=== PATIENT | female | born 1940 | race Caucasian/White ===

== ENCOUNTER → 2017-05-25 11:54 | Outpatient (CLI) | payer MEDICARE, OTHER, SELFPAY ==
[2017-05-25 14:22] LABS: Erythrocyte Sedimentation Rate 18 mm/hr (0-30)
[2017-05-25 14:37] LABS: ALB/GLOB Ratio 1.1 RATIO (0.9-2.4); AST(SGOT) 24 U/L (15-37); Alanine Aminotransfer ALT/SGPT 25 U/L (13-56); Albumin, Serum 4.1 g/dL (3.2-5.0); Alkaline Phosphatase 78 U/L (45-117); Anion Gap 8 (5-15); BUN 23 mg/dL (7-18); BUN/Creat Ratio 28.4 RATIO (10-20); Calcium,Total 9.1 mg/dL (8.5-10.1); Chloride 106 mmol/L (98-107); Creatinine, Serum 0.81 mg/dL (0.55-1.02); EST Glomerular Filtration Rate 73 mL/min (>60); Est Glom Filt Rate - Afr Amer 89 mL/min (>60); Globulin 3.7 g/dL (2.2-4.2); Glucose 96 mg/dL (74-106); Potassium 4.8 mmol/L (3.5-5.1); Protein, Total 7.8 g/dL (6.4-8.2); Sodium Level 137 mmol/L (136-145); Thyroid Stim Hormone (TSH) 1.41 uIU/mL (0.358-3.74)
== END ==
PROVIDERS: Family Provider Internal Medicine; PCP Internal Medicine; Visit Provider Internal Medicine Endocrinology, Diabetes & Metabolism
DX: E03.8 Other specified hypothyroidism (principal); E55.9 Vitamin D deficiency, unspecified; R77.1 Abnormality of globulin; M81.0 Age-related osteoporosis without current pathological fracture
CPT/HCPCS: 36415; 80053; 82306; 84443; 85652

== ENCOUNTER → 2017-06-08 11:11 | Outpatient (CLI) | payer MEDICARE, OTHER, SELFPAY ==
--- NOTE | 2017-06-08 11:20 | RAD_ITS ---
STUDY: X-RAY CHEST REASON FOR EXAM: Female, 77 years old. Preop knee replacement TECHNIQUE: Frontal and lateral views of the chest. COMPARISON: CT scan 11/08/2015. FINDINGS: Normal lung volumes. On the left, there may be a 1.5 cm nodule of the mid left lung versus a density in the fourth rib. This needs further evaluation with CT scan. No infiltrates. No effusions. Normal size heart. Normal mediastinum and dede. Normal visualized pulmonary arteries. There is atherosclerotic tortuosity of the aortic arch and descending thoracic aorta. Normal visualized thoracic spine. Normal visualized ribs, clavicles, and shoulders. There is no demonstrated abnormality of the visualized soft tissue structures of the upper abdomen. RAD/Chest PA and Lateral IMPRESSION: On the left, there may be a 1.5 cm nodule of the mid left lung versus a density in the fourth rib. This needs further evaluation with CT scan. Electronically Signed: Tyrone Weems MD at 20:38 EDT , Service support ,
== END ==
PROVIDERS: Family Provider Internal Medicine; PCP Internal Medicine; Visit Provider Orthopaedic Surgery
DX: Z01.810 Encounter for preprocedural cardiovascular examination (principal); Z01.811 Encounter for preprocedural respiratory examination
CPT/HCPCS: 71046

== ENCOUNTER → 2017-06-18 12:40 | Outpatient (CLI) | payer MEDICARE, OTHER, SELFPAY ==
--- NOTE | 2017-06-18 12:42 | ECHOD_ITS ---
Reason For Study: MURMUR Procedure This was a 2D Doppler, Color Flow transthoracic echocardiogram. The exam was of fair technical quality due to diminished acoustic windows. The study was technically difficult. Exam performed in department. Left Ventricle Normal LV size. Left ventricular systolic function is normal. The estimated ejection fraction is 65 %. Unable to assess diastolic dysfunction. No regional wall motion abnormalities noted. Right Ventricle Normal RV size. Normal systolic function. Atria The left atrium is mildly enlarged. Normal right atrium. No doppler evidence for ASD. Mitral Valve There is mild mitral annular calcification. Extension of the mitral annular calcifcation onto the posterior mitral valve leaflet. Mild (1+) mitral valve insufficiency. Tricuspid Valve Normal tricuspid valve. Trivial tricuspid valve insufficiency. Right ventricular systolic pressure estimated to be 24 mmHg. Aortic Valve Trisinus/trileaflet aortic valve. Mild diffuse aortic valve thickening. Pulmonic Valve Normal pulmonic valve. Great Vessels Borderline enlarged aortic root. Calcified aortic root. Pericardium/Pleural No pericardial effusion. MMode/2D Measurements & Calculations LVIDd: 3.9 cm IVSd: 1.1 cm Ao root diam: 2.7 cm LVIDs: 2.7 cm LVPWd: 1.3 cm LA dimension: 3.5 cm FS: 30.4 % LAV(MOD-bp): 46.5 ml LA A4 area: 16.0 cm2 RA A4 area: 9.7 cm2 LAV(MOD-bp) Indexed: 29.8 ml/m2 LAV(MOD-sp2): 41.0 ml LAV(MOD-sp4): 43.0 ml Doppler Measurements & Calculations MV E max antonino: 62.7 cm/sec Lat Peak E' Antonino: 7.0 cm/sec Med Peak E' Antonino: 4.8 cm/sec MV A max antonino: 103.7 cm/sec E/E' lat: 9.0 E/E' med: 13.0 MV E/A: 0.61 Ao V2 max: 146.6 cm/sec LV V1 max: 99.6 cm/sec PA V2 max: 122.3 cm/sec Ao max P.6 mmHg LV V1 max P.0 mmHg TR max antonino: 230.3 cm/sec TR max P.4 mmHg Interpretation Summary The study was technically difficult. Left ventricular systolic function is normal. The estimated ejection fraction is 65 %. The left atrium is mildly enlarged. There is mild mitral annular calcification. Extension of the mitral annular calcifcation onto the posterior mitral valve leaflet. Mild (1+) mitral valve insufficiency. Trivial tricuspid valve insufficiency. Mild diffuse aortic valve thickening. Borderline enlarged aortic root. Calcified aortic root. Right ventricular systolic pressure estimated to be 24 mmHg. Unable to assess diastolic dysfunction. Ordering Physician: Richie Avila Referring Physician: Melisa Lucero Performed By: Guera Gould, SEBASTIAN, RVT
== END ==
PROVIDERS: Family Provider Internal Medicine; PCP Internal Medicine; Visit Provider Internal Medicine Cardiovascular Disease
DX: R01.1 Cardiac murmur, unspecified (principal)
CPT/HCPCS: 93306

== ENCOUNTER → 2017-06-25 10:03 | Outpatient (CLI) | payer MEDICARE, OTHER, SELFPAY ==
--- NOTE | 2017-06-25 10:06 | CDU_ITS ---
Reason For Study: CAROTID STENOSIS Rt. Velocities/BP Lt. Velocities/BP Prox CCA 58.8/4.64 cm/sec. Prox CCA 84.7/8.65 cm/sec. Mid CCA 48.9/8.97 cm/sec. Mid CCA 69.8/11.0 cm/sec. Dist CCA 51.0/6.93 cm/sec. Dist CCA 64.6/13.3 cm/sec. Prox ICA 166.0/17.4 cm/sec. Prox ICA 119.0/18.3 cm/sec. Mid ICA 140.0/20.2 cm/sec. Mid ICA 91.1/18.4 cm/sec. Dist ICA 110.0/21.5 cm/sec. Dist ICA 96.9/23.6 cm/sec. Rt. ICA/CCA = 166.0/48.9=3.4. Lt. ICA/CCA = 119.0/69.8=1.7. Prox ECA 103.0/0.0 cm/sec. Prox ECA 122.0/0.0 cm/sec. Rt. Vert. 46.4/7.07 cm/sec. Lt. Vert. 57.5/11.4 cm/sec. Right Extracranial There is intimal thickening but no significant atherosclerotic plaque noted in the right common carotid artery. There is heterogeneous, irregular atherosclerotic plaque noted in the right internal carotid artery. There is intimal thickening but no significant atherosclerotic plaque noted in the right external carotid artery. Antegrade flow is noted in the right vertebral artery. Left Extracranial There is homogeneous, smooth atherosclerotic plaque noted in the left common carotid artery. There is heterogeneous, irregular atherosclerotic plaque noted in the left internal carotid artery. The atherosclerotic plaque causes acoustic shadowing. There is intimal thickening but no significant atherosclerotic plaque noted in the left external carotid artery. Antegrade flow is noted in the left vertebral artery. Procedure Carotid Duplex [id number]. The exam was diagnostic. Exam performed in department. Interpretation Summary Moderate (50-69%) stenosis right extracranial internal carotid. Mild (<50%) stenosis left extracranial internal carotid. Flow within the vertebral arteries is antegrade bilaterally. Ordering Physician: Melisa Lucero Referring Physician: Melisa Lucero Performed By: Guera Gould RDCS, AINSLEY
== END ==
PROVIDERS: Family Provider Internal Medicine; PCP Internal Medicine; Visit Provider Internal Medicine
DX: I65.23 Occlusion and stenosis of bilateral carotid arteries (principal)
CPT/HCPCS: 93880

== ENCOUNTER → 2017-06-27 14:55 | Outpatient (CLI) | payer MEDICARE, OTHER, SELFPAY ==
--- NOTE | 2017-06-27 14:57 | CT_ITS ---
STUDY: CT CHEST WITH CONTRAST REASON FOR EXAM: Female, 77 years old. Pulmonary nodule. Shortness of breath. RADIATION DOSAGE (If Supplied By Facility): CTDIvol = ( 7.45 ) mGy, DLP = ( 287.77 ) mGycm TECHNIQUE: Transaxial imaging was performed following intravenous administration of 75mL ml of Isovue 300 contrast material. Coronal and sagittal reformatted images were created. Individualized dose optimization techniques were used for this CT. COMPARISON: X-ray dated 06/08/2017. CT dated 11/08/2015. FINDINGS: There are no pulmonary infiltrates or pleural effusions. There are no pulmonary nodules or masses. There is no pneumothorax. The heart and pericardium are within normal limits. There is no thoracic lymphadenopathy. There is stable ectasia of the ascending aorta, measuring up to 4 cm. The aorta is otherwise normal in caliber. There is no evidence of thoracic aortic dissection. Images through the upper abdomen demonstrate no significant abnormality. There are healing left-sided rib fractures noted. These appear subacute in nature. CT/Chest WITH Contrast IMPRESSION: Clear lungs. No pulmonary nodules or masses. Healing left-sided rib fractures which appear subacute in nature. Stable ectasia of the ascending aorta, measuring 4 cm. Electronically Signed: Omar Lunsford, at 16:09 EDT Tel , Service support ,
== END ==
PROVIDERS: Family Provider Internal Medicine; PCP Internal Medicine; Visit Provider Internal Medicine
DX: R91.1 Solitary pulmonary nodule (principal)
CPT/HCPCS: 71260; Q9967

== ENCOUNTER → 2017-07-06 13:23 | Outpatient (CLI) | payer MEDICARE, OTHER, SELFPAY ==
--- NOTE | 2017-07-06 13:27 | CT_ITS ---
STUDY: CTA NECK WITH CONTRAST REASON FOR EXAM: Female, 77 years old. History of carotid stenosis. RADIATION DOSAGE (If Supplied By Facility): CTDIvol = ( 20.53 ) mGy, DLP = ( 460.72 ) mGycm TECHNIQUE: CT angiography with multi-detector data acquisition was performed from the aortic arch to the skull base following intravenous administration of 100 ml of Isovue 370 contrast. MIP images were reconstructed from the axial data set. Post-processing of the angiographic images was performed, with multiplanar reformation and 3D reconstruction. Individualized dose optimization techniques were used for this CT. COMPARISON: Comparison is made with prior examination dated May 12, 2016. FINDINGS: AORTIC ARCH: There is mild degree of atherosclerotic calcific plaque formation of the aortic arch and great vessels arising from the aortic arch, without a hemodynamically significant stenosis. There is a normal origin of the brachiocephalic, left common carotid, and left subclavian arteries. RIGHT CAROTID ARTERIES: Normal right common carotid artery (CCA). Normal right common carotid bulb. There is mild atherosclerotic plaque formation of the origin of the right internal carotid artery with less than 50% cross sectional diameter stenosis. Normal visualized cervical portion of the right internal carotid artery. Normal origin of the right external carotid artery (ECA). LEFT CAROTID ARTERIES: Normal left common carotid artery (CCA). Normal left common carotid bulb. There is mild atherosclerotic plaque formation of the origin of the left internal carotid artery with less than 50% cross sectional diameter stenosis. Normal visualized cervical portion of the left internal carotid artery. Normal origin of the left external carotid artery (ECA). VERTEBRAL ARTERIES: There is enhancement within the bilateral vertebral arteries with a small right vertebral artery, and a dominant left vertebral artery. CT/CTA Neck W/WO Contrast IMPRESSION: Stable examination demonstrating less than 50% narrowing of the origin of the right and left internal carotid arteries. Left dominant vertebral artery. Electronically Signed: Wilbert Garcia MD at 14:38 EDT Tel [phone], Service support ,
== END ==
PROVIDERS: Family Provider Internal Medicine; PCP Internal Medicine; Visit Provider Internal Medicine
DX: I65.23 Occlusion and stenosis of bilateral carotid arteries (principal)
CPT/HCPCS: 70498; Q9967

== ENCOUNTER 2017-07-07 11:04 | Inpatient (IN) | payer MEDICARE, OTHER, SELFPAY ==
[2017-07-07 11:04] VITALS: BP 164/98; PULSE 70; RESP 15; TEMP 36.8; O2SAT 98; BMI 25.4
--- NOTE | 2017-07-07 11:17 | RAD_ITS ---
STUDY: X-RAY CHEST REASON FOR EXAM: Female, 77 years old. Status post fall TECHNIQUE: Single AP portable view of the chest. COMPARISON: June 08, 2017 chest x-ray FINDINGS: Interstitial markings are mildly prominent. Likely summation of shadows there is some increased density within the left upper lobe near the left sixth rib. There is no demonstrated pleural abnormality. There is mild cardiac enlargement. Normal mediastinum and dede. Normal visualized pulmonary arteries. Normal visualized aortic arch and descending thoracic aorta. Normal visualized thoracic spine. There is a old left sixth rib fracture. There is focal increased density. There is no demonstrated abnormality of the visualized soft tissue structures of the upper abdomen. RAD/Chest 1 View (Portable) IMPRESSION: Old left sixth rib fracture. Increased density within the left upper lobe which may represent a focal infiltrate and/or mass. Recommend follow-up CT scan of the chest. No definitive evidence of an acute fracture. Electronically Signed: Danna Santoro MD at 12:33 EDT Tel , Service support ,
--- NOTE | 2017-07-07 11:17 | EKG12_ITS ---
Test Reason : LOWER EXTREMITY Blood Pressure : / mmHG Vent. Rate : 056 BPM Atrial Rate : 056 BPM P-R Int : 188 ms QRS Dur : 070 ms QT Int : 442 ms P-R-T Axes : 050 001 050 degrees QTc Int : 426 ms Sinus bradycardia Inferior infarct , age undetermined Abnormal ECG Confirmed by ANTONIO MELGAR, GONZALEZ ([id number]), video editor BONILLA PAYNE ([id number]) on 07/11/2017 2:17:57 PM Referred By: Melisa Lucero Confirmed By:GONZALEZ ALVAREZ MD
--- NOTE | 2017-07-07 11:18 | RAD_ITS ---
STUDY: X-RAY - PELVIS AND LEFT HIP REASON FOR EXAM: Female, 77 years old. Injury TECHNIQUE: Radiological exam, hip, unilateral, with pelvis when performed; 2 or 3 views. COMPARISON: None. FINDINGS: There is comminuted intertrochanteric fracture on the left. There is no osseous destruction. There is no osteonecrosis. The left hip joint space is well-maintained. There is slight loss of articular cartilage of the right hip. The SI joints appear intact. Symphysis pubis appears intact. RAD/Hip 2-3 Views with Pelvis IMPRESSION: Comminuted left intertrochanteric fracture Electronically Signed: Omar Washburn MD at 12:17 EDT Tel , Service support ,
--- NOTE | 2017-07-07 11:20 | ED.DCSUM_ITS ---
- ER Visit Summary Date of Service: 07/07/17 Chief Complaint: []tripped concrete left hip pain unable to walk History of Present Illness: The patient is a 77 F [] as above usual state of health until she tripped and fell unable to walk saying her left hip pain no head neck chest or abdominal pain no fever cough her only complaint is left hip pain. Physical Examination: [] L signs are within normal range, head neck chest unremarkable the lungs are clear the heart tones are normal abdomen soft nontender she has severe left hip pain to any type of range of motion and palpation the knee thigh tib-fib ankle and foot are unremarkable dorsi and plantarflexion toe function is normal the foot appears well perfused the right lower extremity the upper extremities are unremarkable her back is nontender neurologically she is awake moving all other extremities she denies head pain chest pain or abdominal pain Test Results: [] Emergency Department Course and Treatment: [] The patient studies are all generally unremarkable see those reports, the left hip x-ray shows intertrochanteric hip fracture, spoke with Dr. Dyllan Cain in the hospitalist though by to see the patient shortly for further management and admission Treatment Plan: [] Disposition: [] Admit stable Impression: [] Left intertrochanteric hip fracture, fall This note was generated with miradio[employer]fm dictation software. It may contain incorrect words, spelling, and punctuation that were not noted in review of the chart prior to signing ED Disposition - Plan for ED Patient: Chief Complaint: Lower Extremity Injury Referrals: Melisa Lucero DO [Primary Care Provider] -
[2017-07-07] MEDS: Ondansetron 4 MG/2 ML Vial IV ×2 (11:35→21:47)
[2017-07-07] MEDS: morphine 8 MG/ML Syringe IV (11:36)
[2017-07-07 11:50] LABS: Absolute Lymphocyte Count 1.87 X10^3/ul (0.83-4.51); Absolute Neutrophil Count 3.2 X10^3/uL (2.0-7.7); Basophil# 0.05 X10^3/uL; Basophil% 0.9 % (0-1); Eosinophil# 0.18 X10^3/uL; Eosinophils% 3.1 % (0-5); Hematocrit 33.8 % (37-47); Lymphocyte # 1.87 X10^3/ul (4.0); Lymphocyte % 32.6 % (19-41); Mean Corp Hgb Conc 32.5 g/gl (32-36); Mean Corpuscular Hgb 30.1 pg (27.0-32.0); Mean Corpuscular Volume 92.3 fL (81-99); Monocyte# 0.45 X10^3/uL; Monocyte% 7.8 % (0-10); Neutrophil # 3.17 X10^3/uL (2.7-7.7); Neutrophil % 55.3 % (47-70); Platelet Count 269 K/mm3 (150-450); RBC Distribution Width CV 13.6 % (11.6-14.6); RBC Distribution Width SD 45.8 fl (35.1-43.9); Red Blood Count 3.66 M/mm3 (4.2-5.4); White Blood Count 5.7 K/mm3 (4.4-11.0)
[2017-07-07 11:51] LABS: POSITIVE COUNT NO; POSITIVE DIFFERENTIAL NO; POSITIVE MORPHOLOGY NO
[2017-07-07 12:07] LABS: Anion Gap 7 (5-15); BUN 26 mg/dL (7-18); BUN/Creat Ratio 28.4 RATIO (10-20); Calcium,Total 9.2 mg/dL (8.5-10.1); Chloride 108 mmol/L (98-107); Creatinine, Serum 0.92 mg/dL (0.55-1.02); EST Glomerular Filtration Rate 64 mL/min (>60); Est Glom Filt Rate - Afr Amer 77 mL/min (>60); Estimated Creatinine Clearance 37.95 ml/min; Glucose 101 mg/dL (74-106); Potassium 4.7 mmol/L (3.5-5.1); Sodium Level 139 mmol/L (136-145)
[2017-07-07 12:31] VITALS: BP 147/62; PULSE 77; RESP 14; O2SAT 92
[2017-07-07] MEDS: Lactated Ringers 1,000 ML 100 ML IV (14:00)
[2017-07-07 14:10] VITALS: BP 132/59; PULSE 77; RESP 18; TEMP 36.7; O2SAT 94; BMI 24.7
[2017-07-07] MEDS: Morphine 4 MG/ML Syringe IV ×3 (14:38→21:47)
--- NOTE | 2017-07-07 19:00 | HP.PCM_ITS ---
Problem List (1) Closed comminuted fracture of left hip Status: Acute Qualifiers: Encounter type: initial encounter Qualified Code(s): S72.092A - Other fracture of head and neck of left femur, initial encounter for closed fracture (2) Carotid stenosis Status: Chronic Qualifiers: Laterality: bilateral Qualified Code(s): I65.23 - Occlusion and stenosis of bilateral carotid arteries (3) Hypothyroidism Status: Chronic Qualifiers: Hypothyroidism type: acquired Qualified Code(s): E03.9 - Hypothyroidism, unspecified (4) Hypertension Status: Chronic Qualifiers: Hypertension type: essential hypertension History of Present Illness Date of Admission: 07/07/17 Chief Complaint: Fracture left hip. Patient is a 77 years old female who presents with left hip fracture, admitted on 07/07/17. She fell at home, which was ill-defined. She denied of any dizziness, loss of consciousness, or chest pain, but unable to explain how she fell. She was found to have left comminuted fracture. Dr. Cain was contacted already, planing for surgery. She has history of hypotension during the shoulder surgery in the past. The cause was thought to be due to vasovagal reaction. She actually had plan to have knee surgery in few month, started work-up for preparation. 2D- echocardiogram was done on 06/18/17, showed preserved LV function and mild MR, trivial TR, and mitral and aortic root calcification. CTA of neck showed stable 50% bilateral Internal carotid artery stenosis. Past Medical History Past Medical History (Chronic Problems): Chronic Problems (Last Reviewed 06/08/17 @ 10:11 by Alesha Mead) Carotid stenosis (Chronic) Hypothyroidism (Chronic) Hyperlipidemia (Chronic) Hypertension (Chronic) Allergies ceftriaxone [From Rocephin] Allergy (Verified 07/07/17 11:10) Hives Penicillins Allergy (Verified 07/07/17 11:10) Hives Sulfa (Sulfonamide Antibiotics) Allergy (Verified 07/07/17 11:10) Hives tramadol Allergy (Verified 07/07/17 11:10) Nausea AGITATION vancomycin Allergy (Verified 07/07/17 11:10) Hives OMAR CASSIE SYNDROME Home Medications: Ambulatory Orders Medication Instructions Recorded Acetaminophen [Tylenol Arthritis] 650 mg PO 4X/DAY PRN PRN 10/05/15 Aspirin E.C. [Ecotrin] 81 mg PO QHS 10/05/15 Levothyroxine [Synthroid] 25 mcg PO DAILY 10/05/15 Lisinopril [Zestril] 20 mg PO QHS 10/05/15 Milk Thistle 525 mg PO DAILY 10/05/15 Multivitamins,Therapeutic 1 tab PO DAILY 10/05/15 [Multivitamin] [place]-3 Fatty Acids/Fish Oil [Fish 360 mg PO DAILY 10/05/15 Oil 1,000 mg Capsule] Pitavastatin Calcium [Livalo] 4 mg PO QHS 10/05/15 Ubidecarenone/Vit E Acetate [Co 100 mg PO DAILY 10/05/15 Q-10 100 mg Softgel] Venlafaxine HCl [Effexor] 75 mg PO QHS 10/05/15 cholecalciferol (vitamin D3) 1,000 2,000 unit PO BID tab 06/06/17 unit tablet gabapentin 300 mg capsule 300 mg PO QHS cap 06/08/17 Fexofenadine HCl 180 mg PO DAILY 07/07/17 Vitamin B Complex/Folic Acid 1 tab PO DAILY 07/07/17 [Super B Maxi Complex Caplet] Smoking Status: Never smoker - *Family History Maternal History Items: - - Unremarkable for CV probems in immediate families. Review of Systems Comment: ROS: In general: Patient has been in good health, denied of any constitutional symptoms, such as weight loss, or gain, fever, chills, or night sweats. Patient denied of any profound fatigue. HEENT: Unremarkable. Patient denied of any dizziness, chronic headache, blurred vision, double vision, dry mouth, or nasal congestion. CV/respiratory: There is no exertional shortness of breath, chest pain, palpitation, wheezing, cough, claudication, cold feet, or peripheral edema. GI: Patient denied any abdominal pain, nausea, vomiting, diarrhea, constipation, melena, or hematochezia. : Patient denied any significant urinary symptoms. Neurology: Unremarkable. There is no history of seizure as an adult. Psychological: Unremarkable. ?. Endocrine: Unremarkable. Musculoskeletal: fracture left hip. VTE Information - Inpt Only VTE Present on Admission: No VTE Mechan Device Prophylaxis: SCD's VTE Pharm Prophylaxis ordered?: No Reason prophylaxis not ordered:: Medical Contraindication - pending surgery. Patient Problems: Active and Suspected Problems (Last Reviewed 04/27/18 @ 10:11 by Alesha Mead) Closed comminuted fracture of left hip (Acute) Objective: In general, patient is a well-nourished and developed adult. HEENT: Head is atraumatic, and normocephalic. Pupils are equal, round, and reactive to light and accommodations. Neck is supple. There is no lymphadenopathy, or thyromegaly. Oral mucosa is pink, and moist. There are no lesions. Heart: Auscultation is normal with regular rhythm and rate. CARLOS A right 2nc ICS. S1 and S2 are present. Point of maximal impulse is not displaced. Lungs: Lungs are clear to auscultation bilaterally. There is no wheezing, or crackles. Abdomen: Abdominal wall is non-tender, and non-distended. There is no palpable mass or organomegaly. Normoactive bowel sounds are present. Extremities: There is no cyanosis or clubbing. Peripheral pulses are palpable. There is no edema. Tender over left proximal leg. Skin: There are no any skin discoloration or lesions. Neurological: CN II - XII are intact. Sensory and motor functions are grossly normal with no obvious deficit. Cerebellar functions are within normal range. Gait was not tested. - Physical Exam Vital Signs Temp Pulse Resp BP Pulse Ox 98.0 F 77 18 132/59 H 94 07/07/17 14:10 07/07/17 14:10 07/07/17 14:10 07/07/17 14:10 07/07/17 14:10 Oxygen Delivery Method Room Air Weight: 135 lb 3.2 oz Body Mass Index (BMI) 24.7 ECHO 06/18/17 Left ventricular systolic function is normal. The estimated ejection fraction is 65 %. The left atrium is mildly enlarged. There is mild mitral annular calcification. Extension of the mitral annular calcifcation onto the posterior mitral valve leaflet. Mild (1+) mitral valve insufficiency. Trivial tricuspid valve insufficiency. Mild diffuse aortic valve thickening. Borderline enlarged aortic root. Calcified aortic root. Right ventricular systolic pressure estimated to be 24 mmHg. Unable to assess diastolic dysfunction. Diagnostic Data Chest X-Ray 07/07/17 11:17 IMPRESSION: Old left sixth rib fracture. Increased density within the left upper lobe which may represent a focal infiltrate and/or mass. Recommend follow-up CT scan of the chest. No definitive evidence of an acute fracture. Electronically Signed: Danna Santoro MD at 12:33 EDT Tel , Service support , Hip/Pelvis X-Ray 07/07/17 11:18 IMPRESSION: Comminuted left intertrochanteric fracture Electronically Signed: Omar Washburn MD at 12:17 EDT Tel , Service support , Assessment/Plan Active and Suspected Problems (Last Reviewed 06/08/17 @ 10:11 by Alesha Mead) Closed comminuted fracture of left hip (Acute) Patient is a 77 years old female who presents with left hip fracture, admitted on 07/07/17. She fell at home, which was ill-defined. She denied of any dizziness, loss of consciousness, or chest pain, but unable to explain how she fell. She was found to have left comminuted fracture. Dr. Cain was contacted already, planing for surgery. She has history of hypotension during the shoulder surgery in the past. The cause was thought to be due to vasovagal reaction. She actually had plan to have knee surgery in few month, started work-up for preparation. 2D- echocardiogram was done on 06/18/17, showed preserved LV function and mild MR, trivial TR, and mitral and aortic root calcification. CTA of neck showed stable 50% bilateral Internal carotid artery stenosis. #1 Left comminuted fracture. S/P fall, probably mechanical. She had recent work-up for anticipating surgery in the fall. She is asymptomatic, no evidence of CHF. She has no respiratory issues. Proceed with surgery. #2 Essential hypertension. Blood pressure is adequate. #3 Carotid artery stenosis. Non-obstructive. Continue current medications. VTE prophylaxis: SCD only, anticipating surgery. Plan to start anticoagulation after surgery. GI prophylaxis: PPI po. She is full code. Disposition: to be determined. Code Visit [facility] E&M: [id number] [facility]
[2017-07-07] MEDS: Famotidine 20 MG Tablet PO (22:03)
--- NOTE | 2017-07-07 22:05 | NURSING ---
Pt attempted to take Pepcid, had difficulty swallowing it with water, choked and coughed a little, but able to spit pill out. States sometimes has trouble swallowing pills.
[2017-07-07 22:13] VITALS: BP 172/70; PULSE 89; RESP 16; TEMP 36.6; O2SAT 97
--- NOTE | 2017-07-07 23:45 | NURSING ---
Emesis x1 after attempting to eat a yogurt. Denies need for nausea med, states feels better now.
[2017-07-07] MEDS: Dext 5%-0.45% NS 1,000 ML 100 ML IV (23:56)
[2017-07-08] VITALS (17 sets, daily range): BP systolic 104–165; BP diastolic 45–92; PULSE 65–111; RESP 16–18; TEMP 36.6–37.9; O2SAT 88–100; BMI 24.7
[2017-07-08] MEDS: Morphine 4 MG/ML Syringe IV ×4 (01:40→15:54)
[2017-07-08] MEDS: proMETHazine 25 MG/ML Syringe 12.5 MG IV (03:08)
[2017-07-08 06:50] LABS: Absolute Lymphocyte Count 1.46 X10^3/ul (0.83-4.51); Absolute Neutrophil Count 6.5 X10^3/uL (2.0-7.7); Basophil# 0.03 X10^3/uL; Basophil% 0.3 % (0-1); Eosinophil# 0.04 X10^3/uL; Eosinophils% 0.5 % (0-5); Hematocrit 31.3 % (37-47); Hemoglobin 10.1 g/dl (12.0-15.0); International Normalized Ratio 1.2; Lymphocyte # 1.46 X10^3/ul (4.0); Lymphocyte % 16.5 % (19-41); Mean Corp Hgb Conc 32.3 g/gl (32-36); Mean Corpuscular Hgb 30.6 pg (27.0-32.0); Mean Corpuscular Volume 94.8 fL (81-99); Mean Platelet Vol. 10.1 fl (6.2-12.0); Monocyte# 0.84 X10^3/uL; Monocyte% 9.5 % (0-10); Neutrophil # 6.47 X10^3/uL (2.7-7.7); Neutrophil % 72.9 % (47-70); Partial Thromboplast Time 29.8 Seconds (24.1-36.2); Platelet Count 249 K/mm3 (150-450); Prothrombin Time (Protime)PT. 15.3 SECONDS (11.7-14.9); RBC Distribution Width CV 13.4 % (11.6-14.6); RBC Distribution Width SD 44.5 fl (35.1-43.9); White Blood Count 8.9 K/mm3 (4.4-11.0)
[2017-07-08 07:13] LABS: POSITIVE COUNT NO; POSITIVE DIFFERENTIAL NO; POSITIVE MORPHOLOGY NO
[2017-07-08 07:33] LABS: Anion Gap 5 (5-15); BUN 15 mg/dL (7-18); Calcium,Total 8.1 mg/dL (8.5-10.1); Chloride 105 mmol/L (98-107); Creatinine, Serum 0.79 mg/dL (0.55-1.02); EST Glomerular Filtration Rate 75 mL/min (>60); Est Glom Filt Rate - Afr Amer 91 mL/min (>60); Estimated Creatinine Clearance 38.44 ml/min; Glucose 129 mg/dL (74-106); Potassium 4.7 mmol/L (3.5-5.1); Sodium Level 136 mmol/L (136-145)
--- NOTE | 2017-07-08 07:44 | NURSING ---
Report called to R[facility], informed her that pt had had choked last evening on pepcid and yogurt, temp now is 99.1. LCTA on RA, went from 90 to 99% after she used incentive spirometer.
--- NOTE | 2017-07-08 08:05 | PCM.CONS.GEN ---
Reason for Consult History of Present Illness: The patient is a 77 year old female that fell outside her home yesterday when she stumbled injuring her left hip and left wrist. She denies any head injury or loss of consciousness. She denies being dizzy. She states her left hip felt fine before. She does have a history of bilateral knee arthritis pain. Left worse than right. Denies fever chills or systemic symptoms. Patient was not able to ambulate after falling. Brought to the hospital for evaluation and treatment. Patient has been planning left knee replacement in October [] Past Medical History Past Medical History (Chronic Problems): Chronic Problems (Last Reviewed 06/08/17 @ 10:11 by Alesha Mead) Carotid stenosis (Chronic) Hypothyroidism (Chronic) Hyperlipidemia (Chronic) Hypertension (Chronic) Allergies ceftriaxone [From Rocephin] Allergy (Verified 07/07/17 11:10) Hives Penicillins Allergy (Verified 07/07/17 11:10) Hives Sulfa (Sulfonamide Antibiotics) Allergy (Verified 07/07/17 11:10) Hives tramadol Allergy (Verified 07/08/17 03:03) Nausea sweating, heart racing, AGITATION vancomycin Allergy (Verified 07/07/17 11:10) Hives TAE CASSIE SYNDROME Home Medications: Ambulatory Orders Medication Instructions Recorded Acetaminophen [Tylenol Arthritis] 650 mg PO 4X/DAY PRN PRN 10/05/15 Levothyroxine [Synthroid] 25 mcg PO DAILY 10/05/15 Lisinopril [Zestril] 20 mg PO QHS 10/05/15 Pamplico-3 Fatty Acids/Fish Oil [Fish 360 mg PO DAILY 10/05/15 Oil 1,000 mg Capsule] Pitavastatin Calcium [Livalo] 4 mg PO QHS 10/05/15 RX: Aspirin E.C. [Ecotrin] 81 mg PO QHS 10/05/15 RX: Milk Thistle 525 mg PO DAILY 10/05/15 RX: Multivitamins,Therapeutic 1 tab PO DAILY 10/05/15 [Multivitamin] Ubidecarenone/Vit E Acetate [Co 100 mg PO DAILY 10/05/15 Q-10 100 mg Softgel] Venlafaxine HCl [Effexor] 75 mg PO QHS 10/05/15 cholecalciferol (vitamin D3) 1,000 2,000 unit PO BID tab 06/06/17 unit tablet gabapentin 300 mg capsule 300 mg PO QHS cap 06/08/17 RX: Fexofenadine HCl 180 mg PO DAILY 07/07/17 Vitamin B Complex/Folic Acid 1 tab PO DAILY 07/07/17 [Super B Maxi Complex Caplet] Surgical History: no surgical history Smoking Status: Never smoker - *Family History Maternal History Items: - - Unremarkable for CV probems in immediate families. Review of Systems Musculoskeletal: Reports: Arm Pain - osteoporosis. Denies: Joint Pain, Joint Tenderness Patient Problems: Active and Suspected Problems (Last Reviewed 06/08/17 @ 10:11 by Alesha Mead) Closed comminuted fracture of left hip (Acute) Objective: Patient has mild shortening and external rotation left hip. Pain on palpation left hip. No right hip pain with motion. No calf pain or swelling bilaterally. Negative Homans sign bilaterally. THONG hose and SCD on the right. Not tolerated on the left. She is able to plantarflex and dorsiflex toes and ankles. Left hip was not overly stressed. Left wrist has mild bruising. No significant pain on palpation about the left wrist. Good motion and strength at the left wrist. Patient declined an x-ray of the left wrist. Laboratory work and vital signs reviewed. X-rays reviewed showing an intertrochanteric left hip fracture but significant pre-existing left hip arthritis Case Discussed with ER physician, nursing staff, hospitalist as well as pharmacist - Physical Exam Vital Signs Temp Pulse Resp BP Pulse Ox 99.1 F 90 16 125/63 H 91 07/08/17 07:22 07/08/17 07:28 07/08/17 07:22 07/08/17 07:22 07/08/17 07:22 Oxygen Delivery Method Room Air Weight: 61.326 kg Body Mass Index (BMI) 24.7 Intake and Output for Last 24 Hours 07/06/17 07/07/17 07/08/17 23:59 23:59 23:59 Intake Total 1995 Output Total 725 / 725 Balance 1271 / 1271 Laboratory Tests Past 24 Hrs 07/08/17 07/08/17 07/08/17 06:10 06:10 06:10 WBC 8.9 RBC 3.30 L Hgb 10.1 L Hct 31.3 L MCV 94.8 MCH 30.6 MCHC 32.3 RDW 13.4 RDW Differential 44.5 H Plt Count 249 MPV 10.1 Immature Gran % (Auto) 0.300 Neut % (Auto) 72.9 H Lymph % (Auto) 16.5 L [place] % (Auto) 9.5 Eos % (Auto) 0.5 Baso % (Auto) 0.3 Absolute Neuts (auto) 6.5 Absolute Lymphs (auto) 1.46 Total Counted Not Reportable PT 15.3 H INR 1.2 APTT 29.8 Sodium 136 Potassium 4.7 Chloride 105 Carbon Dioxide 26.0 Anion Gap 5 BUN 15 Creatinine 0.79 Estim Creat Clear Calc 38.44 Est GFR (MDRD) Af Amer 91 Est GFR (MDRD) Non-Af 75 BUN/Creatinine Ratio 19.0 Glucose 129 H Calcium 8.1 L TSH 2.30 Blood Type Antibody Screen 07/08/17 06:10 WBC RBC Hgb Hct MCV MCH MCHC RDW RDW Differential Plt Count MPV Immature Gran % (Auto) Neut % (Auto) Lymph % (Auto) [place] % (Auto) Eos % (Auto) Baso % (Auto) Absolute Neuts (auto) Absolute Lymphs (auto) Total Counted PT INR APTT Sodium Potassium Chloride Carbon Dioxide Anion Gap BUN Creatinine Estim Creat Clear Calc Est GFR (MDRD) Af Amer Est GFR (MDRD) Non-Af BUN/Creatinine Ratio Glucose Calcium TSH Blood Type O POSITIVE Antibody Screen NEGATIVE Assessment/Plan Active and Suspected Problems (Last Reviewed 06/08/17 @ 10:11 by Alesha Mead) Closed comminuted fracture of left hip (Acute) Left hip displaced intertrochanteric hip fracture: Recommend surgical fixation. They understand surgical options of replacement or internal fixation. This discussed at length with and patient. they have consented to internal fixation. Risk of surgery including but not limited to from operative or postoperative complications. Risk of anesthetic complications such as heart attacks, strokes, seizures, or . Risk of infections. Risk of damage to nerves arteries tendons. Risk of inadvertent fractures or dislocations. Risk of bone or wound healing complications. Possibility of nonunion malunion pain stiffness weakness. Possible need for further surgery such as hardware removal. Risk of DVT PE and other potential complications could lead to or disability explained. No guarantees were stated or implied. All of their questions were answered. Appropriate informed consent was obtained and signed for surgical intervention. Medical problems including hypertension hypothyroidism, PMR, osteoporosis -evaluation and treatment per hospitalist service Bilateral knee arthritis, tentative plan for left total knee replacement in October
[2017-07-08] MEDS: HYDROcodone Bitartrate/Apap 5/325 Tablet PO ×2 (09:30→14:38)
[2017-07-08] MEDS: Clindamycin 900 MG/50 ML BAG 75 MG IV (10:47)
--- NOTE | 2017-07-08 11:00 | RAD_ITS ---
STUDY: X-RAY - PELVIS AND LEFT HIP REASON FOR EXAM: Female, 77 years old. Fracture TECHNIQUE: Radiological exam, hip, unilateral, with pelvis when performed; 2 or 3 views. COMPARISON: 07/07/2017 FINDINGS: Multiple intraoperative spot views show fixation of the left intertrochanteric fracture. RAD/Hip Min 2 Views (Portable) IMPRESSION: Fixation left intertrochanteric fracture Electronically Signed: Omar Washburn MD at 12:50 EDT Tel , Service support ,
--- NOTE | 2017-07-08 11:25 | PCM.PROGNOTE ---
Patient Problems: Active and Suspected Problems (Last Reviewed 06/08/17 @ 10:11 by Alesha Mead) Closed comminuted fracture of left hip (Acute) Subjective: She is feeling well. Plan for surgery today. - Physical Exam General: Alert, Oriented x3, Cooperative HEENT: Atraumatic, PERRLA, EOMI Oral: Moist Mucosa, No Gingival or Mucosal Lesions/ Ulcerations Neck: Supple, No JVD, Negative Carotid Bruits Lungs: Clear to auscultation, Normal air movement, No rhonchi, No wheeze, No rales Cardiovascular: Regular rate, Regular Rhythm, Normal S1, Normal S2, Murmur - CARLOS A 2nd right ICS. Abdomen: Bowel Sounds Present, Soft, Non Tender, Non-Distended, No Hepato-splenomegaly Extremities: No clubbing, No cyanosis, No edema, Peripheral Pulses Normal Skin: No rashes, No breakdown Musculoskeletal: No Tenderness to Palpation of Joints or Extremities, No Muscle Wasting Neurological: Cranial nerves II-XII grossly intact, Neuro grossly intact Psych/Mental Status: Normal Affect Vital Signs Temp Pulse Resp BP Pulse Ox 99.1 F 90 16 125/63 H 91 07/08/17 07:22 07/08/17 07:28 07/08/17 07:22 07/08/17 07:22 07/08/17 08:16 Oxygen Delivery Method Room Air Weight: 135 lb 3.2 oz Body Mass Index (BMI) 24.7 Intake and Output for Last 24 Hours 07/06/17 07/07/17 07/08/17 23:59 23:59 23:59 Intake Total 1995 Output Total 725 / 725 Balance 1271 / 1271 Laboratory Tests Past 24 Hrs 07/08/17 07/08/17 07/08/17 06:10 06:10 06:10 WBC 8.9 RBC 3.30 L Hgb 10.1 L Hct 31.3 L MCV 94.8 MCH 30.6 MCHC 32.3 RDW 13.4 RDW Differential 44.5 H Plt Count 249 MPV 10.1 Immature Gran % (Auto) 0.300 Neut % (Auto) 72.9 H Lymph % (Auto) 16.5 L [place] % (Auto) 9.5 Eos % (Auto) 0.5 Baso % (Auto) 0.3 Absolute Neuts (auto) 6.5 Absolute Lymphs (auto) 1.46 Total Counted Not Reportable PT 15.3 H INR 1.2 APTT 29.8 Sodium 136 Potassium 4.7 Chloride 105 Carbon Dioxide 26.0 Anion Gap 5 BUN 15 Creatinine 0.79 Estim Creat Clear Calc 38.44 Est GFR (MDRD) Af Amer 91 Est GFR (MDRD) Non-Af 75 BUN/Creatinine Ratio 19.0 Glucose 129 H Calcium 8.1 L TSH 2.30 Blood Type Antibody Screen 07/08/17 06:10 WBC RBC Hgb Hct MCV MCH MCHC RDW RDW Differential Plt Count MPV Immature Gran % (Auto) Neut % (Auto) Lymph % (Auto) [place] % (Auto) Eos % (Auto) Baso % (Auto) Absolute Neuts (auto) Absolute Lymphs (auto) Total Counted PT INR APTT Sodium Potassium Chloride Carbon Dioxide Anion Gap BUN Creatinine Estim Creat Clear Calc Est GFR (MDRD) Af Amer Est GFR (MDRD) Non-Af BUN/Creatinine Ratio Glucose Calcium TSH Blood Type O POSITIVE Antibody Screen NEGATIVE Diagnostic Data Chest X-Ray 07/07/17 11:17 IMPRESSION: Old left sixth rib fracture. Increased density within the left upper lobe which may represent a focal infiltrate and/or mass. Recommend follow-up CT scan of the chest. No definitive evidence of an acute fracture. Electronically Signed: Danna Santoro MD at 12:33 EDT Tel , Service support , Hip/Pelvis X-Ray 07/07/17 11:18 IMPRESSION: Comminuted left intertrochanteric fracture Electronically Signed: Omar Washburn MD at 12:17 EDT Tel , Service support , Medical Necessity - Tobacco Use Smoking Status: Never smoker Assessment/Plan Active and Suspected Problems (Last Reviewed 06/08/17 @ 10:11 by Alesha Mead) Closed comminuted fracture of left hip (Acute) Patient is a 77 years old female who presents with left hip fracture, admitted on 07/07/17. She fell at home, which was ill-defined. She denied of any dizziness, loss of consciousness, or chest pain, but unable to explain how she fell. She was found to have left comminuted fracture. Dr. Cain was contacted already, planing for surgery. She has history of hypotension during the shoulder surgery in the past. The cause was thought to be due to vasovagal reaction. She actually had plan to have knee surgery in few month, started work-up for preparation. 2D-echocardiogram was done on 06/18/17, showed preserved LV function and mild MR, trivial TR, and mitral and aortic root calcification. CTA of neck showed stable 50% bilateral Internal carotid artery stenosis. Plan for surgery today (07/08) #1 Left comminuted fracture. S/P fall, probably mechanical. She had recent work-up for anticipating surgery in the fall. She is asymptomatic, no evidence of CHF. She has no respiratory issues. Proceed with surgery. #2 Essential hypertension. Blood pressure is adequate. #3 Carotid artery stenosis. Non-obstructive. Continue current medications. VTE prophylaxis: SCD only, anticipating surgery. Plan to start anticoagulation after surgery. GI prophylaxis: PPI po. She is full code. Disposition: Likely rehab at [facility]. Code Visit Inpatient E&M: 97593 Subs Hosp L2
--- NOTE | 2017-07-08 11:36 | PCM.OP.BLANK ---
Operative Report Date of Procedure: 07/08/17 Preoperative diagnosis: Left hip displaced unstable intertrochanteric fracture Postoperative diagnosis: Same Title of operation: Left hip open reduction internal fixation, intramedullary nail fixation, locked Surgeon: Dr. Dyllan Cain Charger: Keerthi Rodriguez PA-C Anesthesia: Spinal anesthesia, Dr. Liu Medications: Clindamycin Indications for surgery: Patient is an 77-year-old female sustained a left hip fracture yesterday. Patient and their family explained diagnosis and treatment options. Patient evaluated by the medical services. Patient did wish to have surgery. Appropriate informed consent obtained and signed. Findings: Patient had a displaced unstable intertrochanteric hip fracture. They underwent standard reduction, internal fixation using a Cora short gamma nail. X-rays taken throughout. graduate teaching assistant, physician assistant professor of archaeology, was utilized throughout the entire procedure. They were vital to the procedure from beginning to end. They help with patient transfer, patient padding and positioning, fracture reduction, maintenance of fracture reduction, internal fixation of implants, wound closure, bandage application, patient transfer. Without surgical consultant, surgical time would have been significantly increased and surgical outcome could have been less optimal. Procedure: Patient was taken to the operating room. Placed under a general anesthetic and transferred to the operating table with the help of the assistant professor of archaeology. With the help of the assistant professor of archaeology patient was prepped and padded for surgery. Left foot was well-padded and placed in the traction boot. Right lower extremity was abducted and flexed out of harm's way. THONG hose and SCDs utilized. Fluoroscopy was brought in. With the help of the assistant professor of archaeology and manipulation of the limb, reduction was nicely obtained as verified under AP lateral and oblique fluoroscopic images. Reduction was improved with anterior to posterior pressure on the fracture site. Was also done throughout the procedure with the help of the assistant professor of archaeology as needed. Left hip was prepped padded draped in usual orthopedic sterile fashion for the procedure. Longitudinal incision was made just proximal to the greater trochanter. Taken through skin and subcutaneous tissue. Sharp awl was placed on the tip of the greater trochanter. Position verified under AP and lateral fluoroscopic images. This was then taken down inside the bone. Slightly bent ball-tipped guide socorro was then placed from the tip of the greater trochanter into the intra-medullary canal of the femur. Its position verified radiographically. Reamer was then done over the guide pin of with the help of the assistant professor of archaeology holding the soft tissue protector appropriately. On placing the nail we noted the distal canal to be too tight. We therefore remove the nail and used flexible reamers starting size 10 up to size 12.5 reaming the canal distal enough to allow for short nail placement. once reaming was done we placed the short 125? angle device over the guidepin. This was easily introduced. Guide oscorro removed. Outrigger device was utilized to position a guidepin from the lateral cortex of the femur across the fracture site and into the femoral head in a good position centrally, as noted on AP lateral and oblique fluoroscopic images. This was measured. Appropriate reaming done. Appreciate length lag screw was placed from the lateral cortex of the femur into the femoral head. A small amount of the screw was noted to be protruding laterally as planned. No cartilage penetration of the femoral head noted on any x-ray. Fracture was then compressed with the outrigger device. Screw was placed seated down completely, confirmed, and then loosened one fourth turn. We then used the outrigger device to place distal cross locking screw under standard technique. This was confirmed to be of adequate length in good position on AP and lateral images. Outrigger device removed. Final set of AP and lateral proximal x-rays taken and saved. His were thoroughly irrigated. Closing by the assistant professor of archaeology with deep 0 Vicryl, mid layer 0 Vicryl, inverted 2-0 Vicryl, skin timothy. Puncture wounds closed with inverted 2-0 Vicryl and timothy. Xeroform 4 x 4's ABD tape applied. Patient was awoken from their anesthetic, transferred back to their own bed with the help of the assistant professor of archaeology and into recovery room in satisfactory condition. Patient will continue to be admitted to the hospital under the hospitalist service. This note was generated with [employer] software. It may contain incorrect words, spelling, and punctuation that were not noted in checking the note before signing.
--- NOTE | 2017-07-08 11:38 | PN_ITS ---
Patient Problems: Active and Suspected Problems (Last Reviewed 06/08/17 @ 10:11 by Alesha Mead) Closed comminuted fracture of left hip (Acute) Subjective: She is feeling well. Plan for surgery today. - Physical Exam General: Alert, Oriented x3, Cooperative HEENT: Atraumatic, PERRLA, EOMI Oral: Moist Mucosa, No Gingival or Mucosal Lesions/ Ulcerations Neck: Supple, No JVD, Negative Carotid Bruits Lungs: Clear to auscultation, Normal air movement, No rhonchi, No wheeze, No rales Cardiovascular: Regular rate, Regular Rhythm, Normal S1, Normal S2, Murmur - CARLOS A 2nd right ICS. Abdomen: Bowel Sounds Present, Soft, Non Tender, Non-Distended, No Hepato- splenomegaly Extremities: No clubbing, No cyanosis, No edema, Peripheral Pulses Normal Skin: No rashes, No breakdown Musculoskeletal: No Tenderness to Palpation of Joints or Extremities, No Muscle Wasting Neurological: Cranial nerves II-XII grossly intact, Neuro grossly intact Psych/Mental Status: Normal Affect Vital Signs Temp Pulse Resp BP Pulse Ox 99.1 F 90 16 125/63 H 91 07/08/17 07:22 07/08/17 07:28 07/08/17 07:22 07/08/17 07:22 07/08/17 08:16 Oxygen Delivery Method Room Air Weight: 135 lb 3.2 oz Body Mass Index (BMI) 24.7 Intake and Output for Last 24 Hours 07/06/17 07/07/17 07/08/17 23:59 23:59 23:59 Intake Total 1995 Output Total 725 / 725 Balance 1271 / 1271 Laboratory Tests Past 24 Hrs 07/08/17 07/08/17 07/08/17 06:10 06:10 06:10 WBC 8.9 RBC 3.30 L Hgb 10.1 L Hct 31.3 L MCV 94.8 MCH 30.6 MCHC 32.3 RDW 13.4 RDW Differential 44.5 H Plt Count 249 MPV 10.1 Immature Gran % (Auto) 0.300 Neut % (Auto) 72.9 H Lymph % (Auto) 16.5 L [place] % (Auto) 9.5 Eos % (Auto) 0.5 Baso % (Auto) 0.3 Absolute Neuts (auto) 6.5 Absolute Lymphs (auto) 1.46 Total Counted Not Reportable PT 15.3 H INR 1.2 APTT 29.8 Sodium 136 Potassium 4.7 Chloride 105 Carbon Dioxide 26.0 Anion Gap 5 BUN 15 Creatinine 0.79 Estim Creat Clear Calc 38.44 Est GFR (MDRD) Af Amer 91 Est GFR (MDRD) Non-Af 75 BUN/Creatinine Ratio 19.0 Glucose 129 H Calcium 8.1 L TSH 2.30 Blood Type Antibody Screen 07/08/17 06:10 WBC RBC Hgb Hct MCV MCH MCHC RDW RDW Differential Plt Count MPV Immature Gran % (Auto) Neut % (Auto) Lymph % (Auto) [place] % (Auto) Eos % (Auto) Baso % (Auto) Absolute Neuts (auto) Absolute Lymphs (auto) Total Counted PT INR APTT Sodium Potassium Chloride Carbon Dioxide Anion Gap BUN Creatinine Estim Creat Clear Calc Est GFR (MDRD) Af Amer Est GFR (MDRD) Non-Af BUN/Creatinine Ratio Glucose Calcium TSH Blood Type O POSITIVE Antibody Screen NEGATIVE Diagnostic Data Chest X-Ray 07/07/17 11:17 IMPRESSION: Old left sixth rib fracture. Increased density within the left upper lobe which may represent a focal infiltrate and/or mass. Recommend follow-up CT scan of the chest. No definitive evidence of an acute fracture. Electronically Signed: Danna Santoro MD at 12:33 EDT Tel , Service support , Hip/Pelvis X-Ray 07/07/17 11:18 IMPRESSION: Comminuted left intertrochanteric fracture Electronically Signed: Omar Washburn MD at 12:17 EDT Tel , Service support , Medical Necessity - Tobacco Use Smoking Status: Never smoker Assessment/Plan Active and Suspected Problems (Last Reviewed 06/08/17 @ 10:11 by Alesha Mead) Closed comminuted fracture of left hip (Acute) Patient is a 77 years old female who presents with left hip fracture, admitted on 07/07/17. She fell at home, which was ill-defined. She denied of any dizziness, loss of consciousness, or chest pain, but unable to explain how she fell. She was found to have left comminuted fracture. Dr. Cain was contacted already, planing for surgery. She has history of hypotension during the shoulder surgery in the past. The cause was thought to be due to vasovagal reaction. She actually had plan to have knee surgery in few month, started work-up for preparation. 2D- echocardiogram was done on 06/18/17, showed preserved LV function and mild MR, trivial TR, and mitral and aortic root calcification. CTA of neck showed stable 50% bilateral Internal carotid artery stenosis. Plan for surgery today (07/08) #1 Left comminuted fracture. S/P fall, probably mechanical. She had recent work-up for anticipating surgery in the fall. She is asymptomatic, no evidence of CHF. She has no respiratory issues. Proceed with surgery. #2 Essential hypertension. Blood pressure is adequate. #3 Carotid artery stenosis. Non-obstructive. Continue current medications. VTE prophylaxis: SCD only, anticipating surgery. Plan to start anticoagulation after surgery. GI prophylaxis: PPI po. She is full code. Disposition: Likely rehab at [facility]. Code Visit Inpatient E&M: 79841 Subs Hosp L2
--- NOTE | 2017-07-08 11:40 | OP.PCM_ITS ---
Operative Report Date of Procedure: 07/08/17 Preoperative diagnosis: Left hip displaced unstable intertrochanteric fracture Postoperative diagnosis: Same Title of operation: Left hip open reduction internal fixation, intramedullary nail fixation, locked Surgeon: Dr. Dyllan Cain Facing Baster: Keerthi Rodriguez PA-C Anesthesia: Spinal anesthesia, Dr. Liu Medications: Clindamycin Indications for surgery: Patient is an 77-year-old female sustained a left hip fracture yesterday. Patient and their family explained diagnosis and treatment options. Patient evaluated by the medical services. Patient did wish to have surgery. Appropriate informed consent obtained and signed. Findings: Patient had a displaced unstable intertrochanteric hip fracture. They underwent standard reduction, internal fixation using a Coar short gamma nail. X-rays taken throughout. certified medical technician assistant, physician assistant dean of students, was utilized throughout the entire procedure. They were vital to the procedure from beginning to end. They help with patient transfer, patient padding and positioning, fracture reduction, maintenance of fracture reduction, internal fixation of implants, wound closure, bandage application, patient transfer. Without surgical lead, surgical time would have been significantly increased and surgical outcome could have been less optimal. Procedure: Patient was taken to the operating room. Placed under a general anesthetic and transferred to the operating table with the help of the assistant dean of students. With the help of the assistant dean of students patient was prepped and padded for surgery. Left foot was well-padded and placed in the traction boot. Right lower extremity was abducted and flexed out of harm's way. THONG hose and SCDs utilized. Fluoroscopy was brought in. With the help of the assistant dean of students and manipulation of the limb, reduction was nicely obtained as verified under AP lateral and oblique fluoroscopic images. Reduction was improved with anterior to posterior pressure on the fracture site. Was also done throughout the procedure with the help of the assistant dean of students as needed. Left hip was prepped padded draped in usual orthopedic sterile fashion for the procedure. Longitudinal incision was made just proximal to the greater trochanter. Taken through skin and subcutaneous tissue. Sharp awl was placed on the tip of the greater trochanter. Position verified under AP and lateral fluoroscopic images. This was then taken down inside the bone. Slightly bent ball-tipped guide socorro was then placed from the tip of the greater trochanter into the intra- medullary canal of the femur. Its position verified radiographically. Reamer was then done over the guide pin of with the help of the assistant dean of students holding the soft tissue protector appropriately. On placing the nail we noted the distal canal to be too tight. We therefore remove the nail and used flexible reamers starting size 10 up to size 12.5 reaming the canal distal enough to allow for short nail placement. once reaming was done we placed the short 125? angle device over the guidepin. This was easily introduced. Guide socorro removed. Outrigger device was utilized to position a guidepin from the lateral cortex of the femur across the fracture site and into the femoral head in a good position centrally, as noted on AP lateral and oblique fluoroscopic images. This was measured. Appropriate reaming done. Appreciate length lag screw was placed from the lateral cortex of the femur into the femoral head. A small amount of the screw was noted to be protruding laterally as planned. No cartilage penetration of the femoral head noted on any x-ray. Fracture was then compressed with the outrigger device. Screw was placed seated down completely, confirmed, and then loosened one fourth turn. We then used the outrigger device to place distal cross locking screw under standard technique. This was confirmed to be of adequate length in good position on AP and lateral images. Outrigger device removed. Final set of AP and lateral proximal x-rays taken and saved. His were thoroughly irrigated. Closing by the assistant dean of students with deep 0 Vicryl, mid layer 0 Vicryl, inverted 2-0 Vicryl, skin timothy. Puncture wounds closed with inverted 2-0 Vicryl and timothy. Xeroform 4 x 4's ABD tape applied. Patient was awoken from their anesthetic, transferred back to their own bed with the help of the assistant dean of students and into recovery room in satisfactory condition. Patient will continue to be admitted to the hospital under the hospitalist service. This note was generated with [employer] software. It may contain incorrect words, spelling, and punctuation that were not noted in checking the note before signing.
--- NOTE | 2017-07-08 13:36 | CM.UR ---
When went to meet with patient she had already been taken to OR. Luz Elena Becerra RN, CCM.
[2017-07-08] MEDS: Dext 5%-0.45% NS 1,000 ML 100 ML IV (13:39)
[2017-07-08] MEDS: 0.9% NaCl Peripheral Flush Adult/Peds IV ×2 (13:40→15:55)
[2017-07-08] MEDS: tiZANidine HCl 2 MG Tablet 4 MG PO (17:33)
[2017-07-08] MEDS: Clindamycin 600 MG/50 ML BAG 100 MG IV (18:47)
[2017-07-09] VITALS (8 sets, daily range): BP systolic 87–152; BP diastolic 44–67; PULSE 64–94; RESP 16–18; TEMP 36.7–36.9; O2SAT 93–99
[2017-07-09] MEDS: Dext 5%-0.45% NS 1,000 ML 100 ML IV ×3 (00:29→23:54)
[2017-07-09] MEDS: tiZANidine HCl 2 MG Tablet 4 MG PO (01:40)
[2017-07-09] MEDS: Clindamycin 600 MG/50 ML BAG 100 MG IV (03:14)
[2017-07-09] MEDS: 0.9% Normal Saline 1,000 ML 999 ML IV (04:44)
--- NOTE | 2017-07-09 05:55 | US_ITS ---
STUDY: RENAL ULTRASOUND - COMPLETE REASON FOR EXAM: Female, 77 years old. Renal insufficiency low urine output TECHNIQUE: Ultrasound evaluation of the kidneys was performed with real-time and static villar-scale imaging. COMPARISON: None. FINDINGS: RIGHT KIDNEY: Normal location of the right kidney, which is normal in size. The right kidney measures 9.9 x 3.9 x 3.9 cm. There is diffuse thinning of the renal cortex. The renal cortex measures 0.5 cm. There is no right renal mass or cyst. There are no right renal calculi. There is no right hydronephrosis. DISTAL RIGHT URETER: There is non-visualization of the distal right ureter. There is no demonstrated right ureterovesical junction calculus. There is a visualized right ureteral jet. LEFT KIDNEY: Normal location of the left kidney, which is normal in size. The left kidney measures 9.5 x 4.3 x 4.1 cm. There is a normal cortex of the left kidney. The renal cortex measures 0.9 cm. There is no left renal mass or cyst. There are no left renal calculi. There is no left hydronephrosis. DISTAL LEFT URETER: There is non-visualization of the distal left ureter. There is no demonstrated left ureterovesical junction calculus. There is a visualized left ureteral jet. BLADDER: The bladder volume is 187.73. The bladder wall measures 6.3 mm. US/Kidney and Bladder IMPRESSION: Right renal cortical thinning. This is suggestive of underlying chronic medical renal disease. Minimal left renal cortical thinning. Mild thickening of the bladder wall measuring 6.3 mm. Could consider cystitis in the appropriate clinical setting. No evidence of hydronephrosis. Electronically Signed: Danna Santoro MD at 23:27 EDT Tel , Service support ,
[2017-07-09] MEDS: HYDROcodone Bitartrate/Apap 5/325 Tablet PO ×4 (05:58→23:54)
[2017-07-09] MEDS: Rivaroxaban 10 MG Tablet PO (05:59)
[2017-07-09 07:09] LABS: Absolute Lymphocyte Count 1.87 X10^3/ul (0.83-4.51); Absolute Neutrophil Count 7.4 X10^3/uL (2.0-7.7); Basophil# 0.03 X10^3/uL; Basophil% 0.3 % (0-1); Eosinophil# 0.36 X10^3/uL; Eosinophils% 3.3 % (0-5); Hematocrit 28.6 % (37-47); Lymphocyte # 1.87 X10^3/ul (4.0); Lymphocyte % 17.1 % (19-41); Mean Corp Hgb Conc 31.5 g/gl (32-36); Mean Corpuscular Hgb 30.8 pg (27.0-32.0); Mean Corpuscular Volume 97.9 fL (81-99); Mean Platelet Vol. 10.4 fl (6.2-12.0); Monocyte# 1.32 X10^3/uL; Neutrophil # 7.36 X10^3/uL (2.7-7.7); Neutrophil % 67.1 % (47-70); POSITIVE COUNT NO; POSITIVE DIFFERENTIAL NO; POSITIVE MORPHOLOGY NO; Platelet Count 203 K/mm3 (150-450); RBC Distribution Width CV 13.8 % (11.6-14.6); RBC Distribution Width SD 47.1 fl (35.1-43.9); Red Blood Count 2.92 M/mm3 (4.2-5.4)
[2017-07-09 08:03] LABS: Anion Gap 10 (5-15); BUN 16 mg/dL (7-18); BUN/Creat Ratio 12.9 RATIO (10-20); Calcium,Total 7.6 mg/dL (8.5-10.1); Chloride 103 mmol/L (98-107); Creatinine, Serum 1.24 mg/dL (0.55-1.02); EST Glomerular Filtration Rate 45 mL/min (>60); Est Glom Filt Rate - Afr Amer 54 mL/min (>60); Glucose 121 mg/dL (74-106); Potassium 4.5 mmol/L (3.5-5.1); Sodium Level 134 mmol/L (136-145)
--- NOTE | 2017-07-09 09:13 | PCM.PN.HOSP ---
Patient Problems: Active and Suspected Problems (Last Reviewed 06/08/17 @ 10:11 by Alesha Mead) Closed comminuted fracture of left hip (Acute) Subjective: confused this AM. Stating she is having problems. C/O pain in left hip and pain in feet (though doesn't specify laterality or if bilateral, or if chronic). Vitals/I&O's: Vital Signs Temp Pulse Resp BP Pulse Ox 36.8 C 70 18 110/55 L 93 07/09/17 05:00 07/09/17 05:00 07/09/17 05:00 07/09/17 05:00 07/09/17 07:28 Oxygen Flow Rate (L/min) 1 Oxygen Delivery Method Room Air Weight: 61.326 kg Body Mass Index (BMI) 24.7 Intake and Output for Last 24 Hours 07/07/17 07/08/17 07/09/17 23:59 23:59 23:59 Intake Total 4989 / 4989 1480 / 1480 Output Total 5 / 2095 150 / 150 Balance 2894 / 2894 1330 / 1330 General: Alert, Confused HEENT: Atraumatic, Normocephalic Neck: No Nodes, Thyroid Normal Size and Texture Lungs: Clear to auscultation, Normal air movement, No rhonchi, No wheeze Cardiovascular: Regular rate, Regular Rhythm, Normal S1, Normal S2, No murmurs Abdomen: Bowel Sounds Present, Soft, Non Tender, Non-Distended, No Hepato-splenomegaly Extremities: No edema, No Calf Tenderness Skin: No rashes, No breakdown Psych/Mental Status: Normal Affect, Appropriate Laboratory Results 07/09/17 06:15: Sodium 134 L, Potassium 4.5, Chloride 103, Carbon Dioxide 21.0, Anion Gap 10, BUN 16, Creatinine 1.24 H, Estim Creat Clear Calc 31.00, Est GFR (MDRD) Af Amer 54 L, Est GFR (MDRD) Non-Af 45 L, BUN/Creatinine Ratio 12.9, Glucose 121 H, Calcium 7.6 L 07/09/17 06:15: WBC 11.0, RBC 2.92 L, Hgb 9.0 L, Hct 28.6 L, MCV 97.9, MCH 30.8, MCHC 31.5 L, RDW 13.8, RDW Differential 47.1 H, Plt Count 203, MPV 10.4, Immature Gran % (Auto) 0.200, Neut % (Auto) 67.1, Lymph % (Auto) 17.1 L, [place] % (Auto) 12.0 H, Eos % (Auto) 3.3, Baso % (Auto) 0.3, Absolute Neuts (auto) 7.4, Absolute Lymphs (auto) 1.87, Total Counted Not Reportable Current Medications Acetaminophen (Tylenol) 650 mg PO Q6H PRN PRN PRN Reason: Mild Pain (1-3)/Temp > 100.7 F Hydrocodone Bitart/Acetaminophen ([place] 5mg-325mg) 1 - 2 tablet PO Q6H PRN PRN PRN Reason: Mild-Mod Pain (1-5/10) Last Admin: 07/09/17 05:58 Dose: 2 tablet Al Hydroxide/Mg Hydroxide (Mylanta Ii) 30 ml PO Q6H PRN PRN PRN Reason: Gastric burning Aspirin (Ecotrin) 81 mg PO QHS [facility] Cholecalciferol (Vitamin D) 2,000 unit PO BID [facility] Famotidine (Pepcid) 20 mg PO DAILY [facility] Last Admin: 07/08/17 09:57 Dose: Not Given Gabapentin (Neurontin) 300 mg PO QHS [facility] Dextrose/Sodium Chloride () 1,000 mls @ 100 mls/hr IV .Q10H [facility] Last Admin: 07/09/17 00:29 Dose: 100 mls/hr Levothyroxine Sodium (Synthroid) 25 mcg PO DAILY@0600 [facility] Lisinopril (Zestril) 20 mg PO QHS [facility] Loratadine (Claritin) 10 mg PO DAILY [facility] Magnesium Hydroxide (Milk Of Magnesia) 30 ml PO DAILY PRN PRN PRN Reason: Constipation Non-Formulary Medication (Pitavastatin Calcium [Livalo]) 4 mg PO QHS [facility] Non-Formulary Medication (Vitamin B Complex/Folic Acid [Super B Maxi Complex Caplet]) 1 tab PO DAILY [facility] Ondansetron HCl (Zofran) 4 mg IV Q8H PRN PRN PRN Reason: NAUSEA Last Admin: 07/07/17 21:47 Dose: 4 mg Promethazine HCl (Phenergan) 12.5 mg IV Q6H PRN PRN PRN Reason: NAUSEA/VOMITING Last Admin: 07/08/17 03:08 Dose: 12.5 mg Rivaroxaban (Xarelto) 10 mg PO DAILY@0600 [facility] Last Admin: 07/09/17 05:59 Dose: 10 mg Sodium Chloride () 5 - 30 ml IV UD PRN PRN Reason: SALINE FLUSH Last Admin: 07/08/17 15:55 Dose: 20 ml Tizanidine HCl (Zanaflex) 4 mg PO Q8H PRN PRN PRN Reason: SPASMS Last Admin: 07/09/17 01:40 Dose: 4 mg Venlafaxine HCl (Effexor) 75 mg PO QHS [facility] Zolpidem Tartrate (Ambien (Generic)) 5 mg PO QHS PRN PRN PRN Reason: INSOMNIA Medical Necessity - Tobacco Use Smoking Status: Never smoker Assessment/Plan Active and Suspected Problems (Last Reviewed 06/08/17 @ 10:11 by Alesha Mead) Closed comminuted fracture of left hip (Acute) 1. Left intertrochanteric fracture s/p ORIF with intramedullary nail. POD #1 mgmt per ortho 2. Confusion: noted by pt with some perseverating (on foot pain) suspect multifactorial (pt had norco at 0558), lack of sleep amongst others I do not advise stopping narcotics at this time given her fracture and surgery, but may have to if symptoms persists or worsens 3. Depression: resume effexor 4. DVT proph: per orth. on Xarelto MARÍA estrada Code Visit Inpatient E&M: 65853 Subs Hosp L2
--- NOTE | 2017-07-09 09:14 | PN.ORTHO_ITS ---
Patient Problems: Active and Suspected Problems (Last Reviewed 06/08/17 @ 10:11 by Alesha Mead) Closed comminuted fracture of left hip (Acute) Subjective: Patient states she is having significant left hip pain. Patient and her agree she is very pain sensitive. They also agreed that she is having some mental changes related to most likely her pain medication. Patient is however alert and oriented ?3 and cooperative with exam. She denies rest pain. She has pain with moving her left hip. Pain is better than before surgery. According to her she was able to sleep well last evening. is concerned that she is not getting her normal antidepressants and other medications from home. Objective: Left hip bandages on clean and dry. Left lower extremity is neurovascular intact. No calf pain or swelling bilaterally. Negative Homans sign bilaterally. THONG hose and SCDs are on. Legs are neurovascularly intact. Mild swelling about the left thigh. No tense compartments of the left thigh. No significant pain on palpation about the left thigh or knee. Left hip passive flexion is 70? with some pain. Internal and external rotation 5? with some pain. No pain at the right side. Vital signs and laboratory work reviewed. - Physical Exam Vital Signs Temp Pulse Resp BP Pulse Ox 98.2 F 70 18 110/55 L 93 07/09/17 05:00 07/09/17 05:00 07/09/17 05:00 07/09/17 05:00 07/09/17 07:28 Oxygen Flow Rate (L/min) 1 Oxygen Delivery Method Room Air Weight: 61.326 kg Body Mass Index (BMI) 24.7 Intake and Output for Last 24 Hours 07/07/17 07/08/17 07/09/17 23:59 23:59 23:59 Intake Total 4989 / 4989 1480 / 1480 Output Total 2095 / 2095 150 / 150 Balance 2894 / 2894 1330 / 1330 Laboratory Tests Past 24 Hrs 07/09/17 07/09/17 06:15 06:15 WBC 11.0 RBC 2.92 L Hgb 9.0 L Hct 28.6 L MCV 97.9 MCH 30.8 MCHC 31.5 L RDW 13.8 RDW Differential 47.1 H Plt Count 203 MPV 10.4 Immature Gran % (Auto) 0.200 Neut % (Auto) 67.1 Lymph % (Auto) 17.[address] [place] % (Auto) 12.0 H Eos % (Auto) 3.3 Baso % (Auto) 0.3 Absolute Neuts (auto) 7.4 Absolute Lymphs (auto) 1.87 Total Counted Not Reportable Sodium 134 L Potassium 4.5 Chloride 103 Carbon Dioxide 21.0 Anion Gap 10 BUN 16 Creatinine 1.24 H Estim Creat Clear Calc 31.00 Est GFR (MDRD) Af Amer 54 L Est GFR (MDRD) Non-Af 45 L BUN/Creatinine Ratio 12.9 Glucose 121 H Calcium 7.6 L Medical Necessity - Tobacco Use Smoking Status: Never smoker Assessment/Plan Active and Suspected Problems (Last Reviewed 06/08/17 @ 10:11 by Alesha Mead) Closed comminuted fracture of left hip (Acute) Left hip fracture surgery postoperative day #1, internal fixation with intramedullary nail. Continue with partial weightbearing status. Ice if needed for pain. [place] or Tylenol for pain. Xarelto, aspirin for DVT prevention. Continue management of medical issues by hospitalist service. Will hopefully discharge in 1-2 days. DC Brown catheter today if okay with hospitalist service
--- NOTE | 2017-07-09 09:20 | PN_ITS ---
Patient Problems: Active and Suspected Problems (Last Reviewed 06/08/17 @ 10:11 by Alesha Mead) Closed comminuted fracture of left hip (Acute) Subjective: confused this AM. Stating she is having problems. C/O pain in left hip and pain in feet (though doesn't specify laterality or if bilateral, or if chronic). Vitals/I&O's: Vital Signs Temp Pulse Resp BP Pulse Ox 36.8 C 70 18 110/55 L 93 07/09/17 05:00 07/09/17 05:00 07/09/17 05:00 07/09/17 05:00 07/09/17 07:28 Oxygen Flow Rate (L/min) 1 Oxygen Delivery Method Room Air Weight: 61.326 kg Body Mass Index (BMI) 24.7 Intake and Output for Last 24 Hours 07/07/17 07/08/17 07/09/17 23:59 23:59 23:59 Intake Total 4989 / 4989 1480 / 1480 Output Total 5 / 2095 150 / 150 Balance 2894 / 2894 1330 / 1330 General: Alert, Confused HEENT: Atraumatic, Normocephalic Neck: No Nodes, Thyroid Normal Size and Texture Lungs: Clear to auscultation, Normal air movement, No rhonchi, No wheeze Cardiovascular: Regular rate, Regular Rhythm, Normal S1, Normal S2, No murmurs Abdomen: Bowel Sounds Present, Soft, Non Tender, Non-Distended, No Hepato- splenomegaly Extremities: No edema, No Calf Tenderness Skin: No rashes, No breakdown Psych/Mental Status: Normal Affect, Appropriate Laboratory Results 07/09/17 06:15: Sodium 134 L, Potassium 4.5, Chloride 103, Carbon Dioxide 21.0, Anion Gap 10, BUN 16, Creatinine 1.24 H, Estim Creat Clear Calc 31.00, Est GFR ( MDRD) Af Amer 54 L, Est GFR (MDRD) Non-Af 45 L, BUN/Creatinine Ratio 12.9, Glucose 121 H, Calcium 7.6 L 07/09/17 06:15: WBC 11.0, RBC 2.92 L, Hgb 9.0 L, Hct 28.6 L, MCV 97.9, MCH 30.8 , MCHC 31.5 L, RDW 13.8, RDW Differential 47.1 H, Plt Count 203, MPV 10.4, Immature Gran % (Auto) 0.200, Neut % (Auto) 67.1, Lymph % (Auto) 17.1 L, [place] % (Auto) 12.0 H, Eos % (Auto) 3.3, Baso % (Auto) 0.3, Absolute Neuts (auto) 7.4, Absolute Lymphs (auto) 1.87, Total Counted Not Reportable Current Medications Acetaminophen (Tylenol) 650 mg PO Q6H PRN PRN PRN Reason: Mild Pain (1-3)/Temp > 100.7 F Hydrocodone Bitart/Acetaminophen ([place] 5mg-325mg) 1 - 2 tablet PO Q6H PRN PRN PRN Reason: Mild-Mod Pain (1-5/10) Last Admin: 07/09/17 05:58 Dose: 2 tablet Al Hydroxide/Mg Hydroxide (Mylanta Ii) 30 ml PO Q6H PRN PRN PRN Reason: Gastric burning Aspirin (Ecotrin) 81 mg PO QHS [facility] Cholecalciferol (Vitamin D) 2,000 unit PO BID [facility] Famotidine (Pepcid) 20 mg PO DAILY [facility] Last Admin: 07/08/17 09:57 Dose: Not Given Gabapentin (Neurontin) 300 mg PO QHS [facility] Dextrose/Sodium Chloride () 1,000 mls @ 100 mls/hr IV .Q10H [facility] Last Admin: 07/09/17 00:29 Dose: 100 mls/hr Levothyroxine Sodium (Synthroid) 25 mcg PO DAILY@0600 [facility] Lisinopril (Zestril) 20 mg PO QHS [facility] Loratadine (Claritin) 10 mg PO DAILY [facility] Magnesium Hydroxide (Milk Of Magnesia) 30 ml PO DAILY PRN PRN PRN Reason: Constipation Non-Formulary Medication (Pitavastatin Calcium [Livalo]) 4 mg PO QHS [facility] Non-Formulary Medication (Vitamin B Complex/Folic Acid [Super B Maxi Complex Caplet]) 1 tab PO DAILY [facility] Ondansetron HCl (Zofran) 4 mg IV Q8H PRN PRN PRN Reason: NAUSEA Last Admin: 07/07/17 21:47 Dose: 4 mg Promethazine HCl (Phenergan) 12.5 mg IV Q6H PRN PRN PRN Reason: NAUSEA/VOMITING Last Admin: 07/08/17 03:08 Dose: 12.5 mg Rivaroxaban (Xarelto) 10 mg PO DAILY@0600 [facility] Last Admin: 07/09/17 05:59 Dose: 10 mg Sodium Chloride () 5 - 30 ml IV UD PRN PRN Reason: SALINE FLUSH Last Admin: 07/08/17 15:55 Dose: 20 ml Tizanidine HCl (Zanaflex) 4 mg PO Q8H PRN PRN PRN Reason: SPASMS Last Admin: 07/09/17 01:40 Dose: 4 mg Venlafaxine HCl (Effexor) 75 mg PO QHS [facility] Zolpidem Tartrate (Ambien (Generic)) 5 mg PO QHS PRN PRN PRN Reason: INSOMNIA Medical Necessity - Tobacco Use Smoking Status: Never smoker Assessment/Plan Active and Suspected Problems (Last Reviewed 06/08/17 @ 10:11 by Alesha Mead) Closed comminuted fracture of left hip (Acute) 1. Left intertrochanteric fracture * s/p ORIF with intramedullary nail. POD #1 * mgmt per ortho 2. Confusion: * noted by * pt with some perseverating (on foot pain) * suspect multifactorial (pt had norco at 0558), lack of sleep amongst others * I do not advise stopping narcotics at this time given her fracture and surgery , but may have to if symptoms persists or worsens 3. Depression: * resume effexor 4. DVT proph: per orth. on Xarelto MARÍA estrada Code Visit Inpatient E&M: 13487 Subs Hosp L2
[2017-07-09] MEDS: Famotidine 20 MG Tablet PO (10:54)
[2017-07-09] MEDS: Levothyroxine 25 MCG TABLET PO (11:01)
[2017-07-09] MEDS: Loratadine 10 MG Tablet PO (11:02)
[2017-07-09] MEDS: Ondansetron 4 MG/2 ML Vial IV (15:15)
[2017-07-09] MEDS: Acetaminophen 325 MG Tablet 650 MG PO (15:19)
[2017-07-09] MEDS: Atorvastatin Calcium 20 MG Tablet PO (21:43)
[2017-07-09] MEDS: Gabapentin 300 MG Capsule PO (21:43)
[2017-07-09] MEDS: Aspirin E.C. 81 MG Tablet PO (21:43)
[2017-07-09] MEDS: Lisinopril 20 MG Tablet PO (21:43)
[2017-07-09] MEDS: Venlafaxine XR 75 MG Capsule PO (21:43)
[2017-07-10 02:20] VITALS: BP 141/58; PULSE 95; RESP 16; TEMP 37.1; O2SAT 94
[2017-07-10] MEDS: HYDROcodone Bitartrate/Apap 5/325 Tablet PO ×2 (06:06→14:46)
[2017-07-10] MEDS: Levothyroxine 25 MCG TABLET PO (06:06)
[2017-07-10] MEDS: Rivaroxaban 10 MG Tablet PO (06:06)
[2017-07-10 06:09] LABS: Absolute Lymphocyte Count 1.16 X10^3/ul (0.83-4.51); Absolute Neutrophil Count 6.3 X10^3/uL (2.0-7.7); Basophil# 0.03 X10^3/uL; Basophil% 0.3 % (0-1); Eosinophil# 0.28 X10^3/uL; Eosinophils% 3.1 % (0-5); Hematocrit 24.4 % (37-47); Lymphocyte # 1.16 X10^3/ul (4.0); Lymphocyte % 12.8 % (19-41); Mean Corp Hgb Conc 32.8 g/gl (32-36); Mean Corpuscular Hgb 30.8 pg (27.0-32.0); Mean Corpuscular Volume 93.8 fL (81-99); Mean Platelet Vol. 10.1 fl (6.2-12.0); Monocyte# 1.26 X10^3/uL; Monocyte% 13.9 % (0-10); Neutrophil # 6.34 X10^3/uL (2.7-7.7); Neutrophil % 69.7 % (47-70); Platelet Count 193 K/mm3 (150-450); RBC Distribution Width CV 12.7 % (11.6-14.6); RBC Distribution Width SD 42.4 fl (35.1-43.9); White Blood Count 9.1 K/mm3 (4.4-11.0)
[2017-07-10 06:13] LABS: POSITIVE COUNT NO; POSITIVE DIFFERENTIAL NO; POSITIVE MORPHOLOGY NO
[2017-07-10 06:40] LABS: Anion Gap 9 (5-15); BUN 12 mg/dL (7-18); BUN/Creat Ratio 13.8 RATIO (10-20); Calcium,Total 7.2 mg/dL (8.5-10.1); Chloride 102 mmol/L (98-107); Creatinine, Serum 0.87 mg/dL (0.55-1.02); EST Glomerular Filtration Rate 67 mL/min (>60); Est Glom Filt Rate - Afr Amer 82 mL/min (>60); Estimated Creatinine Clearance 44.19 ml/min; Glucose 132 mg/dL (74-106); Potassium 4.6 mmol/L (3.5-5.1); Sodium Level 133 mmol/L (136-145)
[2017-07-10 08:20] VITALS: BP 99/66; PULSE 82; RESP 16; TEMP 36.7; O2SAT 94
[2017-07-10] MEDS: Vitamin B Comp W-C Capsule 1 CAP PO (08:38)
[2017-07-10] MEDS: Famotidine 20 MG Tablet PO (08:39)
[2017-07-10] MEDS: Loratadine 10 MG Tablet PO (08:39)
--- NOTE | 2017-07-10 08:48 | SLEEP ---
Seen patient and educated on the importance of getting screened for sleep disordered breathing. Patient verbalizes understanding however she states she has no issues or concerns about sleep disorders. I left patient with a brochure of information.
--- NOTE | 2017-07-10 10:45 | CASEMGMT ---
Social Work Met with pt and in room and introduced self and role of SW. Pt lives at home with her spouse independently in a one story home with two steps in. Pt does have a walker and toilet riser. Pt has previously been to [facility] and [facility]. SW discussed d/c options with pt and who are agreeable that pt cannot return home at this time. SW presented options of [facility] Inpt Rehab, TCU and [facility] SNF options. Explained difference in therapy of Rehab vs SNF and Medicare coverage of each. Pt and would prefer Inpt Rehab. Phone call to [facility] in [facility] and referral made. Bed is available and they are able to accept pt. Pt physician notified and d/c likely for today. Met with pt and and explained that pt can go to Inpt Rehab with possible d/c today. Pt and agreeable. Plan: [facility] Inpatient Rehab, when medically ready RAJENDRA Ingram
[2017-07-10 11:25] VITALS: BP 140/66; PULSE 87; RESP 18; TEMP 36.9; O2SAT 92
--- NOTE | 2017-07-10 12:52 | PCM.DC ---
- Discharge Diagnoses Current Active Problems: Current Active and Chronic Problems (Last Reviewed 06/08/17 @ 10:11 by Alesha Mead) Closed comminuted fracture of left hip (Acute) You will use the following diet at home:: Cardiac Your food should be the consistency of: Regular Your liquids should be the consistency of: Regular/Thin Discharge Activity: Return to Normal Activity, May not drive while taking narcotic pain medications. Weight Bearing Status: Weight bearing as tolerated Keep extremity elevated above heart level: Left Leg Call your doctor if your incision/area has: Continuous Slow Oozing, Sudden Increased Bleeding, Increased Pain/ Swelling, Increased Redness, Foul Smelling Discharge, Swelling at the incision site Call your doctor if you observe: Fever of 101 or Higher Allergies/Adverse Reactions: Allergies ceftriaxone [From Rocephin] Allergy (Verified 07/07/17 11:10) Hives Penicillins Allergy (Verified 07/07/17 11:10) Hives Sulfa (Sulfonamide Antibiotics) Allergy (Verified 07/07/17 11:10) Hives vancomycin Allergy (Verified 07/07/17 11:10) Hives [employer] tramadol Adverse Reaction (Verified 07/09/17 09:27) Nausea sweating, heart racing, AGITATION Medications to take at Discharge Acetaminophen [Tylenol Arthritis] 650 mg PO 4X/DAY PRN PRN 10/05/15 Aspirin E.C. [Ecotrin] 81 mg PO QHS 10/05/15 Levothyroxine [Synthroid] 25 mcg PO DAILY 10/05/15 Lisinopril [Zestril] 20 mg PO QHS 10/05/15 Milk Thistle 525 mg PO DAILY 10/05/15 Multivitamins,Therapeutic [Multivitamin] 1 tab PO DAILY 10/05/15 [place]-3 Fatty Acids/Fish Oil [Fish Oil 1,000 mg Capsule] 360 mg PO DAILY 10/05/15 Pitavastatin Calcium [Livalo] 4 mg PO QHS 10/05/15 Ubidecarenone/Vit E Acetate [Co Q-10 100 mg Softgel] 100 mg PO DAILY 10/05/15 Venlafaxine HCl [Effexor] 75 mg PO QHS 10/05/15 cholecalciferol (vitamin D3) 1,000 unit tablet 2,000 unit PO BID tab 06/06/17 gabapentin 300 mg capsule 300 mg PO QHS cap 06/08/17 Fexofenadine HCl 180 mg PO DAILY 07/07/17 Vitamin B Complex/Folic Acid [Super B Maxi Complex Caplet] 1 tab PO DAILY 07/07/17 Mag Hydrox/Al Hydrox/Simeth [Mylanta II] 30 ml PO Q6H PRN PRN udc 07/10/17 Magnesium Hydroxide [Milk Of Magnesia] 30 ml PO DAILY PRN PRN udc 07/10/17 Primary Care Physician: Melisa Lucero DO [Primary Care Provider] - Within 2 Weeks Please Follow Up With: Dyllan Cain MD When: 2 weeks Proposed Discharge Date: 07/10/17
--- NOTE | 2017-07-10 12:53 | PCM.DC.SUM ---
Discharge Date and Diagnosis - Problem List Patient Problems: Active and Suspected Problems (Last Reviewed 06/08/17 @ 10:11 by Alesha Mead) Closed comminuted fracture of left hip (Acute) Date of Admission: 07/07/17 Date of Discharge: 07/10/17 - Primary Discharge Diagnosis Active and Suspected Problems (Last Reviewed 06/08/17 @ 10:11 by Alesha Mead) Closed comminuted fracture of left hip (Acute) - Secondary Discharge Diagnosis Chronic Problems (Last Reviewed 06/08/17 @ 10:11 by Alesha Mead) Carotid stenosis (Chronic) Hypothyroidism (Chronic) Hyperlipidemia (Chronic) Hypertension (Chronic) Hospital Course and Treatment Imaging Results: Clinical Impression(s) from Imaging Studies Chest X-Ray 07/07/17 11:17 IMPRESSION: Old left sixth rib fracture. Increased density within the left upper lobe which may represent a focal infiltrate and/or mass. Recommend follow-up CT scan of the chest. No definitive evidence of an acute fracture. Electronically Signed: Danna Santoro MD at 12:33 EDT Tel , Service support , Hip/Pelvis X-Ray 07/07/17 11:18 IMPRESSION: Comminuted left intertrochanteric fracture Electronically Signed: Omar Washburn MD at 12:17 EDT Tel , Service support , Hip X-Ray 07/08/17 11:00 IMPRESSION: Fixation left intertrochanteric fracture Electronically Signed: Omar Washburn MD at 12:50 EDT Tel , Service support , Renal Ultrasound 07/09/17 05:55 IMPRESSION: Right renal cortical thinning. This is suggestive of underlying chronic medical renal disease. Minimal left renal cortical thinning. Mild thickening of the bladder wall measuring 6.3 mm. Could consider cystitis in the appropriate clinical setting. No evidence of hydronephrosis. Electronically Signed: Danna Santoro MD at 23:27 EDT Tel , Service support , Dyllan Cian Operations: - - Left hip open reduction internal fixation, intramedullary nail fixation, locked Summary of Care Provided: The patient is a 77 year old FWho fell at home and sustained a left comminuted hip fracture. Patient was taken to the OR and had ORIF on the by Dr. Cain. Patient's course was complicated by some confusion that occurred shortly after [place]. Patient's confusion subsequently resolved. Patient was evaluated and accepted for inpatient rehab and will be discharged there today. [] 1. Left intertrochanteric fracture s/p ORIF with intramedullary nail. POD #1 mgmt per ortho 2. Confusion: noted by pt with some perseverating (on foot pain) suspect multifactorial (pt had norco at 0558), lack of sleep amongst others I do not advise stopping narcotics at this time given her fracture and surgery, but may have to if symptoms persists or worsens 3. Depression: resume effexor 4. DVT proph: per orth. on Xarelto Physical Exam: Vital Signs Height 1.57 m Weight: 61.3 kg Weight in Pounds 135.1 lbs Pulse Ox 94 Temperature 36.7 C Pulse Rate 82 Respiratory Rate 16 Blood Pressure 99/66 Blood Pressure Position Sitting NAD. Afebrile. Alert. Nontoxic. Discharge Diet: No Restrictions Discharge Activity: Return to Normal Activity, May not drive while taking narcotic pain medications. Weight Bearing Status: Weight bearing as tolerated Keep extremity elevated above heart level: Left Leg Call your doctor if your incision/area has: Continuous Slow Oozing, Sudden Increased Bleeding, Increased Pain/ Swelling, Increased Redness, Foul Smelling Discharge, Swelling at the incision site Call your doctor if you observe: Fever of 101 or Higher Home Medications: Medications to take at Discharge Acetaminophen [Tylenol Arthritis] 650 mg PO 4X/DAY PRN PRN 10/05/15 Aspirin E.C. [Ecotrin] 81 mg PO QHS 10/05/15 Levothyroxine [Synthroid] 25 mcg PO DAILY 10/05/15 Lisinopril [Zestril] 20 mg PO QHS 10/05/15 Milk Thistle 525 mg PO DAILY 10/05/15 Multivitamins,Therapeutic [Multivitamin] 1 tab PO DAILY 10/05/15 [place]-3 Fatty Acids/Fish Oil [Fish Oil 1,000 mg Capsule] 360 mg PO DAILY 10/05/15 Pitavastatin Calcium [Livalo] 4 mg PO QHS 10/05/15 Ubidecarenone/Vit E Acetate [Co Q-10 100 mg Softgel] 100 mg PO DAILY 10/05/15 Venlafaxine HCl [Effexor] 75 mg PO QHS 10/05/15 cholecalciferol (vitamin D3) 1,000 unit tablet 2,000 unit PO BID tab 06/06/17 gabapentin 300 mg capsule 300 mg PO QHS cap 06/08/17 Fexofenadine HCl 180 mg PO DAILY 07/07/17 Vitamin B Complex/Folic Acid [Super B Maxi Complex Caplet] 1 tab PO DAILY 07/07/17 Mag Hydrox/Al Hydrox/Simeth [Mylanta II] 30 ml PO Q6H PRN PRN udc 07/10/17 Magnesium Hydroxide [Milk Of Magnesia] 30 ml PO DAILY PRN PRN udc 07/10/17 Primary Care Physician: Melisa Lucero DO [Primary Care Provider] - Within 2 Weeks Please Follow Up With: Dyllan Cain MD When: 2 weeks Disposition: Inpt Rehab Unit/Facility Minutes spent on discharge:: 32 Patient Condition:: Fair Medical Necessity - Tobacco Use Smoking Status: Never smoker Meaningful Use Info Meaningful Use Diagnoses (Choose all that apply): None applicable Code Visit Inpatient E&M: 80418 Disch Hosp
--- NOTE | 2017-07-10 13:00 | DS.PCM_ITS ---
Discharge Date and Diagnosis - Problem List Patient Problems: Active and Suspected Problems (Last Reviewed 06/08/17 @ 10:11 by Alesha Mead) Closed comminuted fracture of left hip (Acute) Date of Admission: 07/07/17 Date of Discharge: 07/10/17 - Primary Discharge Diagnosis Active and Suspected Problems (Last Reviewed 06/08/17 @ 10:11 by Alesha Mead) Closed comminuted fracture of left hip (Acute) - Secondary Discharge Diagnosis Chronic Problems (Last Reviewed 06/08/17 @ 10:11 by Alesha Mead) Carotid stenosis (Chronic) Hypothyroidism (Chronic) Hyperlipidemia (Chronic) Hypertension (Chronic) Hospital Course and Treatment Imaging Results: Clinical Impression(s) from Imaging Studies Chest X-Ray 07/07/17 11:17 IMPRESSION: Old left sixth rib fracture. Increased density within the left upper lobe which may represent a focal infiltrate and/or mass. Recommend follow-up CT scan of the chest. No definitive evidence of an acute fracture. Electronically Signed: Danna Santoro MD at 12:33 EDT Tel , Service support , Hip/Pelvis X-Ray 07/07/17 11:18 IMPRESSION: Comminuted left intertrochanteric fracture Electronically Signed: Omar Washburn MD at 12:17 EDT Tel , Service support , Hip X-Ray 07/08/17 11:00 IMPRESSION: Fixation left intertrochanteric fracture Electronically Signed: Omar Washburn MD at 12:50 EDT Tel , Service support , Renal Ultrasound 07/09/17 05:55 IMPRESSION: Right renal cortical thinning. This is suggestive of underlying chronic medical renal disease. Minimal left renal cortical thinning. Mild thickening of the bladder wall measuring 6.3 mm. Could consider cystitis in the appropriate clinical setting. No evidence of hydronephrosis. Electronically Signed: Danna Santoro MD at 23:27 EDT Tel , Service support , Dyllan Cain Operations: - - Left hip open reduction internal fixation, intramedullary nail fixation, locked Summary of Care Provided: The patient is a 77 year old FWho fell at home and sustained a left comminuted hip fracture. Patient was taken to the OR and had ORIF on the by Dr. Cain. Patient's course was complicated by some confusion that occurred shortly after [place]. Patient's confusion subsequently resolved. Patient was evaluated and accepted for inpatient rehab and will be discharged there today. [ ] 1. Left intertrochanteric fracture * s/p ORIF with intramedullary nail. POD #1 * mgmt per ortho 2. Confusion: * noted by * pt with some perseverating (on foot pain) * suspect multifactorial (pt had norco at 0558), lack of sleep amongst others * I do not advise stopping narcotics at this time given her fracture and surgery , but may have to if symptoms persists or worsens 3. Depression: * resume effexor 4. DVT proph: per orth. on Xarelto Physical Exam: Vital Signs Height 1.57 m Weight: 61.3 kg Weight in Pounds 135.1 lbs Pulse Ox 94 Temperature 36.7 C Pulse Rate 82 Respiratory Rate 16 Blood Pressure 99/66 Blood Pressure Position Sitting NAD. Afebrile. Alert. Nontoxic. Discharge Diet: No Restrictions Discharge Activity: Return to Normal Activity, May not drive while taking narcotic pain medications. Weight Bearing Status: Weight bearing as tolerated Keep extremity elevated above heart level: Left Leg Call your doctor if your incision/area has: Continuous Slow Oozing, Sudden Increased Bleeding, Increased Pain/ Swelling, Increased Redness, Foul Smelling Discharge, Swelling at the incision site Call your doctor if you observe: Fever of 101 or Higher Home Medications: Medications to take at Discharge Acetaminophen [Tylenol Arthritis] 650 mg PO 4X/DAY PRN PRN 10/05/15 Aspirin E.C. [Ecotrin] 81 mg PO QHS 10/05/15 Levothyroxine [Synthroid] 25 mcg PO DAILY 10/05/15 Lisinopril [Zestril] 20 mg PO QHS 10/05/15 Milk Thistle 525 mg PO DAILY 10/05/15 Multivitamins,Therapeutic [Multivitamin] 1 tab PO DAILY 10/05/15 [place]-3 Fatty Acids/Fish Oil [Fish Oil 1,000 mg Capsule] 360 mg PO DAILY Pitavastatin Calcium [Livalo] 4 mg PO QHS 10/05/15 Ubidecarenone/Vit E Acetate [Co Q-10 100 mg Softgel] 100 mg PO DAILY 10/05/15 Venlafaxine HCl [Effexor] 75 mg PO QHS 10/05/15 cholecalciferol (vitamin D3) 1,000 unit tablet 2,000 unit PO BID tab 06/06/17 gabapentin 300 mg capsule 300 mg PO QHS cap 06/08/17 Fexofenadine HCl 180 mg PO DAILY 07/07/17 Vitamin B Complex/Folic Acid [Super B Maxi Complex Caplet] 1 tab PO DAILY Mag Hydrox/Al Hydrox/Simeth [Mylanta II] 30 ml PO Q6H PRN PRN udc 07/10/17 Magnesium Hydroxide [Milk Of Magnesia] 30 ml PO DAILY PRN PRN udc 07/10/17 Primary Care Physician: Melisa Lucero DO [Primary Care Provider] - Within 2 Weeks Please Follow Up With: Dyllan Cain MD When: 2 weeks Disposition: Inpt Rehab Unit/Facility Minutes spent on discharge:: 32 Patient Condition:: Fair Medical Necessity - Tobacco Use Smoking Status: Never smoker Meaningful Use Info Meaningful Use Diagnoses (Choose all that apply): None applicable Code Visit Inpatient E&M: 06886 Disch Hosp
--- NOTE | 2017-07-10 13:21 | PCM.PN.ORT ---
Patient Problems: Active and Suspected Problems (Last Reviewed 06/08/17 @ 10:11 by Alesha Mead) Closed comminuted fracture of left hip (Acute) Subjective: Patient is resting comfortably in chair at bedside during exam. No adverse events overnight. Her plan is for discharge to fourth floor rehab. She has pain in the left hip with pain medicines are helping. Physical therapy has been going well. Denies chest pain, shortness of breath, dizziness, calf pain. Doing well overall. Objective: Patient is alert and oriented ?3. No acute distress at rest. Breathing easily without respiratory distress. Inspection of left hip reveals a dressing that is clean, dry, intact. Negative [place] bilaterally. Without signs of DVT. Sensation intact light touch bilateral lower extremities. Pedal pulses present and equal bilaterally. Patient is neurovascularly intact. Patient is able to actively plantar and dorsiflex bilateral feet against resistance. - Physical Exam Vital Signs Temp Pulse Resp BP Pulse Ox 98.0 F 82 16 99/66 94 07/10/17 08:20 07/10/17 08:20 07/10/17 08:20 07/10/17 08:20 07/10/17 08:20 Oxygen Flow Rate (L/min) 1 Oxygen Delivery Method Nasal Cannula Weight: 61.3 kg Body Mass Index (BMI) 24.7 Intake and Output for Last 24 Hours 07/08/17 07/09/17 07/10/17 23:59 23:59 23:59 Intake Total 4989 / 4989 4213 / 4213 892 / 892 Output Total 2094 / 5 1974 / 1974 350 / 350 Balance 2894 / 2894 2238 / 2238 542 / 542 Laboratory Tests Past 24 Hrs 07/10/17 07/10/17 05:36 05:36 WBC 9.1 RBC 2.60 L Hgb 8.0 L Hct 24.4 L MCV 93.8 MCH 30.8 MCHC 32.8 RDW 12.7 RDW Differential 42.4 Plt Count 193 MPV 10.1 Immature Gran % (Auto) 0.200 Neut % (Auto) 69.7 Lymph % (Auto) 12.8 L [place] % (Auto) 13.9 H Eos % (Auto) 3.1 Baso % (Auto) 0.3 Absolute Neuts (auto) 6.3 Absolute Lymphs (auto) 1.16 Total Counted Not Reportable Sodium 133 L Potassium 4.6 Chloride 102 Carbon Dioxide 22.0 Anion Gap 9 BUN 12 Creatinine 0.87 Estim Creat Clear Calc 44.19 Est GFR (MDRD) Af Amer 82 Est GFR (MDRD) Non-Af 67 BUN/Creatinine Ratio 13.8 Glucose 132 H Calcium 7.2 L Medical Necessity - Tobacco Use Smoking Status: Never smoker Assessment/Plan Active and Suspected Problems (Last Reviewed 06/08/17 @ 10:11 by Alesha Mead) Closed comminuted fracture of left hip (Acute) 1. Status post ORIF left hip; postop day #2 2. Continue pain medications as prescribed as needed. 3. DVT prophylaxis; bilateral teds, SCDs and Xarelto therapy 4. Continue PT/OT; partial weightbearing left lower extremity with a walker 5. Drop in hemoglobin/hematocrit; asymptomatic, without indication for transfusion 6. Encourage incentive spirometry 7. Continue postoperative medical management per hospitalist 8. Patient is orthopedically stable and okay for discharge to fourth floor rehab when she is cleared medically. Recommend follow-up with [facility] orthopedic 10-14 days postoperative with x-rays.
[2017-07-10] MEDS: Acetaminophen 325 MG Tablet 650 MG PO (14:47)
== END 2017-07-10 16:41 | DRG 481 ==
LOC: ED 12:22 → MS3 13:39
PROVIDERS: Anesthesiology; Orthopaedic Surgery; Admitting Provider Hospitalist; Emergency Provider Emergency Medicine; Family Provider Internal Medicine; PCP Internal Medicine
PROC: 0QS706Z Reposition Left Upper Femur with Intramedullary Internal Fixation Device, Open Approach (ICD-10-PCS; CPT 27245; principal; 2017-07-08 09:00)
DX: S72.142A Displaced intertrochanteric fracture of left femur, initial encounter for closed fracture (principal); R71.0 Precipitous drop in hematocrit; W01.0XXA Fall on same level from slipping, tripping and stumbling without subsequent striking against object, initial encounter; Y93.01 Activity, walking, marching and hiking; Y92.89 Other specified places as the place of occurrence of the external cause; Y99.8 Other external cause status; I10 Essential (primary) hypertension; R41.0 Disorientation, unspecified; M17.0 Bilateral primary osteoarthritis of knee; M16.7 Other unilateral secondary osteoarthritis of hip; I65.23 Occlusion and stenosis of bilateral carotid arteries; E03.9 Hypothyroidism, unspecified; E78.5 Hyperlipidemia, unspecified; M81.0 Age-related osteoporosis without current pathological fracture; F32.9 Major depressive disorder, single episode, unspecified; Z79.82 Long term (current) use of aspirin; Z79.899 Other long term (current) drug therapy
CPT/HCPCS: 36415; 70498; 71045; 73502; 76000; 76770; 80048; 84443; 84484; 85025; 85610; 85730; 86850; 86900; 93005; 97162; 97165; 97530; 99283; C1713; J7030; J7120; Q9967; A4216; J2405; J7799

== ENCOUNTER 2017-07-10 16:56 | Inpatient (IN) | payer MEDICARE, OTHER, SELFPAY ==
--- NOTE | 2017-07-10 16:56 | DT_ITS ---
This patient was seen during an EMR downtime July 16, 2017 - July 23, 2017. This patient may have a combination of paper and electronic documentation or all paper documentation. All documentation is viewable within the e-chart portion of [employer] for each patient visit.
[2017-07-10 17:14] VITALS: BP 141/61; PULSE 69; RESP 17; TEMP 36.8; O2SAT 95; BMI 26.4
--- NOTE | 2017-07-10 17:30 | NURSING ---
Patient and aware she is a fall risk and must ask for staff assist. Verbalized understanding.
[2017-07-10 19:54] VITALS: BMI 26.4
[2017-07-10] MEDS: HYDROcodone Bitartrate/Apap 5/325 Tablet PO (20:51)
[2017-07-10] MEDS: Aspirin E.C. 81 MG Tablet PO (20:54)
[2017-07-10] MEDS: Atorvastatin Calcium 20 MG Tablet PO (20:54)
[2017-07-10] MEDS: Gabapentin 300 MG Capsule PO (20:54)
[2017-07-10] MEDS: Lisinopril 20 MG Tablet PO (20:55)
[2017-07-10 20:59] VITALS: BP 132/60; PULSE 75; RESP 18; TEMP 36.8; O2SAT 96
[2017-07-10] MEDS: Senna/Docusate Sodium 1 Tablet 2 TABLET PO (21:04)
[2017-07-10] MEDS: Venlafaxine XR 75 MG Capsule PO (21:04)
[2017-07-10 23:15] VITALS: O2SAT 96
[2017-07-11] MEDS: Levothyroxine 25 MCG TABLET PO (05:24)
[2017-07-11] MEDS: Rivaroxaban 10 MG Tablet PO (05:24)
[2017-07-11] MEDS: HYDROcodone Bitartrate/Apap 5/325 Tablet PO ×2 (05:45→13:23)
[2017-07-11 06:02] LABS: Hematocrit 24.6 % (37-47); Hemoglobin 8.1 g/dl (12.0-15.0); Mean Corp Hgb Conc 32.9 g/gl (32-36); Mean Corpuscular Hgb 29.6 pg (27.0-32.0); Mean Corpuscular Volume 89.8 fL (81-99); Mean Platelet Vol. 9.7 fl (6.2-12.0); Platelet Count 270 K/mm3 (150-450); RBC Distribution Width CV 13.2 % (11.6-14.6); RBC Distribution Width SD 42.7 fl (35.1-43.9); Red Blood Count 2.74 M/mm3 (4.2-5.4); White Blood Count 14.1 K/mm3 (4.4-11.0)
[2017-07-11 06:11] LABS: Scan Indicated on CBC? Y/N NO
[2017-07-11 06:37] LABS: ALB/GLOB Ratio 0.8 RATIO (0.9-2.4); AST(SGOT) 42 U/L (15-37); Alanine Aminotransfer ALT/SGPT 34 U/L (13-56); Albumin, Serum 2.8 g/dL (3.2-5.0); Alkaline Phosphatase 100 U/L (45-117); Anion Gap 14 (5-15); BUN 14 mg/dL (7-18); BUN/Creat Ratio 14.1 RATIO (10-20); Calcium,Total 7.8 mg/dL (8.5-10.1); Chloride 100 mmol/L (98-107); EST Glomerular Filtration Rate 58 mL/min (>60); Est Glom Filt Rate - Afr Amer 70 mL/min (>60); Estimated Creatinine Clearance 34.91 ml/min; Globulin 3.5 g/dL (2.2-4.2); Glucose 134 mg/dL (74-106); Magnesium 2.1 mg/dL (1.6-2.6); Phosphorus 1.8 mg/dL (2.5-4.9); Potassium 4.6 mmol/L (3.5-5.1); Protein, Total 6.3 g/dL (6.4-8.2); Sodium Level 132 mmol/L (136-145)
[2017-07-11 07:05] VITALS: O2SAT 96
[2017-07-11] MEDS: Vitamin B Comp W-C Capsule 1 CAP PO (08:19)
[2017-07-11] MEDS: Loratadine 10 MG Tablet PO (08:19)
[2017-07-11] MEDS: Senna/Docusate Sodium 1 Tablet 2 TABLET PO ×2 (08:19→21:44)
[2017-07-11 08:30] VITALS: PULSE 80; RESP 17; TEMP 36.7; O2SAT 86
--- NOTE | 2017-07-11 08:52 | NURSING ---
Straight Cath for UA C&S per Dr. Mott's order due to patient complaint of hematuria, frequency, burning, and wbc elevated today. Afebrile. Will monitor and encourage fluids.
[2017-07-11 08:56] LABS: Mucous, Urine 0 SEEN /hpf (<or=2+); Squamous Epithelial Cells - UA 0 SEEN /hpf (5-10)
[2017-07-11 09:05] LABS: Color, Urine Yellow (Yellow); Glucose, Dipstick Normal (Normal); Ketone-Dipstick Negative (Negative); Leukocyte Esterase-Dipstick 500 /ul (Negative); Nitrite-Dipstick Negative (Negative); Occult Blood-Urine 250 /ul (Negative); Protein-Dipstick 100 mg/dl (Negative); Specific Gravity, Urine 1.015 (1.002-1.030); Urine Bilirubin Dipstick Negative (Negative); Urine Clarity Cloudy (Clear); Urine Urobilinogen Normal (Normal)
[2017-07-11 09:27] LABS: Bacteria 1+ /hpf (None Seen); Red Blood Cells-Urine 10-25 SEEN /hpf (0-5); White Blood Cells >100 SEEN /hpf (0-5)
[2017-07-11 09:45] VITALS: BP 102/51
[2017-07-11] MEDS: Iron Polysaccharide Complex 150 MG CAPSULE PO (09:52)
--- NOTE | 2017-07-11 10:12 | PCM.HP.COS ---
<Lyric Garcia - Last Filed: 07/11/17 10:49> History of Present Illness Date of Admission: 07/10/17 Chief Complaint: Left Hip Fracture The patient is a 77 year old right handed Female, who is admitted to the acute rehab unit for rehabilitation after a mechanical fall outside her home, sustaining a left comminuted hip fracture. The patient was taken to the OR and had ORIF on the by Dr. Cain. Patient's course was complicated by some confusion that occurred shortly after administration of [place] for pain. Her confusion has since resolved and she is back at baseline. She had recent work-up for anticipated Left knee surgery in October. A 2D-echocardiogram was done on 06/18/17, which showed a preserved LV function and mild MR, trivial TR, and mitral and aortic root calcification. A CTA of her neck showed stable 50% bilateral Internal carotid artery stenosis. She lives with her in a single story home with two steps to get into the interior. She was completely functional able to do her own ADLs, and is admitted to the rehab unit in order to restore her to her previous level of functional independence. Past Medical History Past Medical History (Chronic Problems): Chronic Problems (Last Reviewed 06/08/17 @ 10:11 by Alesha Mead) Carotid stenosis (Chronic) Hypothyroidism (Chronic) Hyperlipidemia (Chronic) Hypertension (Chronic) Allergies ceftriaxone [From Rocephin] Allergy (Verified 07/07/17 11:10) Hives Penicillins Allergy (Verified 07/07/17 11:10) Hives Sulfa (Sulfonamide Antibiotics) Allergy (Verified 07/07/17 11:10) Hives vancomycin Allergy (Verified 07/07/17 11:10) Hives ATE CASSIE SYNDROME tramadol Adverse Reaction (Verified 07/09/17 09:27) Nausea sweating, heart racing, AGITATION Home Medications: Ambulatory Orders Medication Instructions Recorded Aspirin E.C. [Ecotrin] 81 mg PO QHS 10/05/15 Levothyroxine [Synthroid] 25 mcg PO DAILY 10/05/15 Lisinopril [Zestril] 20 mg PO QHS 10/05/15 Milk Thistle 525 mg PO DAILY 10/05/15 Multivitamins,Therapeutic 1 tab PO DAILY 10/05/15 [Multivitamin] [place]-3 Fatty Acids/Fish Oil [Fish 360 mg PO DAILY 10/05/15 Oil 1,000 mg Capsule] Pitavastatin Calcium [Livalo] 4 mg PO QHS 10/05/15 Ubidecarenone/Vit E Acetate [Co 100 mg PO DAILY 10/05/15 Q-10 100 mg Softgel] Venlafaxine HCl [Effexor] 75 mg PO QHS 10/05/15 cholecalciferol (vitamin D3) 1,000 2,000 unit PO BID tab 06/06/17 unit tablet gabapentin 300 mg capsule 300 mg PO QHS cap 06/08/17 Fexofenadine HCl 180 mg PO DAILY 07/07/17 Vitamin B Complex/Folic Acid 1 tab PO DAILY 07/07/17 [Super B Maxi Complex Caplet] Mag Hydrox/Al Hydrox/Simeth 30 ml PO Q6H PRN PRN udc 07/10/17 [Mylanta II] Magnesium Hydroxide [Milk Of 30 ml PO DAILY PRN PRN udc 07/10/17 Magnesia] Surgical History: arthroscopy, knee - Right x 2, cataract, - - Breast reduction, Right Carpal Tunnel surgery, and right foot surgery. Lives: Spouse/ Significant Other Smoking Status: Never smoker Tobacco Use: Non-smoker Alcohol: Occasional Drugs: None - *Family History Maternal History Items: - - Unremarkable for CV probems in immediate families. Review of Systems Constitutional: Denies: Chills, Fever, Weight Change HEENT: Denies: Head Aches, Sinus Congestion, Sinus Drainage Cardiovascular: Denies: Chest Pain, Palpitations Respiratory: Denies: Cough, Shortness of breath at rest, Sputum production Gastrointestinal: Denies: Abdominal Pain, Nausea, Vomiting Genitourinary: Denies: Dysuria Musculoskeletal: Denies: Joint Pain, Joint Tenderness Skin: Denies: Rash, Wounds Neurological: Denies: Numbness, Tingling, Focal weakness Psychiatric: Denies: Anxiety, Depression, Homicidal Ideations, Suicidal Ideations Hematologic/ Lymphatic: Denies: Easy Bruising, Easy Bleeding VTE Information - Inpt Only VTE Present on Admission: No VTE Mechan Device Prophylaxis: SCD's, Knee High THONG Hose VTE Pharm Prophylaxis ordered?: Yes - Physical Exam General: Alert, Oriented x3, Cooperative HEENT: Atraumatic, PERRLA, EOMI, Normocephalic Neck: Supple, No JVD, Negative Carotid Bruits Lungs: Clear to auscultation, Normal air movement Cardiovascular: Regular rate, No murmurs Abdomen: Bowel Sounds Present, Soft, Non Tender Extremities: No edema, Capillary Refill Less than 3 Seconds, - - Touch down weight bearing left Skin: No rashes, No breakdown Musculoskeletal: No Tenderness to Palpation of Joints or Extremities Neurological: Cranial nerves II-XII grossly intact Psych/Mental Status: Normal Affect, Appropriate, Alert and oriented to time, place, person, mood and affect Vital Signs Temp Pulse Resp BP Pulse Ox 98.0 F 80 17 102/51 L 86 07/11/17 08:30 07/11/17 08:30 07/11/17 08:30 07/11/17 09:45 07/11/17 08:30 Oxygen Flow Rate (L/min) 1.5 Oxygen Delivery Method Room Air Weight: 65.9 kg Body Mass Index (BMI) 26.4 Intake and Output for Last 24 Hours 07/09/17 07/10/17 07/11/17 23:59 23:59 23:59 Intake Total 220 / 220 220 / 220 Output Total 750 / 750 225 / 225 Balance -530 / -530 -5 / -5 Laboratory Tests Past 24 Hrs 07/11/17 07/11/17 07/11/17 05:15 05:15 08:40 WBC 14.1 H RBC 2.74 L Hgb 8.1 L Hct 24.6 L MCV 89.8 MCH 29.6 MCHC 32.9 RDW 13.2 RDW Differential 42.7 Plt Count 270 MPV 9.7 Sodium 132 L Potassium 4.6 Chloride 100 Carbon Dioxide 18.0 L Anion Gap 14 BUN 14 Creatinine 1.00 Estim Creat Clear Calc 34.91 Est GFR (MDRD) Af Amer 70 Est GFR (MDRD) Non-Af 58 L BUN/Creatinine Ratio 14.1 Glucose 134 H Calcium 7.8 L Phosphorus 1.8 L Magnesium 2.1 Total Bilirubin 0.70 AST 42 H ALT 34 Alkaline Phosphatase 100 Total Protein 6.3 L Albumin 2.8 L Globulin 3.5 Albumin/Globulin Ratio 0.8 L Urine Color Yellow Urine Clarity Cloudy Urine pH 6.0 Ur Specific [place] 1.015 Urine Protein 100 H Urine Glucose (UA) Normal Urine Ketones Negative Urine Occult Blood 250 H Urine Nitrite Negative Urine Bilirubin Negative Urine Urobilinogen Normal Ur Leukocyte Esterase 500 H Urine RBC 10-25 SEEN Urine WBC >100 SEEN Ur Squamous Epith Cells 0 SEEN Urine Bacteria 1+ Urine Mucus 0 SEEN Active Medications Acetaminophen (Tylenol) 650 mg PO Q6H PRN PRN PRN Reason: Mild Pain (0-3/10)/Headache Hydrocodone Bitart/Acetaminophen ([place] 5mg-325mg) 1 - 2 tablet PO Q6H PRN PRN PRN Reason: MOD-SEVERE PAIN (4-10/10) Last Admin: 07/11/17 05:45 Dose: 2 tablet Al Hydroxide/Mg Hydroxide (Mylanta Ii) 30 ml PO Q6H PRN PRN PRN Reason: Gastric burning Aspirin (Ecotrin) 81 mg PO QHS [facility] Last Admin: 07/10/17 20:54 Dose: 81 mg Atorvastatin [facility]) [facility] Last Admin: 07/10/17 20:54 Dose: 20 mg Bisacodyl (Dulcolax) 10 mg RECTAL .PRN X 1 PRN PRN Reason: Constipation Calcium Carbonate (Os-Rao 500) [facility] Cholecalciferol (Vitamin D) 2,000 unit PO BID [facility] Last Admin: 07/11/17 08:19 Dose: 2,000 unit Ciprofloxacin HCl (Cipro) 500 mg PO BID [facility] Stop: 07/17/17 22:01 Fentanyl (Duragesic Patch) 12 mcg TRANSDERM. Q3D [facility] Last Admin: 07/10/17 19:46 Dose: 12 mcg Gabapentin (Neurontin) [facility] Last Admin: 07/10/17 20:54 Dose: 300 mg Levothyroxine Sodium (Synthroid) 25 mcg PO DAILY@0600 [facility] Last Admin: 07/11/17 05:24 Dose: 25 mcg Lisinopril (Zestril) 20 mg PO QHS [facility] Last Admin: 07/10/17 20:55 Dose: 20 mg Loratadine (Claritin) 10 mg PO DAILY [facility] Last Admin: 07/11/17 08:19 Dose: 10 mg Magnesium Hydroxide (Milk Of Magnesia) 30 ml PO DAILY PRN PRN PRN Reason: Constipation Magnesium Hydroxide (Milk Of Magnesia) 30 ml PO .PRN X 1 PRN PRN Reason: Constipation Multivitamins (Multivitamin) 1 tablet PO DAILY@1200 [facility] Multivitamins (Allbee W/C Caplet, Thera B Comp/C) 1 capsule PO DAILY@0800 [facility] Last Admin: 07/11/17 08:19 Dose: 1 capsule Polysaccharide Iron Complex (Ferrex 150) 150 mg PO DAILY [facility] Last Admin: 07/11/17 09:52 Dose: 150 mg Rivaroxaban (Xarelto) 10 mg PO DAILY@0600 [facility] Last Admin: 07/11/17 05:24 Dose: 10 mg Senna/Docusate Sodium (Senokot-S, Leighann-Colace) 2 tablet PO BID [facility] Last Admin: 07/11/17 08:19 Dose: 2 tablet Venlafaxine HCl (Effexor Xr) 75 mg PO QHS [facility] Last Admin: 07/10/17 21:04 Dose: 75 mg Assessment/Plan Debility s/p left ORIF with intramedullary nail. Goal of rehab is lutheran of functional independence. Plan: - Physical therapy for gait and balance - Occupational Therapy for ADLs - As needed analgesics - Bowel protocol - s/p Left ORIF with intramedullary nail - Incision site is C/D/I, timothy intact, continue polar care - DVT prophylaxis; bilateral Thong Hoses, SCDs and Xarelto therapy - Weight bearing status; partial weightbearing left lower extremity with a walker - Acute Anemia 2/2 blood loss during surgery; asymptomatic, without indication for transfusion, started Ferrex - Hx Hypothyroidism, continue Synthroid - Hypertension - Continue home medication - HPL continue home medication - Hx Depression, continue Effexor - Will follow-up with [facility] orthopedic in 10-14 days postoperative with x-rays. - Possible UTI - UA, and Culture sent, UA has Leukocyte and +1 bacteria = started on Cipro 500mg BID x 7 days - Left upper lung lobe - increased density, may represent a focal infiltrate and/or mass = replete CXR on Sunday <Brenden Mckeon - Last Filed: 07/11/17 11:22> History of Present Illness The patient is a 77 year old F [] Past Medical History Allergies ceftriaxone [From Rocephin] Allergy (Verified 07/07/17 11:10) Hives Penicillins Allergy (Verified 07/07/17 11:10) Hives Sulfa (Sulfonamide Antibiotics) Allergy (Verified 07/07/17 11:10) Hives vancomycin Allergy (Verified 07/07/17 11:10) Hives TAE CASSIE SYNDROME tramadol Adverse Reaction (Verified 07/09/17 09:27) Nausea sweating, heart racing, AGITATION - Physical Exam Vital Signs Temp Pulse Resp BP Pulse Ox 36.7 C 80 17 102/51 L 86 07/11/17 08:30 07/11/17 08:30 07/11/17 08:30 07/11/17 09:45 07/11/17 08:30 Oxygen Flow Rate (L/min) 1.5 Oxygen Delivery Method Room Air Weight: 65.9 kg Body Mass Index (BMI) 26.4 Intake and Output for Last 24 Hours 07/09/17 07/10/17 07/11/17 23:59 23:59 23:59 Intake Total 220 / 220 220 / 220 Output Total 750 / 750 225 / 225 Balance -530 / -530 -5 / -5 Laboratory Tests Past 24 Hrs 07/11/17 07/11/17 07/11/17 05:15 05:15 08:40 WBC 14.1 H RBC 2.74 L Hgb 8.1 L Hct 24.6 L MCV 89.8 MCH 29.6 MCHC 32.9 RDW 13.2 RDW Differential 42.7 Plt Count 270 MPV 9.7 Sodium 132 L Potassium 4.6 Chloride 100 Carbon Dioxide 18.0 L Anion Gap 14 BUN 14 Creatinine 1.00 Estim Creat Clear Calc 34.91 Est GFR (MDRD) Af Amer 70 Est GFR (MDRD) Non-Af 58 L BUN/Creatinine Ratio 14.1 Glucose 134 H Calcium 7.8 L Phosphorus 1.8 L Magnesium 2.1 Total Bilirubin 0.70 AST 42 H ALT 34 Alkaline Phosphatase 100 Total Protein 6.3 L Albumin 2.8 L Globulin 3.5 Albumin/Globulin Ratio 0.8 L Urine Color Yellow Urine Clarity Cloudy Urine pH 6.0 Ur Specific [place] 1.015 Urine Protein 100 H Urine Glucose (UA) Normal Urine Ketones Negative Urine Occult Blood 250 H Urine Nitrite Negative Urine Bilirubin Negative Urine Urobilinogen Normal Ur Leukocyte Esterase 500 H Urine RBC 10-25 SEEN Urine WBC >100 SEEN Ur Squamous Epith Cells 0 SEEN Urine Bacteria 1+ Urine Mucus 0 SEEN
--- NOTE | 2017-07-11 10:22 | HP.PCM.COS_ITS ---
Addendum entered and electronically signed by Brenden Mckeon MD 07/11/17 11: 25: Code Visit Agree with nurse practitioner notes and plan as above. Patient interviewed and examined. She lives at home with her in a one-story house with 2 steps up. She fell for mechanical reasons. Goal of rehab is holiness of prior level functional independence. This morning in the rehab unit she did experience some lightheadedness, diaphoresis and nausea. This was after she took an iron pill but her blood pressure is noted to be 105 systolic and her hemoglobin is 8.1 which is improved. Will discontinue the iron pill, give her 1 L of IV fluids and will treat her constipation. [place]ors as above. Original Note: <Lyric Garcia - Last Filed: 07/11/17 10:49> History of Present Illness Date of Admission: 07/10/17 Chief Complaint: Left Hip Fracture The patient is a 77 year old right handed Female, who is admitted to the acute rehab unit for rehabilitation after a mechanical fall outside her home, sustaining a left comminuted hip fracture. The patient was taken to the OR and had ORIF on the by Dr. Cain. Patient's course was complicated by some confusion that occurred shortly after administration of [place] for pain. Her confusion has since resolved and she is back at baseline. She had recent work- up for anticipated Left knee surgery in October. A 2D-echocardiogram was done on 06/18/17, which showed a preserved LV function and mild MR, trivial TR, and mitral and aortic root calcification. A CTA of her neck showed stable 50% bilateral Internal carotid artery stenosis. She lives with her in a single story home with two steps to get into the interior. She was completely functional able to do her own ADLs, and is admitted to the rehab unit in order to restore her to her previous level of functional independence. Past Medical History Past Medical History (Chronic Problems): Chronic Problems (Last Reviewed 06/08/17 @ 10:11 by Alesha Mead) Carotid stenosis (Chronic) Hypothyroidism (Chronic) Hyperlipidemia (Chronic) Hypertension (Chronic) Allergies ceftriaxone [From Rocephin] Allergy (Verified 07/07/17 11:10) Hives Penicillins Allergy (Verified 07/07/17 11:10) Hives Sulfa (Sulfonamide Antibiotics) Allergy (Verified 07/07/17 11:10) Hives vancomycin Allergy (Verified 07/07/17 11:10) Hives TAE CASSIE SYNDROME tramadol Adverse Reaction (Verified 07/09/17 09:27) Nausea sweating, heart racing, AGITATION Home Medications: Ambulatory Orders Medication Instructions Recorded Aspirin E.C. [Ecotrin] 81 mg PO QHS 10/05/15 Levothyroxine [Synthroid] 25 mcg PO DAILY 10/05/15 Lisinopril [Zestril] 20 mg PO QHS 10/05/15 Milk Thistle 525 mg PO DAILY 10/05/15 Multivitamins,Therapeutic 1 tab PO DAILY 10/05/15 [Multivitamin] [place]-3 Fatty Acids/Fish Oil [Fish 360 mg PO DAILY 10/05/15 Oil 1,000 mg Capsule] Pitavastatin Calcium [Livalo] 4 mg PO QHS 10/05/15 Ubidecarenone/Vit E Acetate [Co 100 mg PO DAILY 10/05/15 Q-10 100 mg Softgel] Venlafaxine HCl [Effexor] 75 mg PO QHS 10/05/15 cholecalciferol (vitamin D3) 1,000 2,000 unit PO BID tab 06/06/17 unit tablet gabapentin 300 mg capsule 300 mg PO QHS cap 06/08/17 Fexofenadine HCl 180 mg PO DAILY 07/07/17 Vitamin B Complex/Folic Acid 1 tab PO DAILY 07/07/17 [Super B Maxi Complex Caplet] Mag Hydrox/Al Hydrox/Simeth 30 ml PO Q6H PRN PRN udc 07/10/17 [Mylanta II] Magnesium Hydroxide [Milk Of 30 ml PO DAILY PRN PRN [facility] 07/10/17 Magnesia] Surgical History: arthroscopy, knee - Right x 2, cataract, - - Breast reduction , Right Carpal Tunnel surgery, and right foot surgery. Lives: Spouse/ Significant Other Smoking Status: Never smoker Tobacco Use: Non-smoker Alcohol: Occasional Drugs: None - *Family History Maternal History Items: - - Unremarkable for CV probems in immediate families. Review of Systems Constitutional: Denies: Chills, Fever, Weight Change HEENT: Denies: Head Aches, Sinus Congestion, Sinus Drainage Cardiovascular: Denies: Chest Pain, Palpitations Respiratory: Denies: Cough, Shortness of breath at rest, Sputum production Gastrointestinal: Denies: Abdominal Pain, Nausea, Vomiting Genitourinary: Denies: Dysuria Musculoskeletal: Denies: Joint Pain, Joint Tenderness Skin: Denies: Rash, Wounds Neurological: Denies: Numbness, Tingling, Focal weakness Psychiatric: Denies: Anxiety, Depression, Homicidal Ideations, Suicidal Ideations Hematologic/ Lymphatic: Denies: Easy Bruising, Easy Bleeding VTE Information - Inpt Only VTE Present on Admission: No VTE Mechan Device Prophylaxis: SCD's, Knee High THONG Hose VTE Pharm Prophylaxis ordered?: Yes - Physical Exam General: Alert, Oriented x3, Cooperative HEENT: Atraumatic, PERRLA, EOMI, Normocephalic Neck: Supple, No JVD, Negative Carotid Bruits Lungs: Clear to auscultation, Normal air movement Cardiovascular: Regular rate, No murmurs Abdomen: Bowel Sounds Present, Soft, Non Tender Extremities: No edema, Capillary Refill Less than 3 Seconds, - - Touch down weight bearing left Skin: No rashes, No breakdown Musculoskeletal: No Tenderness to Palpation of Joints or Extremities Neurological: Cranial nerves II-XII grossly intact Psych/Mental Status: Normal Affect, Appropriate, Alert and oriented to time, place, person, mood and affect Vital Signs Temp Pulse Resp BP Pulse Ox 98.0 F 80 17 102/51 L 86 07/11/17 08:30 07/11/17 08:30 07/11/17 08:30 07/11/17 09:45 07/11/17 08:30 Oxygen Flow Rate (L/min) 1.5 Oxygen Delivery Method Room Air Weight: 65.9 kg Body Mass Index (BMI) 26.4 Intake and Output for Last 24 Hours 07/09/17 07/10/17 07/11/17 23:59 23:59 23:59 Intake Total 220 / 220 220 / 220 Output Total 750 / 750 225 / 225 Balance -530 / -530 -5 / -5 Laboratory Tests Past 24 Hrs 07/11/17 07/11/17 07/11/17 05:15 05:15 08:40 WBC 14.1 H RBC 2.74 L Hgb 8.1 L Hct 24.6 L MCV 89.8 MCH 29.6 MCHC 32.9 RDW 13.2 RDW Differential 42.7 Plt Count 270 MPV 9.7 Sodium 132 L Potassium 4.6 Chloride 100 Carbon Dioxide 18.0 L Anion Gap 14 BUN 14 Creatinine 1.00 Estim Creat Clear Calc 34.91 Est GFR (MDRD) Af Amer 70 Est GFR (MDRD) Non-Af 58 L BUN/Creatinine Ratio 14.1 Glucose 134 H Calcium 7.8 L Phosphorus 1.8 L Magnesium 2.1 Total Bilirubin 0.70 AST 42 H ALT 34 Alkaline Phosphatase 100 Total Protein 6.3 L Albumin 2.8 L Globulin 3.5 Albumin/Globulin Ratio 0.8 L Urine Color Yellow Urine Clarity Cloudy Urine pH 6.0 Ur Specific [place] 1.015 Urine Protein 100 H Urine Glucose (UA) Normal Urine Ketones Negative Urine Occult Blood 250 H Urine Nitrite Negative Urine Bilirubin Negative Urine Urobilinogen Normal Ur Leukocyte Esterase 500 H Urine RBC 10-25 SEEN Urine WBC >100 SEEN Ur Squamous Epith Cells 0 SEEN Urine Bacteria 1+ Urine Mucus 0 SEEN Active Medications Acetaminophen (Tylenol) 650 mg PO Q6H PRN PRN PRN Reason: Mild Pain (0-3/10)/Headache Hydrocodone Bitart/Acetaminophen ([place] 5mg-325mg) 1 - 2 tablet PO Q6H PRN PRN PRN Reason: MOD-SEVERE PAIN (4-10/10) Last Admin: 07/11/17 05:45 Dose: 2 tablet Al Hydroxide/Mg Hydroxide (Mylanta Ii) 30 ml PO Q6H PRN PRN PRN Reason: Gastric burning Aspirin (Ecotrin) 81 mg PO QHS [facility] Last Admin: 07/10/17 20:54 Dose: 81 mg Atorvastatin Cal[facility] ([facility]) [facility] Last Admin: 07/10/17 20:54 Dose: 20 mg Bisacodyl (Dulcolax) 10 mg RECTAL .PRN X 1 PRN PRN Reason: Constipation Calcium Carbonate (Os-Rao 500) [facility] Cholecalciferol (Vitamin D) 2,000 unit PO BID [facility] Last Admin: 07/11/17 08:19 Dose: 2,000 unit Ciprofloxacin HCl (Cipro) 500 mg PO BID [facility] Stop: 07/17/17 22:01 Fentanyl (Duragesic Patch) 12 mcg TRANSDERM. Q3D [facility] Last Admin: 07/10/17 19:46 Dose: 12 mcg Gabapentin (Neurontin) [facility] Last Admin: 07/10/17 20:54 Dose: 300 mg Levothyroxine Sodium (Synthroid) 25 mcg PO DAILY@0600 [facility] Last Admin: 07/11/17 05:24 Dose: 25 mcg Lisinopril (Zestril) 20 mg PO QHS [facility] Last Admin: 07/10/17 20:55 Dose: 20 mg Loratadine (Claritin) 10 mg PO DAILY [facility] Last Admin: 07/11/17 08:19 Dose: 10 mg Magnesium Hydroxide (Milk Of Magnesia) 30 ml PO DAILY PRN PRN PRN Reason: Constipation Magnesium Hydroxide (Milk Of Magnesia) 30 ml PO .PRN X 1 PRN PRN Reason: Constipation Multivitamins (Multivitamin) 1 tablet PO DAILY@1200 [facility] Multivitamins (Allbee W/C Caplet, Thera B Comp/C) 1 capsule PO DAILY@0800 [facility] Last Admin: 07/11/17 08:19 Dose: 1 capsule Polysaccharide Iron Complex (Ferrex 150) 150 mg PO DAILY [facility] Last Admin: 07/11/17 09:52 Dose: 150 mg Rivaroxaban (Xarelto) 10 mg PO DAILY@0600 [facility] Last Admin: 07/11/17 05:24 Dose: 10 mg Senna/Docusate Sodium (Senokot-S, Leighann-Colace) 2 tablet PO BID [facility] Last Admin: 07/11/17 08:19 Dose: 2 tablet Venlafaxine HCl (Effexor Xr) 75 mg PO QHS [facility] Last Admin: 07/10/17 21:04 Dose: 75 mg Assessment/Plan Debility s/p left ORIF with intramedullary nail. Goal of rehab is holiness of functional independence. Plan: - Physical therapy for gait and balance - Occupational Therapy for ADLs - As needed analgesics - Bowel protocol - s/p Left ORIF with intramedullary nail - Incision site is C/D/I, timothy intact, continue polar care - DVT prophylaxis; bilateral Thong Hoses, SCDs and Xarelto therapy - Weight bearing status; partial weightbearing left lower extremity with a walker - Acute Anemia 2/2 blood loss during surgery; asymptomatic, without indication for transfusion, started Ferrex - Hx Hypothyroidism, continue Synthroid - Hypertension - Continue home medication - HPL continue home medication - Hx Depression, continue Effexor - Will follow-up with [facility] orthopedic in 10-14 days postoperative with x-rays. - Possible UTI - UA, and Culture sent, UA has Leukocyte and +1 bacteria = started on Cipro 500mg BID x 7 days - Left upper lung lobe - increased density, may represent a focal infiltrate and /or mass = replete CXR on Sunday <Brenden Mckeon - Last Filed: 07/11/17 11:22> History of Present Illness The patient is a 77 year old F [] Past Medical History Allergies ceftriaxone [From Rocephin] Allergy (Verified 07/07/17 11:10) Hives Penicillins Allergy (Verified 07/07/17 11:10) Hives Sulfa (Sulfonamide Antibiotics) Allergy (Verified 07/07/17 11:10) Hives vancomycin Allergy (Verified 07/07/17 11:10) Hives TAE CASSIE SYNDROME tramadol Adverse Reaction (Verified 07/09/17 09:27) Nausea sweating, heart racing, AGITATION - Physical Exam Vital Signs Temp Pulse Resp BP Pulse Ox 36.7 C 80 17 102/51 L 86 07/11/17 08:30 07/11/17 08:30 07/11/17 08:30 07/11/17 09:45 07/11/17 08:30 Oxygen Flow Rate (L/min) 1.5 Oxygen Delivery Method Room Air Weight: 65.9 kg Body Mass Index (BMI) 26.4 Intake and Output for Last 24 Hours 07/09/17 07/10/17 07/11/17 23:59 23:59 23:59 Intake Total 220 / 220 220 / 220 Output Total 750 / 750 225 / 225 Balance -530 / -530 -5 / -5 Laboratory Tests Past 24 Hrs 07/11/17 07/11/17 07/11/17 05:15 05:15 08:40 WBC 14.1 H RBC 2.74 L Hgb 8.1 L Hct 24.6 L MCV 89.8 MCH 29.6 MCHC 32.9 RDW 13.2 RDW Differential 42.7 Plt Count 270 MPV 9.7 Sodium 132 L Potassium 4.6 Chloride 100 Carbon Dioxide 18.0 L Anion Gap 14 BUN 14 Creatinine 1.00 Estim Creat Clear Calc 34.91 Est GFR (MDRD) Af Amer 70 Est GFR (MDRD) Non-Af 58 L BUN/Creatinine Ratio 14.1 Glucose 134 H Calcium 7.8 L Phosphorus 1.8 L Magnesium 2.1 Total Bilirubin 0.70 AST 42 H ALT 34 Alkaline Phosphatase 100 Total Protein 6.3 L Albumin 2.8 L Globulin 3.5 Albumin/Globulin Ratio 0.8 L Urine Color Yellow Urine Clarity Cloudy Urine pH 6.0 Ur Specific [place] 1.015 Urine Protein 100 H Urine Glucose (UA) Normal Urine Ketones Negative Urine Occult Blood 250 H Urine Nitrite Negative Urine Bilirubin Negative Urine Urobilinogen Normal Ur Leukocyte Esterase 500 H Urine RBC 10-25 SEEN Urine WBC >100 SEEN Ur Squamous Epith Cells 0 SEEN Urine Bacteria 1+ Urine Mucus 0 SEEN
[2017-07-11 11:10] VITALS: BP 105/62
--- NOTE | 2017-07-11 11:23 | PCM.RU.PYE ---
Admission Information Status Changes from Prescreening?: No changes Identified Actual Problem List:: Falls, Pain, ALteration in Cmfrt, Cognitve Impr/Memory Loss, Bowel, Constipation, Mobility Impaired, Self Care Deficit, BP, Hypertension, Ineffect.D/C Plan r/t Psy Potential Problem List:: DVT, Bleeding, Infection, UTI, Aspiration, Falls, Skin Integrity, Depression Risk of Complications DVT: LMWH, THONG Hose, Sequential Compression Device Bleeding: Monitor Lab Values, Nursing to Teach Precautions for anti-coagulation therapy., Wound, if applicable, to be assessed every shift., Stroke patients assessed for lethargy or change in status. Infection: Clinical Staff to Monitor for S/S of infection:, S/S of infection include fever, redness, warmth, etc. Urinary Tract Infection: Monitor for frequency, burning, discomfort, or incontinence., Nursing will obtain urine sample for urinalysis and C&S when ordered. Aspiration: Clinical staff will monitor for coughing, drooling, congestion., Speech will evaluate swallowing and dsyphasia., Nursing will monitor patient swallowing during meals. Falls: Patient will be evaluated for Fall Precautions, Patient will be placed on Fall Precautions as indicated per protocol. Skin Breakdown: Nursing will assess skin daily using assessment tool., Nursing will place on Skin Breakdown Precautions as indicated. Pain: Clinical staff will assess patient's pain level per protocol., Medications will be given, if needed, and the pain level reassessed., Other methods: Massage, distraction, decrease stimulus, etc. used PRN. Plan of Care Patient requires physician specializing in physical medicine and rehab oversight to provide close medical supervision of rehab issues including: Pain Management, Sleep Problems, Bowel and Bladder, Medical and co-morbidity Management, DVT prophylaxis, Rehabilitation Leadership, Coordination of treatment team Patient needs Physical Therapy: For a minimum of 1 hour, At least 5 out of 7 days Patient needs Physical Therapy to improve:: Mobility, Mobility, Mobility, Strengthening, Transfers, Stretching, ROM, Endurance, Stairs, Gait, Balance Patient needs Occupational Therapy: For a minimum of 1 hour, At least 5 out of 7 days Patient needs Occupational Therapy to improve ADL's incl.: Eating, Grooming, Bathing, Dressing, Toileting, Toilet transfers, Community Reintegration, Higher functioning activities, Household tasks, Adaptive Equipment, Splinting, Other activities as determined Patient requires 24/ Rehabilitation Nursing for: Pain Issues, Identifying and preventing risk factors, Monitoring and reporting current medical conditions, Assisting with ambulation, transfer, and all ADL's, Teaching patients about disease process and medications, Family teaching, Providing safe environment, Bowel and Bladder Issues, Skin integrity, Medication Management Patient needs Recreation Facilities Supervisor/ Case Management for: Discharge Planning, Arranging Home Equipment or Services, Family Interventions Patient needs Dietary and Nutrition Services for: Adequate Nutrition, Nutritional Supplements, Nutritional Education Goals Patient will remain: free from falls, or injury at time of discharge. Patient will perform bed mobility at: MOD I level of assist. Patient will complete transfers from bed to chair at: MOD I level of assist. Patient will ambulate: 100 feet, with MOD I assist, with LRD Patient will complete upper body dressing at: MOD I level of assist. Patient will complete lower body dressing at: MOD I level of assist. Patient will complete toileting at: MOD I level of assist. Patient will perform bathing at: MOD I level of assist. Patient will complete grooming at: MOD I level of assist. Patient will complete home management skills at: MOD I level of assist. Patient will achieve: 12 stairs, at MOD I assist Patient will have pain level of: of 3 or less Patient's skin will: remain intact, free from infection. Patient will receive: adequate nutrition. Discharge Planning Pt Prognosis for Sig. Practical Improv. w/in Reasonable Time: Good Anticipated D/C Destination: Home with Outpt Therapy Was Preadmission Assessment Accurate?: Yes
[2017-07-11] MEDS: 0.9% Normal Saline 1,000 ML 150 ML IV (12:34)
--- NOTE | 2017-07-11 12:54 | NURSING ---
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 At this time, medication dc'd and will await urine sensitivity result. Patient has many atb allergies.
[2017-07-11] MEDS: Multivitamins,Therapeutic Tablet 1 TABLET PO (13:23)
[2017-07-11] MEDS: Calcium (Elemental) 500 MG Tablet PO ×2 (13:24→18:34)
--- NOTE | 2017-07-11 15:15 | PCM.PN.HOSP ---
Patient Problems: Active and Suspected Problems (Last Reviewed 06/08/17 @ 10:11 by Alesha Mead) UTI (urinary tract infection) (Acute) Subjective: dysuria today. UA + for UTI. Vitals/I&O's: Vital Signs Temp Pulse Resp BP Pulse Ox 36.7 C 80 17 105/62 86 07/11/17 08:30 07/11/17 08:30 07/11/17 08:30 07/11/17 11:10 07/11/17 08:30 Oxygen Flow Rate (L/min) 1.5 Oxygen Delivery Method Room Air Weight: 65.9 kg Body Mass Index (BMI) 26.4 Intake and Output for Last 24 Hours 07/09/17 07/10/17 07/11/17 23:59 23:59 23:59 Intake Total 220 / 220 440 / 440 Output Total 750 / 750 225 / 225 Balance -530 / -530 215 / 215 General: Alert, Cooperative, No apparent distress HEENT: Atraumatic, Normocephalic Neck: No Nodes, Thyroid Normal Size and Texture Lungs: Clear to auscultation, Normal air movement, No rhonchi, No wheeze Cardiovascular: Regular rate, Regular Rhythm, Normal S1, No murmurs Abdomen: Bowel Sounds Present, Soft, Non Tender, Non-Distended, No Hepato-splenomegaly Extremities: No edema, No Calf Tenderness Skin: No rashes, No breakdown Psych/Mental Status: Normal Affect, Appropriate Laboratory Results 07/11/17 05:15: WBC 14.1 H, RBC 2.74 L, Hgb 8.1 L, Hct 24.6 L, MCV 89.8, MCH 29.6, MCHC 32.9, RDW 13.2, RDW Differential 42.7, Plt Count 270, MPV 9.7 07/11/17 05:15: Sodium 132 L, Potassium 4.6, Chloride 100, Carbon Dioxide 18.0 L, Anion Gap 14, BUN 14, Creatinine 1.00, Estim Creat Clear Calc 34.91, Est GFR (MDRD) Af Amer 70, Est GFR (MDRD) Non-Af 58 L, BUN/Creatinine Ratio 14.1, Glucose 134 H, Calcium 7.8 L, Phosphorus 1.8 L, Magnesium 2.1, Total Bilirubin 0.70, AST 42 H, ALT 34, Alkaline Phosphatase 100, Total Protein 6.3 L, Albumin 2.8 L, Globulin 3.5, Albumin/Globulin Ratio 0.8 L 07/11/17 08:40: Urine Color Yellow, Urine Clarity Cloudy, Urine pH 6.0, Ur Specific [place] 1.015, Urine Protein 100 H, Urine Glucose (UA) Normal, Urine Ketones Negative, Urine Occult Blood 250 H, Urine Nitrite Negative, Urine Bilirubin Negative, Urine Urobilinogen Normal, Ur Leukocyte Esterase 500 H, Urine RBC 10-25 SEEN, Urine WBC >100 SEEN, Ur Squamous Epith Cells 0 SEEN, Urine Bacteria 1+, Urine Mucus 0 SEEN Current Medications Acetaminophen (Tylenol) 650 mg PO Q6H PRN PRN PRN Reason: Mild Pain (0-3/10)/Headache Hydrocodone Bitart/Acetaminophen ([place] 5mg-325mg) 1 - 2 tablet PO Q6H PRN PRN PRN Reason: MOD-SEVERE PAIN (4-10/10) Last Admin: 07/11/17 13:23 Dose: 2 tablet Al Hydroxide/Mg Hydroxide (Mylanta Ii) 30 ml PO Q6H PRN PRN PRN Reason: Gastric burning [facility]) [facility] Last Admin: 07/10/17 20:54 Dose: 81 mg Atorvastatin Calcium (Lipitor) [facility] Last Admin: 07/10/17 20:54 Dose: 20 mg Bisacodyl (Dulcolax) 10 mg RECTAL .PRN X 1 PRN PRN Reason: Constipation Calcium Carbonate (Os-Rao 500) [facility] Last Admin: 07/11/17 13:24 Dose: 500 mg Cholecalciferol (Vitamin D) 2,000 unit PO BID [facility] Last Admin: 07/11/17 08:19 Dose: 2,000 unit Fentanyl (Duragesic Patch) 12 mcg TRANSDERM. Q3D [facility] Last Admin: 07/10/17 19:46 Dose: 12 mcg Gabapentin (Neurontin) [facility] Last Admin: 07/10/17 20:54 Dose: 300 mg Sodium Chloride () 1,000 mls @ 150 mls/hr IV .Q6H40M [facility] Stop: 07/11/17 17:59 Last Admin: 07/11/17 12:34 Dose: 150 mls/hr Aztreonam 1 gm/ Dextrose 100 mls @ 150 mls/hr IV Q8 [facility] Levothyroxine Sodium (Synthroid) 25 mcg PO DAILY@0600 [facility] Last Admin: 07/11/17 05:24 Dose: 25 mcg Lisinopril (Zestril) 20 mg PO QHS [facility] Last Admin: 07/10/17 20:55 Dose: 20 mg Loratadine (Claritin) 10 mg PO DAILY [facility] Last Admin: 07/11/17 08:19 Dose: 10 mg Magnesium Hydroxide (Milk Of Magnesia) 30 ml PO DAILY PRN PRN PRN Reason: Constipation Magnesium Hydroxide (Milk Of Magnesia) 30 ml PO .PRN X 1 PRN PRN Reason: Constipation Multivitamins (Multivitamin) 1 tablet PO DAILY@1200 [facility] Last Admin: 07/11/17 13:23 Dose: 1 tablet Multivitamins (Allbee W/C Caplet, Thera B Comp/C) 1 capsule PO DAILY@0800 [facility] Last Admin: 07/11/17 08:19 Dose: 1 capsule Rivaroxaban (Xarelto) 10 mg PO DAILY@0600 [facility] Last Admin: 07/11/17 05:24 Dose: 10 mg Senna/Docusate Sodium (Senokot-S, Leighann-Colace) 2 tablet PO BID [facility] Last Admin: 07/11/17 08:19 Dose: 2 tablet Venlafaxine HCl (Effexor Xr) 75 mg PO QHS [facility] Last Admin: 07/10/17 21:04 Dose: 75 mg Medical Necessity - Tobacco Use Smoking Status: Never smoker Tobacco Use: Non-smoker Assessment/Plan All Active Problems (Last Reviewed 06/08/17 @ 10:11 by Alesha Mead) Closed comminuted fracture of left hip (Acute) UTI (urinary tract infection) (Acute) Vasovagal syncope (Acute) 1. UTI: Denies frequent UTIs despite multiple medication allergies The common antibiotics for standard urinary tract infections are not an option for the patient and will utilize aztreonam. Final identification and sensitivities once culture results are available. 2. Left intertrochanteric fracture s/p ORIF on 07/[address] Cain 2 weeks after surgery 3. DVT proph: on Xarelto. Code Visit Inpatient E&M: 11697 Subs Hosp L2
--- NOTE | 2017-07-11 15:19 | PN_ITS ---
Patient Problems: Active and Suspected Problems (Last Reviewed 06/08/17 @ 10:11 by Alesha Mead) UTI (urinary tract infection) (Acute) Subjective: dysuria today. UA + for UTI. Vitals/I&O's: Vital Signs Temp Pulse Resp BP Pulse Ox 36.7 C 80 17 105/62 86 07/11/17 08:30 07/11/17 08:30 07/11/17 08:30 07/11/17 11:10 07/11/17 08:30 Oxygen Flow Rate (L/min) 1.5 Oxygen Delivery Method Room Air Weight: 65.9 kg Body Mass Index (BMI) 26.4 Intake and Output for Last 24 Hours 07/09/17 07/10/17 07/11/17 23:59 23:59 23:59 Intake Total 220 / 220 440 / 440 Output Total 750 / 750 225 / 225 Balance -530 / -530 215 / 215 General: Alert, Cooperative, No apparent distress HEENT: Atraumatic, Normocephalic Neck: No Nodes, Thyroid Normal Size and Texture Lungs: Clear to auscultation, Normal air movement, No rhonchi, No wheeze Cardiovascular: Regular rate, Regular Rhythm, Normal S1, No murmurs Abdomen: Bowel Sounds Present, Soft, Non Tender, Non-Distended, No Hepato- splenomegaly Extremities: No edema, No Calf Tenderness Skin: No rashes, No breakdown Psych/Mental Status: Normal Affect, Appropriate Laboratory Results 07/11/17 05:15: WBC 14.1 H, RBC 2.74 L, Hgb 8.1 L, Hct 24.6 L, MCV 89.8, MCH 29.6, MCHC 32.9, RDW 13.2, RDW Differential 42.7, Plt Count 270, MPV 9.7 07/11/17 05:15: Sodium 132 L, Potassium 4.6, Chloride 100, Carbon Dioxide 18.0 L , Anion Gap 14, BUN 14, Creatinine 1.00, Estim Creat Clear Calc 34.91, Est GFR ( MDRD) Af Amer 70, Est GFR (MDRD) Non-Af 58 L, BUN/Creatinine Ratio 14.1, Glucose 134 H, Calcium 7.8 L, Phosphorus 1.8 L, Magnesium 2.1, Total Bilirubin 0.70, AST 42 H, ALT 34, Alkaline Phosphatase 100, Total Protein 6.3 L, Albumin 2.8 L, Globulin 3.5, Albumin/Globulin Ratio 0.8 L 07/11/17 08:40: Urine Color Yellow, Urine Clarity Cloudy, Urine pH 6.0, Ur Specific [place] 1.015, Urine Protein 100 H, Urine Glucose (UA) Normal, Urine Ketones Negative, Urine Occult Blood 250 H, Urine Nitrite Negative, Urine Bilirubin Negative, Urine Urobilinogen Normal, Ur Leukocyte Esterase 500 H, Urine RBC 10-25 SEEN, Urine WBC >100 SEEN, Ur Squamous Epith Cells 0 SEEN, Urine Bacteria 1+, Urine Mucus 0 SEEN Current Medications Acetaminophen (Tylenol) 650 mg PO Q6H PRN PRN PRN Reason: Mild Pain (0-3/10)/Headache Hydrocodone Bitart/Acetaminophen ([place] 5mg-325mg) 1 - 2 tablet PO Q6H PRN PRN PRN Reason: MOD-SEVERE PAIN (4-10/10) Last Admin: 07/11/17 13:23 Dose: 2 tablet Al Hydroxide/Mg Hydroxide (Mylanta Ii) 30 ml PO Q6H PRN PRN PRN Reason: Gastric burning Aspirin (Ecotrin) [facility] Last Admin: 07/10/17 20:54 Dose: 81 mg Atorvastatin Calcium (Lipitor) 20 mg PO QSSM [facility] Last Admin: 07/10/17 20:54 Dose: 20 mg Bisacodyl (Dulcolax) 10 mg RECTAL .PRN X 1 PRN PRN Reason: Constipation Calcium Carbonate (Os-Rao 500) [facility] Last Admin: 07/11/17 13:24 Dose: 500 mg Cholecalciferol (Vitamin D) 2,000 unit PO BID [facility] Last Admin: 07/11/17 08:19 Dose: 2,000 unit Fentanyl (Duragesic Patch) 12 mcg TRANSDERM. Q3D [facility] Last Admin: 07/10/17 19:46 Dose: 12 mcg Gabapentin (Neurontin) 300 mg PO QSSM [facility] Last Admin: 07/10/17 20:54 Dose: 300 mg Sodium Chloride () 1,000 mls @ 150 mls/hr IV .Q6H40M [facility] Stop: 07/11/17 17:59 Last Admin: 07/11/17 12:34 Dose: 150 mls/hr Aztreonam 1 gm/ Dextrose 100 mls @ 150 mls/hr IV Q8 [facility] Levothyroxine Sodium (Synthroid) 25 mcg PO DAILY@0600 [facility] Last Admin: 07/11/17 05:24 Dose: 25 mcg Lisinopril (Zestril) 20 mg PO QHS [facility] Last Admin: 07/10/17 20:55 Dose: 20 mg Loratadine (Claritin) 10 mg PO DAILY [facility] Last Admin: 07/11/17 08:19 Dose: 10 mg Magnesium Hydroxide (Milk Of Magnesia) 30 ml PO DAILY PRN PRN PRN Reason: Constipation Magnesium Hydroxide (Milk Of Magnesia) 30 ml PO .PRN X 1 PRN PRN Reason: Constipation Multivitamins (Multivitamin) 1 tablet PO DAILY@1200 [facility] Last Admin: 07/11/17 13:23 Dose: 1 tablet Multivitamins (Allbee W/C Caplet, Thera B Comp/C) 1 capsule PO DAILY@0800 [facility] Last Admin: 07/11/17 08:19 Dose: 1 capsule Rivaroxaban (Xarelto) 10 mg PO DAILY@0600 [facility] Last Admin: 07/11/17 05:24 Dose: 10 mg Senna/Docusate Sodium (Senokot-S, Leighann-Colace) 2 tablet PO BID [facility] Last Admin: 07/11/17 08:19 Dose: 2 tablet Venlafaxine HCl (Effexor Xr) 75 mg PO QHS [facility] Last Admin: 07/10/17 21:04 Dose: 75 mg Medical Necessity - Tobacco Use Smoking Status: Never smoker Tobacco Use: Non-smoker Assessment/Plan All Active Problems (Last Reviewed 06/08/17 @ 10:11 by Alesha Mead) Closed comminuted fracture of left hip (Acute) UTI (urinary tract infection) (Acute) Vasovagal syncope (Acute) 1. UTI: * Denies frequent UTIs despite multiple medication allergies * The common antibiotics for standard urinary tract infections are not an option for the patient and will utilize aztreonam. Final identification and sensitivities once culture results are available. 2. Left intertrochanteric fracture * s/p ORIF on 07/08 * follow up with Dr. Cain 2 weeks after surgery 3. DVT proph: on Xarelto. Code Visit Inpatient E&M: 27946 Subs Hosp L2
[2017-07-11 20:23] VITALS: BP 146/63; PULSE 93; RESP 18; TEMP 36.4; O2SAT 96
--- NOTE | 2017-07-11 20:28 | NURSING ---
Pt refused MOM till morning. Pt claims gas is frequent and bowel sounds are present in all quadrants. Pt states she is tired from therapy and will try MOM tomorrow.
[2017-07-11] MEDS: Gabapentin 300 MG Capsule PO (21:44)
[2017-07-11] MEDS: Atorvastatin Calcium 20 MG Tablet PO (21:44)
[2017-07-11] MEDS: Lisinopril 20 MG Tablet PO (21:44)
[2017-07-11] MEDS: Venlafaxine XR 75 MG Capsule PO (21:44)
[2017-07-11] MEDS: Aspirin E.C. 81 MG Tablet PO (21:44)
[2017-07-12] MEDS: 0.9% NaCl Peripheral Flush Adult/Peds IV ×3 (04:15→22:31)
[2017-07-12] MEDS: Levothyroxine 25 MCG TABLET PO (04:59)
[2017-07-12] MEDS: Rivaroxaban 10 MG Tablet PO (04:59)
--- NOTE | 2017-07-12 06:15 | NURSING ---
IV on RFA infiltrated and new IV restarted on left wrist. IV Azactam given and pt tolerated well.
--- NOTE | 2017-07-12 06:20 | NURSING ---
Pt refused MOM with hs meds. Pt expressed desire to sleep d/t fatigue and feared unwanted interruption from bowel urgency.
--- NOTE | 2017-07-12 06:24 | NURSING ---
Proximal dressing removed with moderate ss drainage. Median and distal dressing removed with small amount of ss drainage. Incisions cleansed and ABD dressing applied. Pt tolerated well.
[2017-07-12] MEDS: HYDROcodone Bitartrate/Apap 5/325 Tablet PO ×3 (06:52→20:45)
[2017-07-12 07:15] VITALS: BP 137/70; PULSE 88; RESP 16; TEMP 36.6; O2SAT 91
[2017-07-12] MEDS: Vitamin B Comp W-C Capsule 1 CAP PO (08:52)
[2017-07-12] MEDS: Loratadine 10 MG Tablet PO (08:53)
[2017-07-12] MEDS: Calcium (Elemental) 500 MG Tablet PO ×2 (08:53→17:20)
[2017-07-12] MEDS: Senna/Docusate Sodium 1 Tablet 2 TABLET PO ×2 (08:53→22:12)
[2017-07-12] MEDS: Magnesium Hydroxide 30 ML UDC PO (09:13)
--- NOTE | 2017-07-12 09:18 | PCM.PN.NEU ---
Patient Problems: Active and Suspected Problems (Last Reviewed 06/08/17 @ 10:11 by Alesha Mead) UTI (urinary tract infection) (Acute) Subjective: Patient seen and examined. Tolerating therapy. Pain is currently a 5/10, which is tolerable for her. Denies any shortness of breath or chest pains. She is currently being treated for a UTI and is on Aztreonam, pending results of Culture. - Physical Exam General: Alert, Oriented x3, Cooperative HEENT: Atraumatic, PERRLA, EOMI, Normocephalic Neck: Supple, No JVD, Negative Carotid Bruits Lungs: Clear to auscultation, Normal air movement Cardiovascular: Regular rate, No murmurs Abdomen: Bowel Sounds Present, Soft, Non Tender Extremities: No edema, Capillary Refill Less than 3 Seconds Skin: No rashes, No breakdown Musculoskeletal: No Tenderness to Palpation of Joints or Extremities Neurological: Cranial nerves II-XII grossly intact Psych/Mental Status: Normal Affect, Appropriate, Alert and oriented to time, place, person, mood and affect Vital Signs Temp Pulse Resp BP Pulse Ox 97.8 F 88 16 137/70 H 91 07/12/17 07:15 07/12/17 07:15 07/12/17 07:15 07/12/17 07:15 07/12/17 07:15 Oxygen Flow Rate (L/min) 2 Oxygen Delivery Method Nasal Cannula Weight: 65.9 kg Body Mass Index (BMI) 26.4 Intake and Output for Last 24 Hours 07/10/17 07/11/17 07/12/17 23:59 23:59 23:59 Intake Total 220 / 220 440 / 440 240 / 240 Output Total 750 / 750 225 / 225 Balance -530 / -530 215 / 215 240 / 240 Laboratory Tests Past 24 Hrs 07/11/17 08:40 Urine RBC 10-25 SEEN Urine WBC >100 SEEN Ur Squamous Epith Cells 0 SEEN Urine Bacteria 1+ Urine Mucus 0 SEEN Active Medications Acetaminophen (Tylenol) 650 mg PO Q6H PRN PRN PRN Reason: Mild Pain (0-3/10)/Headache Hydrocodone Bitart/Acetaminophen ([place] 5mg-325mg) 1 - 2 tablet PO Q6H PRN PRN PRN Reason: MOD-SEVERE PAIN (4-10/10) Last Admin: 05/31/18 06:52 Dose: 2 tablet Al Hydroxide/Mg Hydroxide (Mylanta Ii) 30 ml PO Q6H PRN PRN PRN Reason: Gastric burning Aspirin (Ecotrin) 81 mg PO QHS [facility] Last Admin: 07/11/17 21:44 Dose: 81 mg Atorvastatin Calcium (Lipitor) 20 mg PO QHS [facility] Last Admin: 07/11/17 21:44 Dose: 20 mg Bisacodyl (Dulcolax) 10 mg RECTAL .PRN X 1 PRN PRN Reason: Constipation Calcium Carbonate ([facility]Rao 500) [facility] Last Admin: 07/12/17 08:53 Dose: 500 mg Cholecalciferol (Vitamin D) 2,000 unit PO BID [facility] Last Admin: 07/12/17 08:53 Dose: 2,000 unit Fentanyl (Duragesic Patch) 12 mcg TRANSDERM. Q3D [facility] Last Admin: 07/10/17 19:46 Dose: 12 mcg Gabapentin (Neurontin) 300 mg PO QHS [facility] Last Admin: 07/11/17 21:44 Dose: 300 mg Aztreonam 1 gm/ Dextrose 100 mls @ 150 mls/hr IV Q8 [facility] Last Admin: 07/12/17 05:00 Dose: 150 mls/hr Levothyroxine Sodium (Synthroid) 25 mcg PO DAILY@0600 [facility] Last Admin: 07/12/17 04:59 Dose: 25 mcg Lisinopril (Zestril) 20 mg PO QHS [facility] Last Admin: 07/11/17 21:44 Dose: 20 mg Loratadine (Claritin) 10 mg PO DAILY [facility] Last Admin: 07/12/17 08:53 Dose: 10 mg Magnesium Hydroxide (Milk Of Magnesia) 30 ml PO DAILY PRN PRN PRN Reason: Constipation Last Admin: 07/12/17 09:13 Dose: 30 ml Magnesium Hydroxide (Milk Of Magnesia) 30 ml PO .PRN X 1 PRN PRN Reason: Constipation Multivitamins (Multivitamin) 1 tablet PO DAILY@1200 [facility] Last Admin: 07/11/17 13:23 Dose: 1 tablet Multivitamins (Allbee W/C Caplet, Thera B Comp/C) 1 capsule PO DAILY@0800 [facility] Last Admin: 07/12/17 08:52 Dose: 1 capsule Rivaroxaban (Xarelto) 10 mg PO DAILY@0600 [facility] Last Admin: 07/12/17 04:59 Dose: 10 mg Senna/Docusate Sodium (Senokot-S, Leighann-Colace) 2 tablet PO BID [facility] Last Admin: 07/12/17 08:53 Dose: 2 tablet Sodium Chloride () 5 - 30 ml IV UD PRN PRN Reason: SALINE FLUSH Last Admin: 07/12/17 06:19 Dose: 10 ml Venlafaxine HCl (Effexor Xr) 75 mg PO QHS [facility] Last Admin: 07/11/17 21:44 Dose: 75 mg Medical Necessity - Tobacco Use Smoking Status: Never smoker Tobacco Use: Non-smoker Assessment/Plan All Active Problems (Last Reviewed 06/08/17 @ 10:11 by lAesha Mead) UTI (urinary tract infection) (Acute) Closed comminuted fracture of left hip (Acute) Vasovagal syncope (Acute) Debility s/p left ORIF with intramedullary nail. Goal of rehab is christianity of functional independence. Plan: - Physical therapy for gait and balance - Occupational Therapy for ADLs - As needed analgesics - Bowel protocol - s/p Left ORIF with intramedullary nail - Incision site is C/D/I, timothy intact, continue polar care - DVT prophylaxis; bilateral Cy Hoses, SCDs and Xarelto therapy - Weight bearing status; partial weightbearing left lower extremity with a walker - Acute Anemia 2/2 blood loss during surgery; asymptomatic, without indication for transfusion, started Ferrex - Hx Hypothyroidism, continue Synthroid - Hypertension - Continue home medication - HPL continue home medication - Hx Depression, continue Effexor - Will follow-up with [facility] orthopedic in 10-14 days postoperative with x-rays. - Possible UTI - UA, and Culture sent, UA has Leukocyte and +1 bacteria = started on aztreonam, patient unable to do standard antibiotics for UTIs 2/2 allergies. - Left upper lung lobe - increased density, may represent a focal infiltrate and/or mass = replete CXR on Sunday
[2017-07-12] MEDS: Multivitamins,Therapeutic Tablet 1 TABLET PO (13:05)
[2017-07-12 19:32] VITALS: BP 100/57; PULSE 82; RESP 16; TEMP 36.7; O2SAT 95
--- NOTE | 2017-07-12 20:26 | NURSING ---
Prune juice provided per pt request. Pt refused suppository at this time.
[2017-07-12] MEDS: Venlafaxine XR 75 MG Capsule PO (22:11)
[2017-07-12] MEDS: Aspirin E.C. 81 MG Tablet PO (22:11)
[2017-07-12] MEDS: Gabapentin 300 MG Capsule PO (22:12)
[2017-07-12] MEDS: prednisoLONE eye drops (1 mL) 1 DROP OPTH.BTL 1 DRP LEFT EYE (22:12)
[2017-07-12] MEDS: Atorvastatin Calcium 20 MG Tablet PO (22:12)
[2017-07-12] MEDS: Lisinopril 20 MG Tablet PO (22:13)
[2017-07-13] MEDS: Rivaroxaban 10 MG Tablet PO (05:13)
[2017-07-13] MEDS: Levothyroxine 25 MCG TABLET PO (05:13)
[2017-07-13 06:14] LABS: Hematocrit 22.3 % (37-47); Hemoglobin 7.2 g/dl (12.0-15.0); Mean Corp Hgb Conc 32.3 g/gl (32-36); Mean Corpuscular Volume 92.9 fL (81-99); Mean Platelet Vol. 8.9 fl (6.2-12.0); Platelet Count 322 K/mm3 (150-450); RBC Distribution Width CV 13.7 % (11.6-14.6); RBC Distribution Width SD 46.3 fl (35.1-43.9)
[2017-07-13] MEDS: 0.9% NaCl Peripheral Flush Adult/Peds IV ×2 (06:18→21:28)
[2017-07-13 06:34] LABS: Scan Indicated on CBC? Y/N NO
[2017-07-13 06:35] LABS: ALB/GLOB Ratio 0.7 RATIO (0.9-2.4); AST(SGOT) 26 U/L (15-37); Alanine Aminotransfer ALT/SGPT 28 U/L (13-56); Albumin, Serum 2.4 g/dL (3.2-5.0); Alkaline Phosphatase 95 U/L (45-117); Anion Gap 7 (5-15); BUN 22 mg/dL (7-18); BUN/Creat Ratio 23.4 RATIO (10-20); Calcium,Total 8.5 mg/dL (8.5-10.1); Chloride 103 mmol/L (98-107); Creatinine, Serum 0.94 mg/dL (0.55-1.02); EST Glomerular Filtration Rate 62 mL/min (>60); Est Glom Filt Rate - Afr Amer 75 mL/min (>60); Estimated Creatinine Clearance 37.14 ml/min; Globulin 3.4 g/dL (2.2-4.2); Glucose 94 mg/dL (74-106); Potassium 5.4 mmol/L (3.5-5.1); Protein, Total 5.8 g/dL (6.4-8.2); Sodium Level 135 mmol/L (136-145)
[2017-07-13 06:58] VITALS: O2SAT 93
[2017-07-13] MEDS: Vitamin B Comp W-C Capsule 1 CAP PO (07:46)
[2017-07-13] MEDS: Calcium (Elemental) 500 MG Tablet PO ×2 (07:46→17:47)
[2017-07-13] MEDS: Senna/Docusate Sodium 1 Tablet 2 TABLET PO (07:47)
[2017-07-13] MEDS: Loratadine 10 MG Tablet PO (07:47)
[2017-07-13] MEDS: Multivitamins,Therapeutic Tablet 1 TABLET PO (07:47)
[2017-07-13 07:48] VITALS: BP 110/54; PULSE 90; RESP 16; TEMP 36.8; O2SAT 98
[2017-07-13] MEDS: HYDROcodone Bitartrate/Apap 5/325 Tablet PO ×3 (07:50→23:16)
[2017-07-13] MEDS: Magnesium Hydroxide 30 ML UDC PO (07:51)
--- NOTE | 2017-07-13 08:38 | RAD_ITS ---
STUDY: X-RAY CHEST REASON FOR EXAM: Female, 77 years old. Shortness of breath. Dyspnea. Recent hip surgery. TECHNIQUE: PA and lateral views of the chest. COMPARISON: Comparison is made with prior study dated July 07, 2017. FINDINGS: Mild elevation of the right hemidiaphragm. There is no demonstrated pleural abnormality. There is mild cardiac enlargement. Normal mediastinum and dede. Normal visualized pulmonary arteries. There is atherosclerotic tortuosity of the aortic arch and descending thoracic aorta. There are diffuse degenerative changes of the visualized thoracic spine. Healed left sixth rib fracture. There is no demonstrated abnormality of the visualized soft tissue structures of the upper abdomen. RAD/Chest PA and Lateral IMPRESSION: No acute abnormality is seen. Electronically Signed: Wilbert Garcia MD at 14:05 EDT Tel [phone], Service support ,
[2017-07-13] MEDS: Nitrofurantoin Macrocrystals 100 MG Capsule PO ×2 (12:35→17:47)
[2017-07-13] MEDS: Ferrous Sulfate 325 MG Tablet PO (17:47)
[2017-07-13] MEDS: Venlafaxine XR 75 MG Capsule PO (21:27)
[2017-07-13] MEDS: Aspirin E.C. 81 MG Tablet PO (21:27)
[2017-07-13] MEDS: Gabapentin 300 MG Capsule PO (21:27)
[2017-07-13] MEDS: Atorvastatin Calcium 20 MG Tablet PO (21:27)
[2017-07-13] MEDS: Lisinopril 20 MG Tablet PO (21:27)
[2017-07-13] MEDS: prednisoLONE eye drops (1 mL) 1 DROP OPTH.BTL 1 DRP LEFT EYE (21:28)
[2017-07-13 21:51] VITALS: BP 150/70; PULSE 76; RESP 16; TEMP 36.7; O2SAT 90
[2017-07-13 22:00] VITALS: O2SAT 90
--- NOTE | 2017-07-14 02:17 | NURSING ---
Reviewed and agree with LPNs fims and handoff
[2017-07-14] MEDS: Levothyroxine 25 MCG TABLET PO (06:20)
[2017-07-14] MEDS: Rivaroxaban 10 MG Tablet PO (06:20)
[2017-07-14 06:44] VITALS: O2SAT 93
[2017-07-14] MEDS: 0.9% NaCl Peripheral Flush Adult/Peds IV ×2 (08:23→19:30)
[2017-07-14] MEDS: Vitamin B Comp W-C Capsule 1 CAP PO (08:26)
[2017-07-14] MEDS: Ferrous Sulfate 325 MG Tablet PO ×2 (08:26→16:57)
[2017-07-14] MEDS: Calcium (Elemental) 500 MG Tablet PO ×2 (08:26→16:57)
[2017-07-14] MEDS: Nitrofurantoin Macrocrystals 100 MG Capsule PO ×2 (08:26→16:57)
[2017-07-14] MEDS: Loratadine 10 MG Tablet PO (08:27)
[2017-07-14 08:29] VITALS: BP 160/68; PULSE 86; RESP 16; TEMP 36.5; O2SAT 94
[2017-07-14] MEDS: HYDROcodone Bitartrate/Apap 5/325 Tablet PO ×3 (08:32→23:01)
[2017-07-14 09:00] VITALS: O2SAT 94
--- NOTE | 2017-07-14 09:33 | NURSING ---
Pt tolerating therapy well. Pt is asymptomatic, denies any chest pain, SOB, Dizziness, palpitations. Will continue to monitor.
[2017-07-14] MEDS: Multivitamins,Therapeutic Tablet 1 TABLET PO (11:52)
--- NOTE | 2017-07-14 13:50 | PN.NEURO_ITS ---
Subjective: Complaints. Sleeping well. No further nausea. Constipation has resolved. Pain is controlled. Therapies. - Physical Exam General: Alert, Oriented x3, Cooperative, No apparent distress Neurological: Cranial nerves II-XII grossly intact Psych/Mental Status: Normal Affect Vital Signs Temp Pulse Resp BP Pulse Ox 36.5 C L 86 16 160/68 H 94 07/14/17 08:29 07/14/17 08:29 07/14/17 08:29 07/14/17 08:29 07/14/17 09:00 Oxygen Flow Rate (L/min) 1 Oxygen Delivery Method Room Air Weight: 65.9 kg Body Mass Index (BMI) 26.4 Intake and Output for Last 24 Hours 07/12/17 07/13/17 07/14/17 23:59 23:59 23:59 Intake Total 240 / 240 580 / 580 Balance 240 / 240 580 / 580 Microbiology Past 72 Hours 07/11/17 08:40 Urine Culture - Final Urine Catheter - Catheter Escherichia coli Current Medications Generic Name Dose Route Start Last Admin Trade Name Freq PRN Reason Stop Dose Admin Acetaminophen 650 mg 07/10/17 17:56 Tylenol PO Q6H PRN PRN Mild Pain (0-3/10)/Headache Hydrocodone Bitart/Acetaminophen 1 - 2 tablet 07/10/17 17:56 07/14/17 08:32 [place] 5mg-325mg PO 2 tablet Q6H PRN PRN Administration MOD-SEVERE PAIN (4-10/10) Al Hydroxide/Mg Hydroxide 30 ml 07/10/17 17:25 Mylanta Ii PO Q6H PRN PRN Gastric burning Aspirin 81 mg 07/10/17 22:00 07/13/17 21:27 Ecotrin PO 81 mg QHS SUMANTH Administration Atorvastatin Calcium 20 mg 07/10/17 22:00 07/13/17 21:27 Lipitor PO 20 mg QHS SUMANTH Administration Bisacodyl 10 mg 07/10/17 17:56 Dulcolax RECTAL .PRN X 1 PRN Constipation Calcium Carbonate 500 mg 07/11/17 09:39 07/14/17 08:26 Os-Rao 500 PO 500 mg BIDCM SUMANTH Administration Cholecalciferol 2,000 unit 07/10/17 22:00 07/14/17 08:27 Vitamin D PO 2,000 unit BID SUMANTH Administration Fentanyl 12 mcg 07/10/17 18:30 07/13/17 19:30 Duragesic Patch TRANSDERM. 12 mcg Q3D [facility] Administration Ferrous Sulfate 325 mg 07/13/17 17:00 07/14/17 08:26 Ferrous Sulfate PO 325 mg BIDCM [facility] Administration Gabapentin 300 mg 07/10/17 22:00 07/13/17 21:27 Neurontin PO 300 mg QHS [facility] Administration Levothyroxine Sodium 25 mcg 07/11/17 06:00 07/14/17 06:20 Synthroid PO 25 mcg DAILY@0600 [facility] Administration Lisinopril 20 mg 07/10/17 22:00 07/13/17 21:27 Zestril PO 20 mg QHS [facility] Administration Loratadine 10 mg 07/11/17 10:00 07/14/17 08:27 Claritin PO 10 mg DAILY [facility] Administration Magnesium Hydroxide 30 ml 07/10/17 17:25 07/13/17 07:51 Milk Of Magnesia PO 30 ml DAILY PRN PRN Administration Constipation Magnesium Hydroxide 30 ml 07/10/17 17:56 Milk Of Magnesia PO .PRN X 1 PRN Constipation Multivitamins 1 tablet 07/11/17 12:00 07/14/17 11:52 Multivitamin PO 1 tablet DAILY@1200 [facility] Administration Multivitamins 1 capsule 07/11/17 08:00 07/14/17 08:26 Allbee W/C Caplet, Thera B Comp/C PO 1 capsule DAILY@0800 [facility] Administration Nitrofurantoin Macrocrystals 100 mg 07/13/17 12:00 07/14/17 08:26 Macrobid PO 07/17/17 17:01 100 mg BIDCM [facility] Administration Polyethylene Glycol 17 gm 07/14/17 10:00 07/14/17 07:48 Miralax PO Not Given DAILY [facility] Prednisolone Acetate 1 drop 07/12/17 22:00 07/13/17 21:28 Pred Forte Eye Drops (1 Ml) LEFT EYE 1 drop HS [facility] Administration Rivaroxaban 10 mg 07/11/17 06:00 07/14/17 06:20 Xarelto PO 10 mg DAILY@0600 [facility] Administration Senna/Docusate Sodium 2 tablet 07/10/17 22:00 07/14/17 07:48 Senokot-S, Leighann-Colace PO Not Given BID [facility] Sodium Chloride 5 - 30 ml 07/11/17 18:39 07/14/17 08:23 IV 5 ml UD PRN Administration SALINE FLUSH Venlafaxine HCl 75 mg 07/10/17 22:00 07/13/17 21:27 Effexor Xr PO 75 mg QHS [facility] Administration Medical Necessity - Tobacco Use Smoking Status: Never smoker Tobacco Use: Non-smoker Assessment/Plan All Active Problems (Last Reviewed 06/08/17 @ 10:11 by Alesha Mead) UTI (urinary tract infection) (Acute) Closed comminuted fracture of left hip (Acute) Vasovagal syncope (Acute) Debility s/p left ORIF with intramedullary nail. Goal of rehab is mandaen of functional independence. Plan: - Physical therapy for gait and balance - Occupational Therapy for ADLs - As needed analgesics - Bowel protocol - s/p Left ORIF with intramedullary nail - Incision site is C/D/I, timothy intact, continue polar care - DVT prophylaxis; bilateral Cy Hoses, SCDs and Xarelto therapy - Weight bearing status; partial weightbearing left lower extremity with a walker - Acute Anemia 2/2 blood loss during surgery; asymptomatic, without indication for transfusion, started Ferrex. 07/14: She had some nausea which was presumed to to iron but this has resolved. Iron has been restarted. We will recheck her hemoglobin tomorrow. - Hx Hypothyroidism, continue Synthroid - Hypertension - Continue home medication - HPL continue home medication - Hx Depression, continue Effexor - Will follow-up with [place] [facility] in 10-14 days postoperative with x- rays. - Possible UTI - UA, and Culture sent, UA has Leukocyte and +1 bacteria = started on aztreonam, patient unable to do standard antibiotics for UTIs 2/2 allergies. - Left upper lung lobe - increased density, may represent a focal infiltrate and /or mass = replete CXR on Sunday. 07/14: Repeat chest x-ray yesterday negative
[2017-07-14 19:01] VITALS: BP 134/64; PULSE 88; RESP 16; TEMP 37.2; O2SAT 98
[2017-07-14 20:00] VITALS: PULSE 88; RESP 16; O2SAT 98
[2017-07-14] MEDS: Lisinopril 20 MG Tablet PO (20:36)
[2017-07-14] MEDS: Venlafaxine XR 75 MG Capsule PO (20:36)
[2017-07-14] MEDS: Gabapentin 300 MG Capsule PO (20:36)
[2017-07-14] MEDS: Atorvastatin Calcium 20 MG Tablet PO (20:37)
[2017-07-14] MEDS: prednisoLONE eye drops (1 mL) 1 DROP OPTH.BTL 1 DRP LEFT EYE (20:37)
[2017-07-14] MEDS: Aspirin E.C. 81 MG Tablet PO (20:37)
--- NOTE | 2017-07-15 00:07 | NURSING ---
REVIEWED AND AGREE WITH [employer] FIM AND HANDOFF CHARTING.
[2017-07-15] MEDS: Rivaroxaban 10 MG Tablet PO (05:43)
[2017-07-15] MEDS: Levothyroxine 25 MCG TABLET PO (05:43)
[2017-07-15 06:21] LABS: Hematocrit 22.5 % (37-47)
[2017-07-15 06:48] VITALS: O2SAT 91
[2017-07-15 07:03] VITALS: BP 148/87; PULSE 72; RESP 16; TEMP 36.6; O2SAT 97
[2017-07-15] MEDS: Nitrofurantoin Macrocrystals 100 MG Capsule PO ×2 (07:06→16:55)
[2017-07-15] MEDS: Ferrous Sulfate 325 MG Tablet PO ×2 (07:06→16:55)
[2017-07-15] MEDS: Calcium (Elemental) 500 MG Tablet PO ×2 (07:06→16:55)
[2017-07-15] MEDS: Vitamin B Comp W-C Capsule 1 CAP PO (07:06)
[2017-07-15] MEDS: HYDROcodone Bitartrate/Apap 5/325 Tablet PO ×3 (07:08→20:58)
[2017-07-15] MEDS: Loratadine 10 MG Tablet PO (07:09)
--- NOTE | 2017-07-15 07:18 | NURSING ---
patient denies sob, chest pain, dizziness. patient sitting up eating breakfast. skin warm and dry, color pink. hgb 7.0 this am.
--- NOTE | 2017-07-15 08:00 | NURSING ---
dr cline texted via cortex of hgb 7.0 and patient asymptomatic, no new orders. patient was started on ferrous on 07/22/2017.
[2017-07-15] MEDS: 0.9% NaCl Peripheral Flush Adult/Peds IV ×2 (08:12→19:52)
[2017-07-15] MEDS: Multivitamins,Therapeutic Tablet 1 TABLET PO (11:53)
--- NOTE | 2017-07-15 12:37 | NURSING ---
up and ambulated arounds halls with walker and standby assist
--- NOTE | 2017-07-15 14:26 | NURSING ---
patient ambulated > 150 ft this shift with walker, gait steady no acute distress noted.
--- NOTE | 2017-07-15 17:03 | NURSING ---
Dr. Montoya visited pt and pt & family expressed concern about being fed food instead of tube feed. Dr. Montoya would like ST to see if Cookie Swallow scheduled for 14:00 on 07/16 could be prioritized to 1st thing in the morning? Nurse left message for ST.
--- NOTE | 2017-07-15 18:22 | NURSING ---
Spouse expressed concerns re: possible discharge soon. Spouse is attempting to get an elevated toilet installed and locate their commode riser. Spouse stated he will express his concerns in the TEAM mtg.
[2017-07-15 20:00] VITALS: BP 152/77; PULSE 80; RESP 18; TEMP 36.8; O2SAT 95
[2017-07-15 20:38] VITALS: PULSE 80; RESP 18; O2SAT 95
[2017-07-15] MEDS: Gabapentin 300 MG Capsule PO (20:59)
[2017-07-15] MEDS: Venlafaxine XR 75 MG Capsule PO (20:59)
[2017-07-15] MEDS: Atorvastatin Calcium 20 MG Tablet PO (21:00)
[2017-07-15] MEDS: Lisinopril 20 MG Tablet PO (21:00)
[2017-07-15] MEDS: Aspirin E.C. 81 MG Tablet PO (21:00)
[2017-07-15] MEDS: prednisoLONE eye drops (1 mL) 1 DROP OPTH.BTL 1 DRP LEFT EYE (21:00)
[2017-07-16] MEDS: HYDROcodone Bitartrate/Apap 5/325 Tablet PO (03:09)
--- NOTE | 2017-07-16 03:55 | NURSING ---
REVIEWED AND AGREE WITH [employer] FIM AND HANDOFF CHARTING.
[2017-07-20 12:11] LABS: Hematocrit 25.7 % (37-47); Hemoglobin 8.1 g/dl (12.0-15.0)
[2017-07-21 13:41] LABS: Thyroid Stim Hormone (TSH) 6.82 uIU/mL (0.358-3.74)
[2017-07-23 18:44] LABS: Absolute Lymphocyte Count 2.26 X10^3/ul (0.83-4.51); Absolute Neutrophil Count 7.4 X10^3/uL (2.0-7.7); Basophil# 0.06 X10^3/uL; Basophil% 0.5 % (0-1); Eosinophil# 0.48 X10^3/uL; Eosinophils% 4.3 % (0-5); Hematocrit 29.9 % (37-47); Hemoglobin 9.2 g/dl (12.0-15.0); Lymphocyte # 2.26 X10^3/ul (4.0); Lymphocyte % 20.5 % (19-41); Mean Corp Hgb Conc 30.8 g/gl (32-36); Mean Corpuscular Hgb 29.9 pg (27.0-32.0); Mean Corpuscular Volume 97.1 fL (81-99); Mean Platelet Vol. 8.7 fl (6.2-12.0); Monocyte# 0.75 X10^3/uL; Monocyte% 6.8 % (0-10); Neutrophil # 7.41 X10^3/uL (2.7-7.7); Neutrophil % 67.1 % (47-70); POSITIVE COUNT NO; POSITIVE DIFFERENTIAL NO; POSITIVE MORPHOLOGY NO; Platelet Count 691 K/mm3 (150-450); RBC Distribution Width CV 14.7 % (11.6-14.6); RBC Distribution Width SD 48.7 fl (35.1-43.9); Red Blood Count 3.08 M/mm3 (4.2-5.4); White Blood Count 11.1 K/mm3 (4.4-11.0)
--- NOTE | 2017-07-24 14:38 | PCM.RU.DC ---
Rehab Discharge Summary DATE OF ADMISSION: 07/10/17 DATE OF DISCHARGE: 07/22/17 - Rehab Diagnosis Left Hip Fracture Discharge Diet: No Restrictions Discharge Activity: May Not Drive - Until cleared by surgeon, May not drive while taking narcotic pain medications., May Shower, Use Walker, - - Do not soak in a Tub Bath until cleared by Surgeon Weight Bearing Status: Weight bearing as tolerated Call your doctor if your incision/area has: Increased Pain/ Swelling, Increased Redness, Foul Smelling Discharge, Swelling at the incision site Call your doctor if you observe: Fever of 101 or Higher, Coldness, Increased Pain, Numbness or Tingling, Change in Color, Inability to urinate, Inability to have a bowel movement, Using more than one pad per hour, Shortness of breath, Dizziness, Fainting spells, Swelling in the ankles, Chest pain, Prolonged hiccoughing, Increased palpitations (irregular heartbeat), Calf discomfort, Uncontrolled pain Home Medications: Medications to take at Discharge Aspirin E.C. [Ecotrin] 81 mg PO QHS 10/05/15 Levothyroxine [Synthroid] 25 mcg PO DAILY 10/05/15 Lisinopril [Zestril] 20 mg PO QHS 10/05/15 Multivitamins,Therapeutic [Multivitamin] 1 tab PO DAILY 10/05/15 Venlafaxine HCl [Effexor] 75 mg PO QHS 10/05/15 cholecalciferol (vitamin D3) 1,000 unit tablet 2,000 unit PO BID tab 06/06/17 gabapentin 300 mg capsule 300 mg PO QHS cap 06/08/17 Vitamin B Complex/Folic Acid [Super B Maxi Complex Caplet] 1 tab PO DAILY 07/07/17 Primary Care Physician: Melisa Lucero DO [Primary Care Provider] - Please follow up with your Primary Care Physician in: 2 weeks Please Follow Up With: Dr Babak Lantigua Disposition: Home - outpatient Physical therapy Minutes spent on discharge:: 35 Patient Condition:: Good Rehab Course The patient is a 77 year old right handed Female, who is admitted to the acute rehab unit for rehabilitation after a mechanical fall outside her home, sustaining a left comminuted hip fracture. The patient was taken to the OR and had ORIF on the by Dr. Cain. Patient's course was complicated by some confusion that occurred shortly after administration of [place] for pain. Her confusion has since resolved and she is back at baseline. She had recent work-up for anticipated Left knee surgery in October. A 2D-echocardiogram was done on 06/18/17, which showed a preserved LV function and mild MR, trivial TR, and mitral and aortic root calcification. A CTA of her neck showed stable 50% bilateral Internal carotid artery stenosis. She lives with her in a single story home with two steps to get into the interior. She was completely functional able to do her own ADLs, and is admitted to the rehab unit in order to restore her to her previous level of functional independence. With Physical therapy, the patient is able to walk greater than 200 feet at standby assist with the use of a wheeled walker. She is able to go up and down 3 steps using 2 hand rails at minimal assist to contact guard. With Occupational therapy, she is able to do all her own personal care of her upper body. With the aid of adaptive equipment she is able to do her lower body's personal care with minimal assistance. With Nursing her timothy where removed on Friday 07/21 prior to her discharge on Sunday. She continued to have scant amount of serosa drainage from the proximal end of the incision. Family training on wound care was done day of discharge by the nursing staff. Her pain which had been uncontrolled for most of her stay was well controlled at discharge. She was sent home with prescription for 2 Fentanyl patches and 7 Days of [place] 5mg tabs for break through pain. Her UTI was resolved and she had completed her Antibiotic course four days prior to discharge, she denied any frequency, urgency or pain on urination at discharge. During the course of her stay she was started on Ferrex for Anemia and was discharged home on 325mg TID. She was also sent home with a prescription for Xarelto for DVT prevention, per Ortho request. She will remain on this until 08/10. Per Patient she has all necessary medical equipment at home, will be discharged with a Script for Outpatient Physical therapy. Meaningful Use Info Meaningful Use Diagnoses (Choose all that apply): None applicable
--- NOTE | 2017-07-24 14:49 | DS.PCM_ITS ---
Rehab Discharge Summary DATE OF ADMISSION: 07/10/17 DATE OF DISCHARGE: 07/22/17 - Rehab Diagnosis Left Hip Fracture Discharge Diet: No Restrictions Discharge Activity: May Not Drive - Until cleared by surgeon, May not drive while taking narcotic pain medications., May Shower, Use Walker, - - Do not soak in a Tub Bath until cleared by Surgeon Weight Bearing Status: Weight bearing as tolerated Call your doctor if your incision/area has: Increased Pain/ Swelling, Increased Redness, Foul Smelling Discharge, Swelling at the incision site Call your doctor if you observe: Fever of 101 or Higher, Coldness, Increased Pain, Numbness or Tingling, Change in Color, Inability to urinate, Inability to have a bowel movement, Using more than one pad per hour, Shortness of breath, Dizziness, Fainting spells, Swelling in the ankles, Chest pain, Prolonged hiccoughing, Increased palpitations (irregular heartbeat), Calf discomfort, Uncontrolled pain Home Medications: Medications to take at Discharge Aspirin E.C. [Ecotrin] 81 mg PO QHS 10/05/15 Levothyroxine [Synthroid] 25 mcg PO DAILY 10/05/15 Lisinopril [Zestril] 20 mg PO QHS 10/05/15 Multivitamins,Therapeutic [Multivitamin] 1 tab PO DAILY 10/05/15 Venlafaxine HCl [Effexor] 75 mg PO QHS 10/05/15 cholecalciferol (vitamin D3) 1,000 unit tablet 2,000 unit PO BID tab 06/06/17 gabapentin 300 mg capsule 300 mg PO QHS cap 06/08/17 Vitamin B Complex/Folic Acid [Super B Maxi Complex Caplet] 1 tab PO DAILY Primary Care Physician: Melisa Lucero DO [Primary Care Provider] - Please follow up with your Primary Care Physician in: 2 weeks Please Follow Up With: Dr Babak Lantigua Disposition: Home - outpatient Physical therapy Minutes spent on discharge:: 35 Patient Condition:: Good Rehab Course The patient is a 77 year old right handed Female, who is admitted to the acute rehab unit for rehabilitation after a mechanical fall outside her home, sustaining a left comminuted hip fracture. The patient was taken to the OR and had ORIF on the by Dr. Cain. Patient's course was complicated by some confusion that occurred shortly after administration of [place] for pain. Her confusion has since resolved and she is back at baseline. She had recent work- up for anticipated Left knee surgery in October. A 2D-echocardiogram was done on 06/18/17, which showed a preserved LV function and mild MR, trivial TR, and mitral and aortic root calcification. A CTA of her neck showed stable 50% bilateral Internal carotid artery stenosis. She lives with her in a single story home with two steps to get into the interior. She was completely functional able to do her own ADLs, and is admitted to the rehab unit in order to restore her to her previous level of functional independence. With Physical therapy, the patient is able to walk greater than 200 feet at standby assist with the use of a wheeled walker. She is able to go up and down 3 steps using 2 hand rails at minimal assist to contact guard. With Occupational therapy, she is able to do all her own personal care of her upper body. With the aid of adaptive equipment she is able to do her lower body's personal care with minimal assistance. With Nursing her timothy where removed on Friday 07/21 prior to her discharge on Sunday. She continued to have scant amount of serosa drainage from the proximal end of the incision. Family training on wound care was done day of discharge by the nursing staff. Her pain which had been uncontrolled for most of her stay was well controlled at discharge. She was sent home with prescription for 2 Fentanyl patches and 7 Days of [place] 5mg tabs for break through pain. Her UTI was resolved and she had completed her Antibiotic course four days prior to discharge, she denied any frequency, urgency or pain on urination at discharge. During the course of her stay she was started on Ferrex for Anemia and was discharged home on 325mg TID. She was also sent home with a prescription for Xarelto for DVT prevention, per Ortho request. She will remain on this until 08/10. Per Patient she has all necessary medical equipment at home, will be discharged with a Script for Outpatient Physical therapy. Meaningful Use Info Meaningful Use Diagnoses (Choose all that apply): None applicable
== END 2017-07-22 11:50 | disposition home or self-care (01) | DRG 560 ==
PROVIDERS: Nurse Practitioner Acute Care; Admitting Provider Psychiatry & Neurology Neurology; Family Provider Internal Medicine; PCP Internal Medicine; Visit Provider Psychiatry & Neurology Neurology
DX: S72.142D Displaced intertrochanteric fracture of left femur, subsequent encounter for closed fracture with routine healing (principal); D62 Acute posthemorrhagic anemia; N39.0 Urinary tract infection, site not specified; W18.39XD Other fall on same level, subsequent encounter; K59.00 Constipation, unspecified; E03.9 Hypothyroidism, unspecified; E78.5 Hyperlipidemia, unspecified; I10 Essential (primary) hypertension; F32.9 Major depressive disorder, single episode, unspecified
CPT/HCPCS: 36415; 71046; 80053; 81001; 83735; 84100; 84443; 85014; 85018; 85025; 85027; 87077; 87086; 87088; 87186; 97110; 97112; 97116; 97162; 97166; 97530; 97535; 97802; J7030; A4216

== ENCOUNTER → 2017-11-01 12:08 | Outpatient (CLI) | payer MEDICARE, OTHER, SELFPAY ==
[2017-11-01 14:39] LABS: ALB/GLOB Ratio 1.1 RATIO (0.9-2.4); AST(SGOT) 17 U/L (15-37); Alanine Aminotransfer ALT/SGPT 26 U/L (13-56); Albumin, Serum 3.9 g/dL (3.2-5.0); Alkaline Phosphatase 109 U/L (45-117); Anion Gap 11 (5-15); BUN 37 mg/dL (7-18); BUN/Creat Ratio 33.6 RATIO (10-20); Calcium,Total 9.8 mg/dL (8.5-10.1); Chloride 103 mmol/L (98-107); EST Glomerular Filtration Rate 51 mL/min (>60); Est Glom Filt Rate - Afr Amer 62 mL/min (>60); Globulin 3.7 g/dL (2.2-4.2); Glucose 133 mg/dL (74-106); Potassium 4.5 mmol/L (3.5-5.1); Protein, Total 7.6 g/dL (6.4-8.2); Sodium Level 141 mmol/L (136-145); Thyroid Stim Hormone (TSH) 1.82 uIU/mL (0.358-3.74)
== END ==
PROVIDERS: Family Provider Internal Medicine; PCP Internal Medicine; Visit Provider Internal Medicine Endocrinology, Diabetes & Metabolism
DX: E04.0 Nontoxic diffuse goiter (principal); E55.9 Vitamin D deficiency, unspecified
CPT/HCPCS: 36415; 80053; 82306; 84443

== ENCOUNTER → 2017-11-27 13:14 | Outpatient (CLI) | payer MEDICARE, OTHER, SELFPAY ==
[2017-11-27 13:18] VITALS: BP 126/64; PULSE 89; RESP 18; TEMP 36.4; O2SAT 98; BMI 25.0
[2017-11-27] MEDS: DENOSUMAB 60 MG/ML ML SQ (13:27)
== END ==
PROVIDERS: Family Provider Internal Medicine; PCP Internal Medicine; Referring Provider Internal Medicine Endocrinology, Diabetes & Metabolism; Visit Provider Internal Medicine Endocrinology, Diabetes & Metabolism
DX: M81.0 Age-related osteoporosis without current pathological fracture (principal)
CPT/HCPCS: 96372; J0897

== ENCOUNTER → 2017-12-21 11:56 | Outpatient (CLI) | payer MEDICARE, OTHER, SELFPAY ==
--- NOTE | 2017-12-21 12:00 | BI_ITS ---
MAMMOGRAPHY - BILATERAL SCREENING REASON FOR EXAM: Female, 77 years old. Routine annual screening examination. PERTINENT HISTORY: Non-contributory. Bilateral breast reduction. TECHNIQUE: Digital bilateral breast ozzy (3D mammographic acquisition) in the CC and MLO projections. 2-D mediolateral oblique (MLO) and craniocaudad (CC) views of both breasts were obtained. CAD: Full Field Digital Mammography with Computer Added Detection was performed. COMPARISON: Comparison is made with prior examination dated December 06, 2016 and December 06, 2015. FINDINGS: Breast Composition: There are scattered areas of fibroglandular density. There are no dominant masses or suspicious calcifications. Once again, a tissue clip marker is seen in the upper central portion of the left breast as well as in the mid medial portion of the right breast. No other significant abnormalities are identified. There has been no significant change since the prior study. BI/SCREENING MAMM (CAD), BILAT IMPRESSION: Stable bilateral screening mammogram. Yearly follow-up mammogram recommended. (A) ASSESSMENT CATEGORY: BIRADS Category 1: Negative. A letter regarding these results will be sent to the patient by the facility within 30 days. Approximately 10% of breast cancers are not detected by mammography. A normal mammogram should not delay biopsy of a clinically suspicious abnormality. [id number] Electronically Signed: Wilbert Garcia MD at 13:01 EST Tel [phone], Service support ,
== END ==
PROVIDERS: Family Provider Internal Medicine; PCP Internal Medicine; Visit Provider Internal Medicine
DX: Z12.31 Encounter for screening mammogram for malignant neoplasm of breast (principal)
CPT/HCPCS: 77063; 77067

== ENCOUNTER → 2018-06-13 11:16 | Outpatient (CLI) | payer MEDICARE, OTHER, SELFPAY ==
[2017-11-27 13:18] VITALS: BMI 25.0
[2018-06-13 14:23] LABS: Vitamin D,25 Hydroxy 67.1 ng/mL (29.95-100.01)
[2018-06-13 14:25] LABS: ALB/GLOB Ratio 1.1 RATIO (0.9-2.4); AST(SGOT) 22 U/L (15-37); Alanine Aminotransfer ALT/SGPT 23 U/L (13-56); Alkaline Phosphatase 81 U/L (45-117); Anion Gap 9 (5-15); BUN 23 mg/dL (7-18); BUN/Creat Ratio 24.7 RATIO (10-20); CPK Total, Creatine Kinase 132 U/L (26-192); Calcium,Total 9.4 mg/dL (8.5-10.1); Chloride 110 mmol/L (98-107); Creatinine, Serum 0.93 mg/dL (0.55-1.02); EST Glomerular Filtration Rate 62 mL/min (>60); Est Glom Filt Rate - Afr Amer 75 mL/min (>60); Globulin 3.5 g/dL (2.2-4.2); Glucose 95 mg/dL (74-106); Potassium 4.6 mmol/L (3.5-5.1); Protein, Total 7.5 g/dL (6.4-8.2); Sodium Level 143 mmol/L (136-145); Thyroid Stim Hormone (TSH) 2.22 uIU/mL (0.358-3.74)
[2018-06-13 14:40] LABS: PTHIN 50.6 pg/mL (18.4-80.1)
== END ==
PROVIDERS: Family Provider Internal Medicine; PCP Internal Medicine; Referring Provider Internal Medicine Endocrinology, Diabetes & Metabolism; Visit Provider Internal Medicine Endocrinology, Diabetes & Metabolism
DX: E03.8 Other specified hypothyroidism (principal); E55.9 Vitamin D deficiency, unspecified; M81.0 Age-related osteoporosis without current pathological fracture
CPT/HCPCS: 36415; 80053; 82306; 82550; 83970; 84443

== ENCOUNTER → 2018-06-27 11:18 | Outpatient (CLI) | payer MEDICARE, OTHER, SELFPAY ==
[2018-06-27 10:31] VITALS: BMI 24.4
[2018-06-27 12:22] LABS: Absolute Lymphocyte Count 2.08 X10^3/ul (0.83-4.51); Absolute Neutrophil Count 3.1 X10^3/uL (2.0-7.7); Basophil# 0.07 X10^3/uL; Basophil% 1.1 % (0-1); Eosinophil# 0.34 X10^3/uL; Eosinophils% 5.5 % (0-5); Hematocrit 36.8 % (37-47); Hemoglobin 11.9 g/dl (12.0-15.0); Lymphocyte # 2.08 X10^3/ul (4.0); Lymphocyte % 33.4 % (19-41); Mean Corp Hgb Conc 32.3 g/gl (32-36); Mean Corpuscular Hgb 30.3 pg (27.0-32.0); Mean Corpuscular Volume 93.6 fL (81-99); Mean Platelet Vol. 10.2 fl (6.2-12.0); Monocyte# 0.65 X10^3/uL; Monocyte% 10.4 % (0-10); Neutrophil # 3.08 X10^3/uL (2.7-7.7); Neutrophil % 49.4 % (47-70); Platelet Count 303 K/mm3 (150-450); RBC Distribution Width CV 13.4 % (11.6-14.6); Red Blood Count 3.93 M/mm3 (4.2-5.4); White Blood Count 6.2 K/mm3 (4.4-11.0)
[2018-06-27 12:24] LABS: POSITIVE COUNT NO; POSITIVE DIFFERENTIAL NO; POSITIVE MORPHOLOGY NO
[2018-06-27 12:57] LABS: ALB/GLOB Ratio 1.2 RATIO (0.9-2.4); Albumin, Serum 4.2 g/dL (3.2-5.0); BUN 35 mg/dL (7-18); EST Glomerular Filtration Rate 57 mL/min (>60); Est Glom Filt Rate - Afr Amer 69 mL/min (>60); Globulin 3.4 g/dL (2.2-4.2); Glucose 110 mg/dL (74-106); Protein, Total 7.6 g/dL (6.4-8.2)
[2018-06-27 12:58] LABS: AST(SGOT) 22 U/L (15-37); Alanine Aminotransfer ALT/SGPT 21 U/L (13-56); Alkaline Phosphatase 82 U/L (45-117); Anion Gap 4 (5-15); Chloride 107 mmol/L (98-107); Potassium 5.1 mmol/L (3.5-5.1); Sodium Level 138 mmol/L (136-145)
[2018-06-27 13:03] LABS: Microalbumin,Random Urine 15.9 mg/L (NO RANGE EST.); Microalbumin:Creatinine Ratio 42.4 mg/g CRE (<30 mg/g CRE)
[2018-06-29 12:06] LABS: CHOLESTEROL TOTAL 258 mg/dL (100-199); HDL-C 60 mg/dL (>39); HDL-P TOTAL 45.7 umol/L (>=30.5); SMALL LDL-P 1079 nmol/L (<=527); TRIGLYCERIDES 217 mg/dL (0-149)
[2018-06-29 15:03] LABS: INSULIN RESISTANCE SCORE 49 (<=45); LDL SIZE 20.8 nm (>20.5); LDL-C 155 mg/dL (0-99); LDL-P 2048 nmol/L (<1000)
== END ==
PROVIDERS: Family Provider Internal Medicine; PCP Internal Medicine; Referring Provider Internal Medicine; Visit Provider Internal Medicine
DX: E78.00 Pure hypercholesterolemia, unspecified (principal); I11.9 Hypertensive heart disease without heart failure
CPT/HCPCS: 36415; 80053; 80061; 82043; 82570; 83704; 85025

== ENCOUNTER → 2018-07-05 12:55 | Outpatient (CLI) | payer MEDICARE, OTHER, SELFPAY ==
[2018-06-27 10:31] VITALS: BMI 24.4
--- NOTE | 2018-07-05 12:57 | ECHOD_ITS ---
Reason For Study: Murmur Procedure This was a 2D Doppler, Color Flow transthoracic echocardiogram. The exam was of adequate technical quality. Exam performed in department. Left Ventricle Normal LV size. Sigmoid septum. Left ventricular systolic function is normal. The estimated ejection fraction is 60 %. There is evidence of diastolic dysfunction. No regional wall motion abnormalities noted. Right Ventricle Normal RV size. Normal systolic function. Atria The left atrium is mildly enlarged. Normal right atrium. No doppler evidence for ASD. Mitral Valve There is mild to moderate mitral annular calcification. Extension of the mitral annular calcification onto the posterior mitral valve leaflet. Mild (1+) mitral valve insufficiency. Tricuspid Valve Normal tricuspid valve. Trivial tricuspid valve insufficiency. Right ventricular systolic pressure estimated to be 25 mmHg. Aortic Valve Trisinus/trileaflet aortic valve. Mild diffuse aortic valve thickening. Pulmonic Valve The pulmonic valve is not well visualized. Great Vessels Mildly dilated aortic root. Calcified aortic root. Pericardium/Pleural No pericardial effusion. MMode/2D Measurements & Calculations LVIDd: 3.0 cm IVSd: 1.6 cm Ao root diam: 4.1 cm LVIDs: 1.6 cm LVPWd: 1.1 cm RVDd: 3.0 cm FS: 46.1 % LAV(MOD-bp): 52.0 ml LA A4 area: 14.8 cm2 LA dimension(2D): 3.0 cm LAV(MOD-bp) Indexed: 34.1 ml/m2 LAV(MOD-sp2): 60.8 ml LAV(MOD-sp4): 39.0 ml RA A4 area: 12.4 cm2 Doppler Measurements & Calculations MV E max antonino: 67.0 cm/sec Lat Peak E' Antonino: 5.5 cm/sec Med Peak E' Antonino: 3.5 cm/sec MV A max antonino: 111.2 cm/sec E/E' lat: 12.2 E/E' med: 19.2 MV E/A: 0.60 Ao V2 max: 125.7 cm/sec LV V1 max: 104.5 cm/sec PA V2 max: 90.4 cm/sec Ao max P.3 mmHg LV V1 max P.4 mmHg TR max antonino: 235.1 cm/sec TR max P.3 mmHg Interpretation Summary Left ventricular systolic function is normal. The estimated ejection fraction is 60 %. Sigmoid septum. The left atrium is mildly enlarged. There is mild to moderate mitral annular calcification. Extension of the mitral annular calcification onto the posterior mitral valve leaflet. Mild (1+) mitral valve insufficiency. Trivial tricuspid valve insufficiency. Mild diffuse aortic valve thickening. Mildly dilated aortic root. Calcified aortic root. Right ventricular systolic pressure estimated to be 25 mmHg. There is evidence of diastolic dysfunction. Ordering Physician: Richie Avila Referring Physician: Richie Avila Performed By: Lin Holcomb, [facility]
== END ==
PROVIDERS: Family Provider Internal Medicine; PCP Internal Medicine; Referring Provider Internal Medicine Cardiovascular Disease; Visit Provider Internal Medicine Cardiovascular Disease
DX: I71.2 Thoracic aortic aneurysm, without rupture (principal)
CPT/HCPCS: 93306

== ENCOUNTER → 2018-09-17 15:10 | Outpatient (CLI) | payer MEDICARE, OTHER, SELFPAY ==
[2018-06-27 10:31] VITALS: BMI 24.4
[2018-09-17 19:04] LABS: ALB/GLOB Ratio 1.1 RATIO (0.9-2.4); AST(SGOT) 22 U/L (15-37); Alanine Aminotransfer ALT/SGPT 23 U/L (13-56); Albumin, Serum 4.2 g/dL (3.2-5.0); Alkaline Phosphatase 106 U/L (45-117); Anion Gap 9 (5-15); BUN 30 mg/dL (7-18); BUN/Creat Ratio 26.8 RATIO (10-20); Calcium,Total 10.4 mg/dL (8.5-10.1); Chloride 103 mmol/L (98-107); Creatinine, Serum 1.12 mg/dL (0.55-1.02); EST Glomerular Filtration Rate 50 mL/min (>60); Est Glom Filt Rate - Afr Amer 61 mL/min (>60); Globulin 3.7 g/dL (2.2-4.2); Glucose 90 mg/dL (74-106); Potassium 4.7 mmol/L (3.5-5.1); Protein, Total 7.9 g/dL (6.4-8.2); Sodium Level 140 mmol/L (136-145); Thyroid Stim Hormone (TSH) 1.59 uIU/mL (0.358-3.74)
== END ==
PROVIDERS: Family Provider Internal Medicine; PCP Internal Medicine; Referring Provider Internal Medicine Endocrinology, Diabetes & Metabolism; Visit Provider Internal Medicine Endocrinology, Diabetes & Metabolism
DX: M81.0 Age-related osteoporosis without current pathological fracture (principal); E03.8 Other specified hypothyroidism
CPT/HCPCS: 36415; 80053; 84443

== ENCOUNTER → 2018-10-01 15:17 | Outpatient (CLI) | payer MEDICARE, OTHER, SELFPAY ==
[2018-06-27 10:31] VITALS: BMI 24.4
[2018-10-01 18:02] LABS: Anion Gap 8 (5-15); BUN 24 mg/dL (7-18); BUN/Creat Ratio 26.8 RATIO (10-20); Calcium,Total 9.8 mg/dL (8.5-10.1); Chloride 102 mmol/L (98-107); EST Glomerular Filtration Rate 65 mL/min (>60); Est Glom Filt Rate - Afr Amer 79 mL/min (>60); Glucose 82 mg/dL (74-106); Potassium 4.5 mmol/L (3.5-5.1); Sodium Level 138 mmol/L (136-145)
== END ==
PROVIDERS: Family Provider Internal Medicine; PCP Internal Medicine; Referring Provider Internal Medicine Endocrinology, Diabetes & Metabolism; Visit Provider Internal Medicine Endocrinology, Diabetes & Metabolism
DX: M81.0 Age-related osteoporosis without current pathological fracture (principal)
CPT/HCPCS: 36415; 80048

== ENCOUNTER → 2018-10-09 13:54 | Outpatient (CLI) | payer MEDICARE, OTHER, SELFPAY ==
[2018-06-27 10:31] VITALS: BMI 24.4
[2018-10-09] MEDS: DENOSUMAB 60 MG/ML ML SQ (14:10)
[2018-10-09 14:14] VITALS: BP 115/79; PULSE 76; RESP 16; TEMP 36.7; BMI 24.4
== END ==
PROVIDERS: Family Provider Internal Medicine; PCP Internal Medicine
DX: M81.0 Age-related osteoporosis without current pathological fracture (principal)
CPT/HCPCS: 96372; J0897

== ENCOUNTER → 2018-12-27 12:13 | Outpatient (CLI) | payer MEDICARE, OTHER, SELFPAY ==
[2018-12-05 11:09] VITALS: BMI 24.4
--- NOTE | 2018-12-27 12:16 | BI_ITS ---
MAMMOGRAPHY - BILATERAL SCREENING REASON FOR EXAM: Female, 78 years old. Routine annual screening examination. PERTINENT HISTORY: Non-contributory. History of prior bilateral breast reduction surgery and bilateral needle biopsies. Chronic inversions of both nipples. TECHNIQUE: Digital bilateral breast radha (3D mammographic acquisition) in the CC and MLO projections. 2-D mediolateral oblique (MLO) and craniocaudad (CC) views of both breasts were obtained. CAD: Full Field Digital Mammography with Computer Added Detection was performed. COMPARISON: Comparison is made with prior study dated December 21, 2017 and December 06, 2016. FINDINGS: Breast Composition: There are scattered areas of fibroglandular density. There are no dominant masses or suspicious calcifications. No other significant abnormalities are identified. There has been no significant change since the prior study. BI/SCREEN MAMM (CAD) W/RADHA BILAT IMPRESSION: Stable bilateral screening mammogram. Yearly follow-up mammogram recommended. (A) ASSESSMENT CATEGORY: BIRADS Category 1: Negative. A letter regarding these results will be sent to the patient by the facility within 30 days. Approximately 10% of breast cancers are not detected by mammography. A normal mammogram should not delay biopsy of a clinically suspicious abnormality. [id number] Electronically Signed: Wilbert Garcia, at 13:17 EST , Service support ,
== END ==
PROVIDERS: Family Provider Internal Medicine; PCP Internal Medicine; Referring Provider Internal Medicine; Visit Provider Internal Medicine
DX: Z12.31 Encounter for screening mammogram for malignant neoplasm of breast (principal)
CPT/HCPCS: 77063; 77067

== ENCOUNTER → 2019-06-25 11:24 | Outpatient (CLI) | payer MEDICARE, OTHER, SELFPAY ==
[2018-12-05 11:09] VITALS: BMI 24.4
[2019-06-25 15:42] LABS: Vitamin D,25 Hydroxy 107.9 ng/mL
[2019-06-25 15:51] LABS: ALB/GLOB Ratio 1.1 RATIO (0.9-2.4); AST(SGOT) 21 U/L (15-37); Alanine Aminotransfer ALT/SGPT 22 U/L (13-56); Albumin, Serum 4.1 g/dL (3.2-5.0); Alkaline Phosphatase 98 U/L (45-117); Anion Gap 9 (5-15); BUN 41 mg/dL (7-18); BUN/Creat Ratio 33.3 RATIO (10-20); Calcium,Total 10.8 mg/dL (8.5-10.1); Chloride 104 mmol/L (98-107); Creatinine, Serum 1.23 mg/dL (0.55-1.02); EST Glomerular Filtration Rate 45 mL/min (>60); Est Glom Filt Rate - Afr Amer 54 mL/min (>60); Globulin 3.7 g/dL (2.2-4.2); Glucose 100 mg/dL (74-106); Potassium 4.9 mmol/L (3.5-5.1); Protein, Total 7.8 g/dL (6.4-8.2); Sodium Level 139 mmol/L (136-145); Thyroid Stim Hormone (TSH) 2.72 uIU/mL (0.358-3.74)
== END ==
PROVIDERS: PCP Internal Medicine; Referring Provider Internal Medicine Endocrinology, Diabetes & Metabolism; Visit Provider Internal Medicine Endocrinology, Diabetes & Metabolism
DX: E03.8 Other specified hypothyroidism (principal); E55.9 Vitamin D deficiency, unspecified; M81.0 Age-related osteoporosis without current pathological fracture
CPT/HCPCS: 36415; 80053; 82306; 84443

== ENCOUNTER → 2019-07-02 12:01 | Outpatient (CLI) | payer MEDICARE, OTHER, SELFPAY ==
[2018-12-05 11:09] VITALS: BMI 24.4
[2019-07-02 15:30] LABS: Anion Gap 7 (5-15); BUN 24 mg/dL (7-18); BUN/Creat Ratio 22.4 RATIO (10-20); Calcium,Total 10.1 mg/dL (8.5-10.1); Chloride 106 mmol/L (98-107); Creatinine, Serum 1.07 mg/dL (0.55-1.02); EST Glomerular Filtration Rate 53 mL/min (>60); Est Glom Filt Rate - Afr Amer 64 mL/min (>60); Glucose 137 mg/dL (74-106); Potassium 4.4 mmol/L (3.5-5.1); Sodium Level 139 mmol/L (136-145)
== END ==
PROVIDERS: PCP Internal Medicine; Referring Provider Internal Medicine Endocrinology, Diabetes & Metabolism; Visit Provider Internal Medicine Endocrinology, Diabetes & Metabolism
DX: E03.8 Other specified hypothyroidism (principal)
CPT/HCPCS: 36415; 80048

== ENCOUNTER → 2019-09-04 12:58 | Outpatient (CLI) | payer MEDICARE, OTHER, SELFPAY ==
[2018-12-05 11:09] VITALS: BMI 24.4
[2019-09-03 11:22] VITALS: BMI 25.4
[2019-09-04 13:00] VITALS: BP 130/70; PULSE 82; RESP 16; TEMP 36.3; O2SAT 96; BMI 25.4
[2019-09-04] MEDS: DENOSUMAB 60 MG/ML SQ (13:18)
== END ==
PROVIDERS: PCP Internal Medicine; Referring Provider Nurse Practitioner Adult Health; Visit Provider Nurse Practitioner Adult Health
DX: M81.0 Age-related osteoporosis without current pathological fracture (principal)
CPT/HCPCS: 96372; J0897

== ENCOUNTER → 2019-09-19 12:53 | Outpatient (CLI) | payer MEDICARE, OTHER, SELFPAY ==
[2019-09-04 13:00] VITALS: BMI 25.4
--- NOTE | 2019-09-19 12:55 | ECHOD_ITS ---
Reason For Study: Thoracic Ao Aneurysm Procedure This was a 2D Doppler, Color Flow transthoracic echocardiogram. Exam performed in department. Left Ventricle Normal LV size. Mild concentric left ventricular hypertrophy. Mid cavitary false tendon noted. Left ventricular systolic function is normal. The estimated ejection fraction is 65 %. Diastolic function is indeterminate. No regional wall motion abnormalities noted. Right Ventricle Normal RV size. Normal systolic function. Atria The left atrium is mildly enlarged. Normal right atrium. No doppler evidence for ASD. Mitral Valve There is moderate mitral annular calcification. Extension of the mitral annular calcification onto the base of the posterior mitral valve leaflet. Mild (1+) mitral valve insufficiency. Tricuspid Valve Normal tricuspid valve. Trivial tricuspid valve insufficiency. Right ventricular systolic pressure estimated to be 27 mmHg. Aortic Valve Trisinus/trileaflet aortic valve. Mild focal aortic valve calcification. Pulmonic Valve The pulmonic valve is not well visualized. Great Vessels Mildly dilated aortic root. Calcified aortic root. Pericardium/Pleural No pericardial effusion. MMode/2D Measurements & Calculations LVIDd: 3.0 cm IVSd: 1.6 cm Ao root diam: 4.2 cm LVIDs: 2.0 cm LVPWd: 1.3 cm RVDd: 3.1 cm FS: 33.2 % LAV(MOD-bp): 40.3 ml LA A4 area: 14.5 cm2 RA A4 area: 11.8 cm2 LAV(MOD-bp) Indexed: 25.9 ml/m2 LAV(MOD-sp2): 45.1 ml LAV(MOD-sp4): 34.3 ml Time Measurements MV dec time: 0.26 sec Doppler Measurements & Calculations MV E max antonino: 94.4 cm/sec Lat Peak E' Antonino: 6.4 cm/sec Med Peak E' Antonino: 4.0 cm/sec MV A max antonino: 97.8 cm/sec E/E' lat: 14.8 E/E' med: 23.8 MV E/A: 0.97 MV V2 max: 106.1 cm/sec MV P1/2t max antonino: 99.7 cm/sec Ao V2 max: 138.2 cm/sec MV max P.5 mmHg MV P1/2t: 90.7 msec Ao max P.6 mmHg MV V2 mean: 48.4 cm/sec MV dec slope: 321.9 cm/sec2 MV mean P.2 mmHg MVA(P1/2t): 2.4 cm2 MV V2 VTI: 40.1 cm LV V1 max: 118.6 cm/sec PA V2 max: 78.0 cm/sec TR max antonino: 242.5 cm/sec LV V1 max P.6 mmHg TR max P.7 mmHg Interpretation Summary Left ventricular systolic function is normal. The estimated ejection fraction is 65 %. Mild concentric left ventricular hypertrophy. Mid cavitary false tendon noted. The left atrium is mildly enlarged. There is moderate mitral annular calcification. Extension of the mitral annular calcification onto the base of the posterior mitral valve leaflet. Mild (1+) mitral valve insufficiency. Trivial tricuspid valve insufficiency. Mild focal aortic valve calcification. Mildly dilated aortic root. Calcified aortic root. Right ventricular systolic pressure estimated to be 27 mmHg. Diastolic function is indeterminate. Ordering Physician: Richie Avila Referring Physician: Melisa Lucero M.D. Performed By: Artur Hsieh RCS
--- NOTE | 2019-09-19 12:55 | CDU_ITS ---
Reason For Study: Carotid artery stenosis Rt. Velocities/BP Lt. Velocities/BP Prox CCA 99.5/6.9 cm/sec. Prox CCA 90/15.2 cm/sec. Mid CCA 87.8/13.4 cm/sec. Mid CCA 75.3/12.6 cm/sec. Dist CCA 68.2/10.8 cm/sec. Dist CCA 70.4/13.9 cm/sec. Bulb 337.7/47.5 cm/sec. Prox ICA 138.1/24.1 cm/sec. Prox ICA 216.9/24.7 cm/sec. Mid ICA 97.2/16 cm/sec. Mid ICA 104.4/21.5 cm/sec. Dist ICA 108.2/20.4 cm/sec. Dist ICA 108.3/22.5 cm/sec. Lt. ICA/CCA = 1.83. Rt. ICA/CCA = 2.47. Prox ECA 303.2/5.1 cm/sec. Prox ECA 368.2/26.6 cm/sec. Lt. Vert. 53.2/12.6 cm/sec. Rt. Vert. 68.1/13.3 cm/sec. Right Extracranial There is intimal thickening but no significant atherosclerotic plaque noted in the right common carotid artery. There is heterogeneous, irregular atherosclerotic plaque noted in the right internal carotid artery. There is heterogeneous, irregular atherosclerotic plaque noted in the right external carotid artery. Antegrade flow is noted in the right vertebral artery. There is heterogeneous, irregular atherosclerotic plaque noted in the right bulb. Left Extracranial There is homogeneous, smooth atherosclerotic plaque noted in the left common carotid artery. There is heterogeneous, irregular atherosclerotic plaque noted in the left internal carotid artery. There is heterogeneous, irregular atherosclerotic plaque noted in the left external carotid artery. Antegrade flow is noted in the left vertebral artery. Procedure Carotid Duplex 45623. Exam performed in department. Interpretation Summary Irregular heterogenous plaque at the right carotid bulb and proximal internal carotid artery. Notably elevated velocity within the right carotid bulb at 330 cm/s flow. This is abnormal for this location. 50 to 69% stenosis right proximal internal carotid >50% stenosis right external caroitid Heterogenous irregular plaque at the proximal left internal and external carotid arteries with 50 to 69% stenosis of the left internal carotid artery >50% stenosis left external carotid Patent and antegrade vertebrals bilaterally Findings suggest progression of disease bilaterally from the previous examination of June 25, 2018 Ordering Physician: Richie Avila Referring Physician: Melisa Lucero M.D. Performed By: Nereida Barnett RVT and Student
== END ==
PROVIDERS: PCP Internal Medicine; Referring Provider Internal Medicine Cardiovascular Disease; Visit Provider Internal Medicine Cardiovascular Disease
DX: I71.2 Thoracic aortic aneurysm, without rupture (principal); I65.21 Occlusion and stenosis of right carotid artery
CPT/HCPCS: 93306; 93880

== ENCOUNTER → 2019-10-07 14:18 | Outpatient (CLI) | payer MEDICARE, OTHER, SELFPAY ==
[2019-10-07 13:28] VITALS: BMI 25.0
[2019-10-07 14:50] LABS: Anion Gap 4 (5-15); BUN 33 mg/dL (7-18); Calcium,Total 9.6 mg/dL (8.5-10.1); Chloride 105 mmol/L (98-107); Creatinine, Serum 0.97 mg/dL (0.55-1.02); EST Glomerular Filtration Rate 59 mL/min (>60); Est Glom Filt Rate - Afr Amer 71 mL/min (>60); Glucose 92 mg/dL (74-106); Potassium 4.5 mmol/L (3.5-5.1); Sodium Level 137 mmol/L (136-145)
== END ==
PROVIDERS: PCP Internal Medicine; Referring Provider Surgery; Visit Provider Surgery
DX: I65.21 Occlusion and stenosis of right carotid artery (principal)
CPT/HCPCS: 36415; 80048

== ENCOUNTER → 2019-10-13 12:53 | Outpatient (CLI) | payer MEDICARE, OTHER, SELFPAY ==
[2019-10-07 13:28] VITALS: BMI 25.0
--- NOTE | 2019-10-13 12:54 | CT_ITS ---
STUDY: CTA HEAD AND NECK WITH CONTRAST REASON FOR EXAM: Female, 79 years old. OCCLUSION AND STENOSIS RIGHT CAROTID ARTERY RADIATION DOSAGE (If Supplied By Facility): CTDIvol = ( 34.41 ) mGy, DLP = ( 1400.32 ) mGycm TECHNIQUE: CT angiography was performed with a multi-detector CT scanner. Data acquisition was obtained from the skull base through the vertex following intravenous administration of IV 100mL Isovue-370. MIP images were reconstructed from the axial data set. Post-processing of the angiographic images was performed, with multiplanar reformation and 3D reconstruction. Individualized dose optimization techniques were used for this CT. COMPARISON: Comparison is made with prior study dated 10/01/2012. FINDINGS: Normal bilateral petrous carotid arteries. Normal right cavernous carotid artery with a normal supraclinoid bifurcation. Normal left cavernous carotid artery with a normal supraclinoid bifurcation. Normal right A1 segments of the anterior cerebral artery. Normal left A1 segments of the anterior cerebral artery. Normal intact anterior communicating artery (ACOM). Normal bilateral A2 segments of the anterior cerebral arteries. Normal right M1 and M2 segments of the middle cerebral arteries, with a normal M1 bifurcation. Normal left M1 and M2 segments of the middle cerebral arteries, with a normal M1 bifurcation. Normal right posterior communicating artery (PCOM). Normal left posterior communicating artery (PCOM). Normal bilateral vertebral arteries. Normal basilar artery with a normal basilar bifurcation. The visualized bilateral superior cerebellar (SCA) arteries are normal. Normal bilateral P1, P2 and visualized P3 segments of the posterior cerebral arteries. There is no demonstrated aneurysm of the lower [place]. There is no demonstrated abnormality of the visualized brain. AORTIC ARCH: There is atherosclerotic calcific plaque formation of the aortic arch and great vessels arising from the aortic arch, without a hemodynamically significant stenosis. There is a normal origin of the brachiocephalic, left common carotid, and left subclavian arteries. RIGHT CAROTID ARTERIES: Normal right common carotid artery (CCA). Normal right common carotid bulb. There is mild soft plaque formation of the origin of the right internal carotid artery with less than 50% cross sectional diameter stenosis. Normal visualized cervical portion of the right internal carotid artery. Normal origin of the right external carotid artery (ECA). LEFT CAROTID ARTERIES: Normal left common carotid artery (CCA). Normal left common carotid bulb. Once again, there is evidence of bilateral calcified and noncalcified plaque at the origin of the origin of the left internal carotid artery with less than 50% cross sectional diameter stenosis. Normal visualized cervical portion of the left internal carotid artery. There is moderate atherosclerotic plaque formation of the origin of the left external carotid artery with an estimated stenosis of 50-69% stenosis. VERTEBRAL ARTERIES: There is enhancement within the bilateral vertebral arteries with a small right vertebral artery, and a dominant left vertebral artery. CT/CTA Head AND Neck W/ Contrast IMPRESSION: Soft plaque at the origin of the right internal carotid artery causing less than 50% narrowing. Atherosclerotic calcific plaque at the origin of the left internal carotid artery causing approximately 50% narrowing. Electronically Signed: Wilbert Garcia, at 8:57 EDT , Service support ,
[2019-10-13 13:26] VITALS: BP 163/65; PULSE 73; RESP 14; TEMP 37.1; O2SAT 97; BMI 25.4
[2019-10-13 15:50] VITALS: BP 173/58; PULSE 80; RESP 14; O2SAT 96
== END ==
PROVIDERS: PCP Internal Medicine; Referring Provider Surgery; Visit Provider Surgery
DX: R79.9 Abnormal finding of blood chemistry, unspecified (principal)
CPT/HCPCS: 70496; 70498; J7040; Q9967

== ENCOUNTER → 2019-12-11 09:40 | Outpatient (CLI) | payer MEDICARE, OTHER, SELFPAY ==
[2019-10-24 06:42] VITALS: BMI 25.4
[2019-12-11 10:07] LABS: Potassium 4.6 mmol/L (3.5-5.1)
== END ==
PROVIDERS: PCP Internal Medicine; Referring Provider Internal Medicine; Visit Provider Internal Medicine
DX: E87.5 Hyperkalemia (principal)
CPT/HCPCS: 36415; 84132

== ENCOUNTER → 2020-01-06 13:07 | Outpatient (CLI) | payer MEDICARE, OTHER, SELFPAY ==
[2019-10-24 06:42] VITALS: BMI 25.4
[2019-12-25 14:18] VITALS: BMI 25.7
--- NOTE | 2020-01-06 13:09 | BI_ITS ---
MAMMOGRAPHY - BILATERAL SCREENING REASON FOR EXAM: Female, 79 years old. Routine annual screening examination. PERTINENT HISTORY: Bilateral breast reduction TECHNIQUE: Digital bilateral breast radha (3D mammographic acquisition) in the CC and MLO projections. 2-D mediolateral oblique (MLO) and craniocaudad (CC) views of both breasts were obtained. CAD: Full Field Digital Mammography with Computer Added Detection was performed. COMPARISON: 12/27/2018 FINDINGS: Breast Composition: Fatty There are no dominant masses or suspicious calcifications. No other significant abnormalities are identified. BI/SCREEN MAMM (CAD) W/RADHA BILAT IMPRESSION: Stable bilateral screening mammogram. Yearly follow-up mammogram recommended. (A) ASSESSMENT CATEGORY: BIRADS Category 1: Negative. A letter regarding these results will be sent to the patient by the facility within 30 days. Approximately 10% of breast cancers are not detected by mammography. A normal mammogram should not delay biopsy of a clinically suspicious abnormality. [id number] Electronically Signed: Yovanny Balbuena, at 10:16 EST Tel , Service support ,
== END ==
PROVIDERS: PCP Internal Medicine; Referring Provider Internal Medicine; Visit Provider Internal Medicine
DX: Z12.31 Encounter for screening mammogram for malignant neoplasm of breast (principal)
CPT/HCPCS: 77063; 77067

== ENCOUNTER → 2020-06-21 13:37 | Outpatient (CLI) | payer MEDICARE, OTHER, SELFPAY ==
[2019-12-25 14:18] VITALS: BMI 25.7
[2020-06-21 15:53] LABS: ALB/GLOB Ratio 1.1 RATIO (0.9-2.4); AST(SGOT) 19 U/L (15-37); Alanine Aminotransfer ALT/SGPT 21 U/L (13-56); Alkaline Phosphatase 92 U/L (45-117); Anion Gap 7 (5-15); BUN 35 mg/dL (7-18); BUN/Creat Ratio 30.7 RATIO (10-20); Calcium,Total 9.9 mg/dL (8.5-10.1); Chloride 104 mmol/L (98-107); Creatinine, Serum 1.14 mg/dL (0.55-1.02); EST Glomerular Filtration Rate 49 mL/min (>60); Est Glom Filt Rate - Afr Amer 59 mL/min (>60); Globulin 3.6 g/dL (2.2-4.2); Glucose 98 mg/dL (74-106); Potassium 4.4 mmol/L (3.5-5.1); Protein, Total 7.6 g/dL (6.4-8.2); Sodium Level 137 mmol/L (136-145); Thyroid Stim Hormone (TSH) 2.06 uIU/mL (0.358-3.74)
[2020-06-21 17:59] LABS: Vitamin D,25 Hydroxy 48.1 ng/mL
== END ==
PROVIDERS: PCP Internal Medicine; Referring Provider Internal Medicine Endocrinology, Diabetes & Metabolism; Visit Provider Internal Medicine Endocrinology, Diabetes & Metabolism
DX: E03.8 Other specified hypothyroidism (principal); E55.9 Vitamin D deficiency, unspecified
CPT/HCPCS: 36415; 80053; 82306; 84443

== ENCOUNTER → 2020-07-22 16:18 | Outpatient (CLI) | payer MEDICARE, OTHER, SELFPAY ==
[2019-12-25 14:18] VITALS: BMI 25.7
--- NOTE | 2020-07-22 16:37 | MRI_ITS ---
STUDY: MRI RIGHT ANKLE WITHOUT CONTRAST REASON FOR EXAM: Pain and swelling of right foot and ankle for more than 2 years, difficulty standing and walking. TECHNIQUE: Standardized fat and water weighted pulse sequences were obtained in all 3 orthogonal planes. COMPARISON: None. FINDINGS: There is edema in the subcutis adipose space. There is a very small volume of fluid in the submalleolar posterior tibialis tendon sheath (inversion recovery sagittal image 17). The posterior tibialis tendon is morphologically normal. Normal flexor digitorum longus tendon. Normal flexor hallucis longus tendon. There is a very small volume of fluid in the peroneal tendon sheath distal to the lateral malleolus (inversion recovery sagittal image 5). The peroneus longus and brevis tendons are morphologically normal. Normal tibialis anterior tendon. Normal extensor hallucis longus tendon. Normal extensor digitorum longus tendons. Normal Achilles tendon and teno-osseous insertion. There is mild edema in Kager''s fat triangle (inversion recovery sagittal images 9, 10). Normal plantar fascia. Normal plantar calcaneal tubercles. Normal intrinsic muscles of the rearfoot. Normal distal tibiofibular syndesmotic ligamentous complex. Normal lateral ligamentous complex. There is a ganglion cyst dorsal to the distal talus/talonavicular joint and extending into the sinus tarsi (inversion recovery sagittal images 10-12) measuring 1.3 x 2.2 cm (AP x length). Normal deltoid ligamentous complexes. Normal plantar calcaneonavicular (spring) ligament. Normal tibiotalar articulation. Normal talar dome. There is a small posterior subtalar joint effusion (inversion recovery sagittal images 8, 9). Normal talonavicular articulation. Normal calcaneocuboid articulation. Normal navicular-cuneiform articulations. There is arthrosis of the first tarsometatarsal articulation with chondral thinning and subchondral cystic change/bone edema of the distal medial cuneiform (inversion recovery sagittal images 15, 16). There is arthrosis of the second tarsometatarsal articulation with chondral thinning and subchondral cystic change/bone edema of the middle cuneiform and second metatarsal base (inversion recovery sagittal images 12, 13). There is arthrosis of the third tarsometatarsal articulation with chondral thinning and mild subchondral cystic change/bone edema of the distal lateral cuneiform and third metatarsal base (inversion recovery sagittal images 9, 10). Unremarkable fourth and fifth tarsometatarsal articulations. Normal Lisfranc ligament. 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 Very mild posterior tibialis tenosynovitis Very mild peroneal tenosynovitis. Ganglion cyst dorsal to the distal talus/talonavicular joint extending into the sinus tarsi. Mild edema in Kager''s fat triangle. Small posterior subtalar joint effusion. Electronically Signed: Arnoldo Zamora MD at 10:26 EDT Tel , Service support ,
--- NOTE | 2020-07-22 16:37 | MRI_ITS ---
STUDY: MRI RIGHT FOREFOOT WITHOUT CONTRAST REASON FOR EXAM: Pain and swelling of right foot and ankle for more than 2 years, difficulty standing and walking, evaluate for intermetatarsal neuroma. TECHNIQUE: Standardized fat and water weighted pulse sequences were obtained in all 3 orthogonal planes. COMPARISON: None. FINDINGS: Normal metatarsophalangeal joint of the hallux. Normal tibial and fibular sesamoids, with normal sesamoids-first metatarsal articulations. Normal interphalangeal joint of the hallux. Normal proximal and distal phalanges of the great toe. Normal medial and lateral heads of the flexor hallucis brevis tendons. Normal flexor and extensor hallucis longus tendons. Normal second through fifth metatarsophalangeal (MTP) joints. Normal interphalangeal joints of the second through fifth toes. Normal proximal, middle and distal phalanges of the second through fifth toes. There is soft tissue fullness at the plantar aspect of the second webspace (T1 series 6 image 13) measuring 0.35 cm in transverse dimension. There is soft tissue fullness at the plantar aspect of the third webspace (T1 series 6 image 14) measuring 0.3 cm in transverse dimension. Normal flexor and extensor tendons of the second through fifth toes. Normal distal metatarsals. The arthrosis with associated bone edema of the first through third tarsometatarsal articulations as described on the MRI ankle report. Normal intrinsic muscles of the forefoot. There is mild edema in the dorsal subcutis adipose space. There is a pressure lesion in the subcutis adipose space plantar to the first metatarsophalangeal joint (T1 series 6 images 15-17). 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 Pressure lesion in the subcutis adipose space plantar to the first metatarsophalangeal joint. Electronically Signed: Arnoldo Zamora MD at 10:22 EDT Tel , Service support ,
== END ==
PROVIDERS: PCP Internal Medicine; Referring Provider Podiatrist; Visit Provider Podiatrist
DX: M19.071 Primary osteoarthritis, right ankle and foot (principal); G57.81 Other specified mononeuropathies of right lower limb
CPT/HCPCS: 73718; 73721

== ENCOUNTER → 2020-09-06 10:21 | Outpatient (CLI) | payer MEDICARE, OTHER, SELFPAY ==
[2019-12-25 14:18] VITALS: BMI 25.7
[2020-09-06 12:42] LABS: ALB/GLOB Ratio 1.1 RATIO (0.9-2.4); AST(SGOT) 17 U/L (15-37); Alanine Aminotransfer ALT/SGPT 26 U/L (13-56); Albumin, Serum 4.1 g/dL (3.2-5.0); Alkaline Phosphatase 94 U/L (45-117); Anion Gap 5 (5-15); BUN 34 mg/dL (7-18); BUN/Creat Ratio 33.7 RATIO (10-20); Calcium,Total 9.8 mg/dL (8.5-10.1); Chloride 107 mmol/L (98-107); Creatinine, Serum 1.01 mg/dL (0.55-1.02); EST Glomerular Filtration Rate 56 mL/min (>60); Est Glom Filt Rate - Afr Amer 68 mL/min (>60); Globulin 3.7 g/dL (2.2-4.2); Glucose 96 mg/dL (74-106); Potassium 4.8 mmol/L (3.5-5.1); Protein, Total 7.8 g/dL (6.4-8.2); Sodium Level 138 mmol/L (136-145)
== END ==
PROVIDERS: PCP Internal Medicine; Referring Provider Nurse Practitioner Adult Health; Visit Provider Nurse Practitioner Adult Health
DX: M81.0 Age-related osteoporosis without current pathological fracture (principal)
CPT/HCPCS: 36415; 80053

== ENCOUNTER → 2020-09-10 09:53 | Outpatient (CLI) | payer MEDICARE, OTHER, SELFPAY ==
[2019-12-25 14:18] VITALS: BMI 25.7
--- NOTE | 2020-09-10 09:58 | RAD_ITS ---
STUDY: AIR-CONTRAST BARIUM SWALLOW REASON FOR EXAM: Female, 80 years old. DYSPHAGIA RADIATION DOSAGE (If Supplied By Facility): CTDIvol = ( ) mGy, DLP = ( ) mGycm. Individualized dose optimization techniques were used for this CT.? FLUOROSCOPY TIME (if supplied): ( 1:07 ) minutes/seconds TECHNIQUE: Air-contrast COMPARISON: No recent studies FINDINGS: Swallowing was initiated normally. No nasopharyngeal reflux or aspiration. There was however persistent pooling of contrast within the piriform sinuses. No Zenker''s diverticulum but there are prominent anterior spurs in the lower C-spine impinging upon the posterior esophagus. There is normal peristaltic activity in the proximal and mid esophagus. The distal esophagus however demonstrates multiple tertiary contractions with intraesophageal reflux. There was also evidence of GE reflux. No evidence of a hiatal hernia. 13 mm barium pill passed through the esophagus without difficulty No evidence of stricture, mass or ulceration within the esophagus RAD/Esophagus Dual Contrast IMPRESSION: Presbyesophagus with intraesophageal and GE reflux Electronically Signed: Rohit Lujan MD at 10:48 EDT , Service support ,
== END ==
PROVIDERS: PCP Internal Medicine; Referring Provider Internal Medicine Gastroenterology; Visit Provider Internal Medicine Gastroenterology
DX: R13.10 Dysphagia, unspecified (principal)
CPT/HCPCS: 74221

== ENCOUNTER → 2020-09-24 12:57 | Outpatient (CLI) | payer MEDICARE, OTHER, SELFPAY ==
[2019-12-25 14:18] VITALS: BMI 25.7
[2020-09-24] MEDS: Zoledronic Acid 5 MG 100 ML 300 MG IV (13:14)
[2020-09-24] MEDS: 0.9% NaCl Peripheral Flush Adult/Peds IV (13:14)
[2020-09-24 13:21] VITALS: BP 117/67; PULSE 69; RESP 16; TEMP 36.4; O2SAT 95; BMI 25.7
== END ==
PROVIDERS: PCP Internal Medicine; Referring Provider Internal Medicine Endocrinology, Diabetes & Metabolism; Visit Provider Internal Medicine Endocrinology, Diabetes & Metabolism
DX: M81.0 Age-related osteoporosis without current pathological fracture (principal)
CPT/HCPCS: 96365; A4216; J3489

== ENCOUNTER → 2020-10-04 15:10 | Outpatient (CLI) | payer MEDICARE, OTHER, SELFPAY ==
--- NOTE | 2020-10-04 15:14 | RAD_ITS ---
STUDY: X-RAY CHEST REASON FOR EXAM: Female, 80 years old. Chest pain and cough TECHNIQUE: PA and lateral views of the chest. COMPARISON: None. FINDINGS: There are interstitial changes of the lungs. There is no demonstrated pleural abnormality. Normal size heart. Normal mediastinum and dede. Normal visualized pulmonary arteries. There is atherosclerotic calcification of the aortic arch with tortuosity. There are diffuse degenerative changes of the visualized thoracic spine. There is degenerative osteoarthritis of the bilateral shoulders. There is no demonstrated abnormality of the visualized soft tissue structures of the upper abdomen. RAD/Chest PA and Lateral IMPRESSION: Chronic interstitial changes, no superimposed acute pulmonary process Electronically Signed: Rohit Lujan MD at 17:07 EDT , Service support ,
--- NOTE | 2020-10-04 15:14 | RAD_ITS ---
STUDY: X-RAY STERNUM REASON FOR EXAM: Female, 80 years old. CHEST WALL PAIN TECHNIQUE: 3 view(s) of the sternum were obtained. COMPARISON: None. FINDINGS: Normal bilateral sternoclavicular articulations. Normal manubrium. Normal sternomanubrial joint. Normal sternal body and xiphoid process. There is no demonstrated fracture of the sternum. Normal visualized anterior ribs. Normal visualized lungs. The soft tissue structures are unremarkable. RAD/Sternum min 2 Views IMPRESSION: No demonstrated sternal fracture. However, the sternum is difficult to accurately evaluate with plain film. If there is strong clinical suspicion of a sternal fracture, recommend further evaluation with limited CT Electronically Signed: Rohit Lujan MD at 16:41 EDT , Service support ,
--- NOTE | 2020-10-04 15:14 | RAD_ITS ---
STUDY: X-RAY - BILATERAL RIBS REASON FOR EXAM: Female, 80 years old. Pain after a fall TECHNIQUE: 6 view(s) of the ribs. COMPARISON: None. FINDINGS: Normal visualized ribs without a demonstrated acute fracture. Old healed left rib fractures. The visualized lungs are clear and expanded. Normal heart, mediastinum and pulmonary dede. RAD/Ribs Bilat 3V No CXR IMPRESSION: No demonstrated acute displaced rib fracture, pleural thickening or pneumothorax Electronically Signed: Rohit Lujan MD at 16:41 EDT , Service support ,
== END ==
PROVIDERS: PCP Internal Medicine; Referring Provider Internal Medicine; Visit Provider Internal Medicine
DX: R07.81 Pleurodynia (principal); R05 Cough; R07.89 Other chest pain
CPT/HCPCS: 71046; 71110; 71120

== ENCOUNTER → 2020-10-15 12:51 | Outpatient (CLI) | payer MEDICARE, OTHER, SELFPAY ==
[2020-09-27 16:04] VITALS: BMI 25.7
--- NOTE | 2020-10-15 12:54 | ECHOD_ITS ---
Reason For Study: Ao Root Dilatation Procedure This was a 2D Doppler, Color Flow transthoracic echocardiogram. The study was technically difficult. Exam performed in department. Left Ventricle Normal LV size. Sigmoid septum. Mid cavitary false tendon noted. Left ventricular systolic function is normal. The estimated ejection fraction is 65 %. There is evidence of diastolic dysfunction. No regional wall motion abnormalities noted. Right Ventricle Normal RV size. Normal systolic function. Atria The left atrium is mildly enlarged. Normal right atrium. No doppler evidence for ASD. Mitral Valve There is moderate to severe mitral annular calcification. Extension of the mitral annular calcification onto the base of the posterior mitral valve leaflet. Trivial mitral valve insufficiency. Tricuspid Valve Normal tricuspid valve. Trivial tricuspid valve insufficiency. Right ventricular systolic pressure estimated to be 29 mmHg. Aortic Valve Trisinus/trileaflet aortic valve. Mild diffuse aortic valve thickening. Pulmonic Valve The pulmonic valve is not well visualized. Trivial eccentric pulmonic valve insufficiency. Great Vessels Mildly dilated aortic root. Pericardium/Pleural No pericardial effusion. MMode/2D Measurements & Calculations LVIDd: 4.4 cm IVSd: 1.1 cm Ao root diam: 4.0 cm LVIDs: 2.6 cm LVPWd: 1.1 cm RVDd: 2.3 cm FS: 41.3 % LAV(MOD-bp): 56.7 ml LVAd ap4: 18.5 cm2 SV(MOD-sp4): 30.6 ml LAV(MOD-bp) Indexed: 36.5 ml/m2 LVLd ap4: 6.2 cm LAV(MOD-sp2): 68.9 ml EDV(MOD-sp4): 44.8 ml LAV(MOD-sp4): 45.7 ml EDV(sp4-el): 47.2 ml LVAs ap4: 9.3 cm2 LVLs ap4: 5.2 cm ESV(MOD-sp4): 14.1 ml ESV(sp4-el): 14.2 ml EF(MOD-sp4): 68.4 % EF(sp4-el): 69.9 % SV(sp4-el): 33.0 ml LA A4 area: 16.8 cm2 LA dimension(2D): 4.1 cm RA A4 area: 10.1 cm2 Doppler Measurements & Calculations MV E max antonino: 83.4 cm/sec Lat Peak E' Antonino: 6.0 cm/sec Med Peak E' Antonino: 4.5 cm/sec MV A max antonino: 108.0 cm/sec E/E' lat: 13.9 E/E' med: 18.7 MV E/A: 0.77 Ao V2 max: 159.6 cm/sec LV V1 max: 120.8 cm/sec PA V2 max: 122.3 cm/sec Ao max P.2 mmHg LV V1 max P.8 mmHg Ao V2 mean: 109.9 cm/sec Ao mean P.4 mmHg Ao V2 VTI: 37.0 cm TR max antonino: 252.8 cm/sec TR max P.6 mmHg ECHO/Echo Complete Interpretation Summary The study was technically difficult. Left ventricular systolic function is normal. The estimated ejection fraction is 65 %. Sigmoid septum. Mid cavitary false tendon noted. The left atrium is mildly enlarged. There is moderate to severe mitral annular calcification. Extension of the mitral annular calcification onto the base of the posterior mi tral valve leaflet. Trivial mitral valve insufficiency. Trivial tricuspid valve insufficiency. Mild diffuse aortic valve thickening. Trivial eccentric pulmonic valve insufficiency. Mildly dilated aortic root. Right ventricular systolic pressure estimated to be 29 mmHg. There is evidence of diastolic dysfunction. Ordering Physician: Richie Avila Referring Physician: Melisa Lucero Performed By: Vivi Amanda, SEBASTIAN, RVT
== END ==
PROVIDERS: PCP Internal Medicine; Referring Provider Internal Medicine Cardiovascular Disease; Visit Provider Internal Medicine Cardiovascular Disease
DX: R55 Syncope and collapse (principal); I77.810 Thoracic aortic ectasia; R01.1 Cardiac murmur, unspecified; I10 Essential (primary) hypertension; E78.5 Hyperlipidemia, unspecified
CPT/HCPCS: 93306

== ENCOUNTER → 2020-10-22 11:18 | Outpatient (CLI) | payer MEDICARE, OTHER, SELFPAY ==
[2019-12-25 14:18] VITALS: BMI 25.7
--- NOTE | 2020-10-22 11:27 | CDU_ITS ---
Reason For Study: Carotid Stenosis Rt. Velocities/BP Lt. Velocities/BP Prox CCA 64/10 cm/sec. Prox CCA 83/14 cm/sec. Mid CCA 72/11 cm/sec. Mid CCA 71/12 cm/sec. Dist CCA 78/13 cm/sec. Dist CCA 75/14 cm/sec. Rt Bulb: 337/37 cm/sec. Prox ICA 131/26 cm/sec. Prox ICA 270/25 cm/sec. Mid ICA 97/28 cm/sec. Mid ICA 120/21 cm/sec. Dist ICA 78/21 cm/sec. Dist ICA 104/30 cm/sec. Lt. ICA/CCA = 1.8. Rt. ICA/CCA = 3.7. Prox ECA 251/12 cm/sec. Prox ECA 166 cm/sec. Lt. Vert. 90/24 cm/sec. Rt. Vert. 66/12 cm/sec. Right Extracranial There is homogeneous, irregular atherosclerotic plaque noted in the right common carotid artery. There is heterogeneous, smooth atherosclerotic plaque noted in the right internal carotid artery. There is intimal thickening but no significant atherosclerotic plaque noted in the right external carotid artery. Antegrade flow is noted in the right vertebral artery. Left Extracranial There is heterogeneous, smooth atherosclerotic plaque noted in the left common carotid artery. There is heterogeneous, irregular atherosclerotic plaque noted in the left internal carotid artery. There is homogeneous, smooth atherosclerotic plaque noted in the left external carotid artery. Antegrade flow is noted in the left vertebral artery. Procedure Carotid Duplex 33968. This is a Carotid Duplex examination using B-mode, color flow and specral Doppler. Prelim given to Ceci SU. Exam performed in department. VL/Carotid Duplex Ultrasound Interpretation Summary Irregular calcific plague right carotid bulb with increased velocity of 337cm/s ec peak systolic Greater than 70% stenosis right internal carotid Less than 50% stenosis right external carotid Irregular plague at the proximal left internal carotid with 50-69% stenosis Greater than 50% stenosis left external carotid Patent, antegrade vertebrals bilaterally Compares to previous exam of 09/19/19--possible advancement of right internal car otid stenosis Ordering Physician: Simone Porras Referring Physician: Melisa Lucero Performed By: Vivi Amanda, SEBASTIAN, RVT
--- NOTE | 2020-10-22 13:58 | NEURO ---
NCS and/or EMG Patient Report Ordering Doctor: Daniel Schulz DATE OF SERVICE: 10/22/20 Indication: Bilateral knee pain (right greater than left). Paresthesias in the lower extremities. Pain and weakness in both feel, but no overt sensory loss. Frequent falls. Evaluate for lumbar radiculopathy or peripheral neuropathy. Findings: Nerve conduction studies were performed in the right and left lower extremity. The right peroneal motor study recording the extensor digitorum brevis showed a normal amplitude, normal distal latency and normal conduction velocity. No conduction block or focal slowing was present across the fibular neck. The right tibial motor study recording the abductor hallucis brevis showed a slightly reduced amplitude, normal distal latency and normal conduction velocity. Right sural sensory response showed a normal amplitude and borderline conduction velocity. Right superficial peroneal sensory response showed a normal amplitude and conduction velocity. Right medial plantar sensory response showed a normal amplitude and conduction velocity. The left peroneal motor study recording the extensor digitorum brevis showed a normal amplitude, normal distal latency and normal conduction velocity. No conduction block or focal slowing was present across the fibular neck. The left tibial motor study recording the abductor hallucis brevis showed a normal amplitude, normal distal latency and normal conduction velocity. Left sural sensory response showed a normal amplitude and conduction velocity. Left superficial peroneal sensory response showed a normal amplitude and conduction velocity. Left medial plantar sensory response showed a normal amplitude and conduction velocity. Needle EMG of the right lower extremity and lumbar paraspinal muscles was performed. No denervation was present in any muscle. Motor units in the tibialis anterior, extensor hallucis longus and tensor fascia tony were slightly large amplitude and long duration. The extensor hallucis longus revealed diminished recruitment. All other motor unit morphology, activation and recruitment patterns were normal. Needle EMG of the left lower extremity and lumbar paraspinal muscles was performed. No denervation was present in any muscle. Motor units in the left vastus medialis were borderline large amplitude, but otherwise unremarkable. All motor unit morphology, activation and recruitment patterns were normal. Impression: This is a mildly abnormal study. There is electrophysiologic evidence consistent with a chronic right L5 radiculopathy. There was no active denervation to suggest ongoing motor axon loss. There was no evidence of a superimposed peripheral polyneuropathy. Of note, there were subtle signs of reinnervation isolated to the vastus medialis in the left lower extremity. This is of unclear significance, but may be related to her prior knee replacement given its proximity. Mendoza Cruz D.O. Multi Select Codes Neurology Neurology Interp Codes: 56944-58 [facility] test done w/n test comp (interp) (Qty: 2) and 53582-59 Nr cnd test 11-12 studies (interp)
== END ==
PROVIDERS: PCP Internal Medicine; Referring Provider Podiatrist; Visit Provider Podiatrist
DX: G62.9 Polyneuropathy, unspecified (principal); R20.2 Paresthesia of skin
CPT/HCPCS: 93880; 95886; 95912

== ENCOUNTER → 2020-11-02 12:06 | Outpatient (CLI) | payer MEDICARE, OTHER, SELFPAY ==
[2020-11-02 12:31] LABS: Potassium 5.6 mmol/L (3.5-5.1)
== END ==
PROVIDERS: PCP Internal Medicine; Visit Provider Internal Medicine
DX: E87.5 Hyperkalemia (principal)
CPT/HCPCS: 84132

== ENCOUNTER → 2020-11-26 11:43 | Outpatient (CLI) | payer MEDICARE, OTHER, SELFPAY ==
[2020-11-26 15:19] LABS: ALB/GLOB Ratio 1.3 RATIO (0.9-2.4); AST(SGOT) 17 U/L (15-37); Alanine Aminotransfer ALT/SGPT 18 U/L (13-56); Alkaline Phosphatase 78 U/L (45-117); Anion Gap 6 (5-15); BUN 27 mg/dL (7-18); BUN/Creat Ratio 25.7 RATIO (10-20); Calcium,Total 9.6 mg/dL (8.5-10.1); Chloride 109 mmol/L (98-107); Creatinine, Serum 1.05 mg/dL (0.55-1.02); EST Glomerular Filtration Rate 54 mL/min (>60); Est Glom Filt Rate - Afr Amer 65 mL/min (>60); Glucose 88 mg/dL (74-106); Potassium 4.5 mmol/L (3.5-5.1); Sodium Level 139 mmol/L (136-145)
== END ==
PROVIDERS: PCP Internal Medicine; Referring Provider Internal Medicine Endocrinology, Diabetes & Metabolism; Visit Provider Internal Medicine Endocrinology, Diabetes & Metabolism
DX: E55.9 Vitamin D deficiency, unspecified (principal); M81.0 Age-related osteoporosis without current pathological fracture
CPT/HCPCS: 36415; 80053; 82306

== ENCOUNTER → 2020-12-01 15:28 | Outpatient (CLI) | payer MEDICARE, OTHER, SELFPAY ==
[2020-12-03 16:09] LABS: Endomysial Antibody IgA Negative (Negative)
[2020-12-03 20:18] LABS: Immunoglobulin A 142 mg/dL (64-422); t-Transglutaminase IgA <2 U/mL (0-3)
== END ==
PROVIDERS: PCP Internal Medicine; Referring Provider Internal Medicine Gastroenterology; Visit Provider Internal Medicine Gastroenterology
DX: R19.7 Diarrhea, unspecified (principal)
CPT/HCPCS: 36415; 82784; 83516; 86140; 86255

== ENCOUNTER → 2021-01-10 14:01 | Outpatient (CLI) | payer MEDICARE, OTHER, SELFPAY ==
--- NOTE | 2021-01-10 14:04 | BI_ITS ---
MAMMOGRAPHY - BILATERAL SCREENING REASON FOR EXAM: Female, 80 years old. Routine annual screening examination. PERTINENT HISTORY: Non-contributory. History of remote bilateral breast reduction surgery. TECHNIQUE: Digital bilateral breast radha (3D mammographic acquisition) in the CC and MLO projections. 2-D mediolateral oblique (MLO) and craniocaudad (CC) views of both breasts were obtained. CAD: Full Field Digital Mammography with Computer Added Detection was performed. COMPARISON: Comparison is made with prior study dated 01/06/2020 and 12/27/2018. FINDINGS: Breast Composition: There are scattered areas of fibroglandular density. There are no dominant masses or suspicious calcifications. A tissue clip marker is seen in the upper central portion of the left breast in the mid medial aspect of the right breast. No other significant abnormalities are identified. There has been no significant change since the prior study. BI/SCRN MAMM (CAD)W/RADHA BILAT IMPRESSION: Stable bilateral screening mammogram. Yearly follow-up mammogram recommended. (A) ASSESSMENT CATEGORY: BIRADS Category 2: Benign. A letter regarding these results will be sent to the patient by the facility within 30 days. Approximately 10% of breast cancers are not detected by mammography. A normal mammogram should not delay biopsy of a clinically suspicious abnormality. [id number] Electronically Signed: Wilbert Garcia MD at 14:54 EST , Service support ,
== END ==
PROVIDERS: PCP Internal Medicine; Visit Provider Internal Medicine
DX: Z12.31 Encounter for screening mammogram for malignant neoplasm of breast (principal)
CPT/HCPCS: 77063; 77067

== ENCOUNTER → 2021-06-20 | Outpatient (CLI) | payer MEDICARE, OTHER, SELFPAY ==
[2021-06-20 12:42] LABS: ALB/GLOB Ratio 1.2 RATIO (0.9-2.4); AST(SGOT) 28 U/L (15-37); Alanine Aminotransfer ALT/SGPT 27 U/L (13-56); Albumin, Serum 4.1 g/dL (3.2-5.0); Alkaline Phosphatase 79 U/L (45-117); Anion Gap 7 (5-15); BUN 25 mg/dL (7-18); BUN/Creat Ratio 22.3 RATIO (10-20); Calcium,Total 9.4 mg/dL (8.5-10.1); Chloride 106 mmol/L (98-107); Creatinine, Serum 1.12 mg/dL (0.55-1.02); EST Glomerular Filtration Rate 50 mL/min (>60); Est Glom Filt Rate - Afr Amer 60 mL/min (>60); Globulin 3.5 g/dL (2.2-4.2); Glucose 102 mg/dL (74-106); Potassium 4.4 mmol/L (3.5-5.1); Protein, Total 7.6 g/dL (6.4-8.2); Sodium Level 138 mmol/L (136-145)
== END | disposition home or self-care (01) ==
LOC: MTLAB 10:15
PROVIDERS: PCP Internal Medicine; Referring Provider Internal Medicine Endocrinology, Diabetes & Metabolism; Visit Provider Internal Medicine Endocrinology, Diabetes & Metabolism
DX: M81.0 Age-related osteoporosis without current pathological fracture (principal); E55.9 Vitamin D deficiency, unspecified
CPT/HCPCS: 36415; 80053; 82306

== ENCOUNTER → 2021-09-08 | Outpatient (CLI) | payer MEDICARE, OTHER, SELFPAY ==
[2021-09-08 13:55] LABS: Anion Gap 6 (5-15); BUN 43 mg/dL (7-18); BUN/Creat Ratio 36.8 RATIO (10-20); Calcium,Total 9.7 mg/dL (8.5-10.1); Chloride 107 mmol/L (98-107); Creatinine, Serum 1.17 mg/dL (0.55-1.02); EST Glomerular Filtration Rate 47 mL/min (>60); Est Glom Filt Rate - Afr Amer 57 mL/min (>60); Glucose 87 mg/dL (74-106); Potassium 4.5 mmol/L (3.5-5.1); Sodium Level 138 mmol/L (136-145)
== END | disposition home or self-care (01) ==
PROVIDERS: PCP Internal Medicine; Referring Provider Internal Medicine Endocrinology, Diabetes & Metabolism; Visit Provider Internal Medicine Endocrinology, Diabetes & Metabolism
DX: M81.0 Age-related osteoporosis without current pathological fracture (principal)
CPT/HCPCS: 36415; 80048

== ENCOUNTER → 2021-10-03 | Outpatient (CLI) | payer MEDICARE, OTHER, SELFPAY ==
[2021-10-03 11:19] LABS: Potassium 5.1 mmol/L (3.5-5.1)
== END | disposition home or self-care (01) ==
LOC: LABSPEC 11:06
PROVIDERS: PCP Internal Medicine; Referring Provider Internal Medicine; Visit Provider Internal Medicine
DX: E87.5 Hyperkalemia (principal)
CPT/HCPCS: 84132

== ENCOUNTER → 2021-10-12 | Outpatient (CLI) | payer MEDICARE, OTHER, SELFPAY ==
[2021-10-12 14:07] VITALS: BP 158/70; PULSE 63; RESP 16; TEMP 35.7; O2SAT 96; BMI 25.8
[2021-10-12] MEDS: 0.9% NaCl IVPB Med Flush (250 mL) 15 ML IV (14:38)
[2021-10-12] MEDS: Zoledronic Acid 5 MG 100 ML 300 MG IV (14:39)
[2021-10-12] MEDS: 0.9% NaCl Peripheral Flush Adult/Peds IV (14:39)
[2021-10-12 15:17] VITALS: BP 150/51; PULSE 59
== END | disposition home or self-care (01) ==
LOC: MEDOUTP 13:54
PROVIDERS: PCP Internal Medicine; Referring Provider Internal Medicine Endocrinology, Diabetes & Metabolism; Visit Provider Internal Medicine Endocrinology, Diabetes & Metabolism
DX: M81.0 Age-related osteoporosis without current pathological fracture (principal)
CPT/HCPCS: 96365; J7050; A4216; J3489

== ENCOUNTER → 2021-10-21 | Outpatient (CLI) | payer MEDICARE, OTHER, SELFPAY ==
--- NOTE | 2021-10-21 12:50 | CDU_ITS ---
Reason For Study: CAROTID STENOSIS Rt. Velocities/BP Lt. Velocities/BP Prox CCA 66.4/5.1 cm/sec. Prox CCA 99.0/15.3 cm/sec. Mid CCA 58.8/10.3 cm/sec. Mid CCA 80.6/10.6 cm/sec. Dist CCA 85.5/11.2 cm/sec. Dist CCA 79.3/11.8 cm/sec. Prox ICA 418.2/25.4 cm/sec. Prox ICA 92.5/18.8 cm/sec. Mid ICA 134.2/13.6 cm/sec. Mid ICA 128.1/20.0 cm/sec. Dist ICA 114.5/20.2 cm/sec. Dist ICA 80.2/20.0 cm/sec. Rt. ICA/CCA = 418.2/85.5=4.9. Lt. ICA/CCA = 128.1/80.6=1.59. Prox ECA 315.4/0.0 cm/sec. Prox ECA 292.8/8.4 cm/sec. Rt. Vert. 57.0/10.9 cm/sec. Lt. Vert. 48.2/13.3 cm/sec. Right Extracranial There is homogeneous, irregular atherosclerotic plaque noted in the right common carotid artery. There is heterogeneous, irregular atherosclerotic plaque noted in the right internal carotid artery. There is intimal thickening but no significant atherosclerotic plaque noted in the right external carotid artery. Antegrade flow is noted in the right vertebral artery. Left Extracranial There is heterogeneous, smooth atherosclerotic plaque noted in the left common carotid artery. There is heterogeneous, irregular atherosclerotic plaque noted in the left internal carotid artery. There is homogeneous, smooth atherosclerotic plaque noted in the left external carotid artery. Antegrade flow is noted in the left vertebral artery. Procedure Carotid Duplex [id number]. The study was technically difficult. Exam performed in department. VL/Carotid Duplex Ultrasound Interpretation Summary Calcific plaque with shadowing at the distal right common carotid artery. Irregular hard and soft plaque at the proximal right internal carotid artery wi th greater than 70% stenosis. Greater than 50% stenosis right external carotid artery Irregular plaque at the proximal left internal carotid artery with 50 to 69% st enosis. This is likely closer to 50%. Greater than 50% stenosis left external carotid artery Patent and antegrade vertebral arteries bilaterally Velocities involving the right internal carotid appeared to have accelerated fr om the previous examination of October 22, 2020 Ordering Physician: Simone Porras Referring Physician: Melisa Lucero Performed By: Guera Gould, RDCS, RVT
== END | disposition home or self-care (01) ==
LOC: CVS 12:49
PROVIDERS: PCP Internal Medicine; Referring Provider Surgery; Visit Provider Surgery
DX: R55 Syncope and collapse (principal)
CPT/HCPCS: 93880

== ENCOUNTER → 2021-11-02 | Outpatient (CLI) | payer MEDICARE, OTHER, SELFPAY ==
--- NOTE | 2021-11-02 12:40 | ECHOD_ITS ---
Reason For Study: Thoracic Aortic Aneurysm Procedure This was a 2D Doppler, Color Flow transthoracic echocardiogram. The exam was of adequate technical quality. Exam performed in department. Left Ventricle Normal LV size. Left ventricular systolic function is normal. The estimated ejection fraction is 65 %. Diastolic function is indeterminate. No regional wall motion abnormalities noted. Right Ventricle Normal RV size. Normal systolic function. Atria The left atrium is mildly enlarged. Normal right atrium. No doppler evidence for ASD. Mitral Valve There is moderate mitral annular calcification. Extension of the mitral annular calcification onto the base of the posterior mitral valve leaflet. Trivial mitral valve insufficiency. Tricuspid Valve Normal tricuspid valve. Trivial tricuspid valve insufficiency. Right ventricular systolic pressure estimated to be 26 mmHg. Aortic Valve Trisinus/trileaflet aortic valve. Mild focal aortic valve calcification. Pulmonic Valve The pulmonic valve is not well visualized. Great Vessels Mildly dilated aortic root. Pericardium/Pleural No pericardial effusion. MMode/2D Measurements & Calculations LVIDd: 4.7 cm IVSd: 0.78 cm Ao root diam: 4.1 cm LVIDs: 3.0 cm LVPWd: 0.96 cm RVDd: 3.0 cm FS: 36.0 % LAV(MOD-bp): 46.9 ml LVAd ap4: 23.5 cm2 LVAd ap2: 22.1 cm2 LAV(MOD-bp) Indexed: 30.6 ml/m2 LVLd ap4: 6.8 cm LVLd ap2: 6.6 cm LAV(MOD-sp2): 49.2 ml EDV(MOD-sp4): 64.8 ml EDV(MOD-sp2): 60.9 ml LAV(MOD-sp4): 36.7 ml EDV(sp4-el): 68.7 ml EDV(sp2-el): 62.7 ml LVAs ap4: 12.1 cm2 LVAs ap2: 11.8 cm2 LVLs ap4: 5.3 cm LVLs ap2: 6.1 cm ESV(MOD-sp4): 24.2 ml ESV(MOD-sp2): 19.3 ml ESV(sp4-el): 23.3 ml ESV(sp2-el): 19.5 ml EF(MOD-sp4): 62.7 % EF(MOD-sp2): 68.2 % EF(sp4-el): 66.1 % SV(MOD-sp4): 40.6 ml SV(MOD-sp2): 41.5 ml SV(sp4-el): 45.4 ml LA dimension(2D): 3.9 cm LA A4 area: 14.0 cm2 Time Measurements MV dec time: 0.27 sec Doppler Measurements & Calculations MV E max antonino: 82.0 cm/sec Lat Peak E' Antonino: 6.5 cm/sec Med Peak E' Antonino: 5.0 cm/sec MV A max antonino: 91.8 cm/sec E/E' lat: 12.6 E/E' med: 16.3 MV E/A: 0.89 MV dec slope: 304.0 cm/sec2 Ao V2 max: 114.8 cm/sec LV V1 max: 100.2 cm/sec Ao max P.3 mmHg LV V1 max P.0 mmHg Ao V2 mean: 79.5 cm/sec Ao mean P.8 mmHg Ao V2 VTI: 26.0 cm PA V2 max: 106.8 cm/sec TR max antonino: 239.2 cm/sec PA V2 mean: 72.5 cm/sec TR max P.9 mmHg ECHO/Echo Complete Interpretation Summary Left ventricular systolic function is normal. The estimated ejection fraction is 65 %. The left atrium is mildly enlarged. There is moderate mitral annular calcification. Extension of the mitral annular calcification onto the base of the posterior mi tral valve leaflet. Trivial mitral valve insufficiency. Trivial tricuspid valve insufficiency. Mild focal aortic valve calcification. Mildly dilated aortic root. Right ventricular systolic pressure estimated to be 26 mmHg. Diastolic function is indeterminate. Ordering Physician: Richie Avila Referring Physician: Melisa Lucero Performed By: Guera Gould, SEBASTIAN, RVT
== END | disposition home or self-care (01) ==
LOC: CVS 12:39
PROVIDERS: PCP Internal Medicine; Referring Provider Internal Medicine Cardiovascular Disease; Visit Provider Internal Medicine Cardiovascular Disease
DX: R01.1 Cardiac murmur, unspecified (principal); I77.810 Thoracic aortic ectasia
CPT/HCPCS: 93306

== ENCOUNTER → 2022-01-16 | Outpatient (CLI) | payer MEDICARE, OTHER, SELFPAY ==
--- NOTE | 2022-01-16 12:45 | BI_ITS ---
MAMMOGRAPHY - BILATERAL SCREENING REASON FOR EXAM: Female, 81 years old. Routine annual screening examination. PERTINENT HISTORY: Non-contributory. Prior bilateral breast reduction surgery. Chronic inversion of the nipples bilaterally. TECHNIQUE: Digital bilateral breast radha (3D mammographic acquisition) in the CC and MLO projections. 2-D mediolateral oblique (MLO) and craniocaudad (CC) views of both breasts were obtained. CAD: Full Field Digital Mammography with Computer Added Detection was performed. COMPARISON: Comparison is made with prior study 01/10/2021 and 01/06/2020. FINDINGS: Breast Composition: There are scattered areas of fibroglandular density. There are no dominant masses or suspicious calcifications. A tissue clip marker is once again seen in the upper central portion of the left breast. No other significant abnormalities are identified. There has been no significant change since the prior study. BI/SCRN MAMM (CAD)W/RADHA BILAT IMPRESSION: Stable bilateral screening mammogram. Yearly follow-up mammogram recommended. (A) ASSESSMENT CATEGORY: BIRADS Category 2: Benign. A letter regarding these results will be sent to the patient by the facility within 30 days. Approximately 10% of breast cancers are not detected by mammography. A normal mammogram should not delay biopsy of a clinically suspicious abnormality. [id number] Electronically Signed: Wilbert Garcia MD at 13:58 EST ,
== END | disposition home or self-care (01) ==
LOC: OPBI 12:44
PROVIDERS: PCP Internal Medicine; Visit Provider Internal Medicine
DX: Z12.31 Encounter for screening mammogram for malignant neoplasm of breast (principal); N64.59 Other signs and symptoms in breast
CPT/HCPCS: 77063; 77067

== ENCOUNTER → 2022-03-20 | Outpatient (CLI) | payer MEDICARE, OTHER, SELFPAY ==
[2022-03-20 10:31] LABS: Mucous, Urine 0 SEEN /hpf (<or=2+); Squamous Epithelial Cells - UA 0 SEEN /hpf (5-10)
[2022-03-20 10:39] LABS: Color, Urine Brown (Yellow); Glucose, Dipstick Normal (Normal); Ketone-Dipstick 5 mg/dl (Negative); Leukocyte Esterase-Dipstick 500 /ul (Negative); Nitrite-Dipstick Positive (Negative); Occult Blood-Urine 250 /ul (Negative); Protein-Dipstick 500 mg/dl (Negative); Urine Bilirubin Dipstick Negative (Negative); Urine Clarity Turbid (Clear); Urine Urobilinogen Normal (Normal)
[2022-03-20 10:48] LABS: Bacteria 2+ /hpf (None Seen); Red Blood Cells-Urine 25-50 SEEN /hpf (0-5); White Blood Cells 25-50 SEEN /hpf (0-5)
== END | disposition home or self-care (01) ==
LOC: LABSPEC 10:24
PROVIDERS: PCP Internal Medicine; Referring Provider Physician Assistant Surgical; Visit Provider Physician Assistant Surgical
DX: R30.0 Dysuria (principal); R32 Unspecified urinary incontinence
CPT/HCPCS: 81001; 87077; 87086; 87088; 87186

== ENCOUNTER → 2022-06-21 | Outpatient (CLI) | payer MEDICARE, OTHER, SELFPAY ==
--- NOTE | 2022-06-21 10:54 | BD_ITS ---
STUDY: DUAL ENERGY X-RAY ABSORPTIOMETRY / DXA REASON FOR EXAM: Female, 82 years old. Osteoporosis TECHNIQUE: Bone Mineral Density (BMD) measurements of lumbar spine and right hip were obtained. COMPARISON: Comparison is made with prior study dated October 31, 2011. FINDINGS: Lumbar Spine (L1-L4): g/cm2 (1.104) / T-score (0.5) / Z-score (3.2) Findings are suggestive of normal bone density with a low fracture risk. Right Femur Total: g/cm2 (0.706) / T-score (-1.9) / Z-score (0.1) Right Femoral Neck: g/cm2 (0.590) / T-score (-2.3) / Z-score (0.0) The T-Scores on the most recent prior examination were: Lumbar Spine (L1-L4): There has been improvement of bone density since the previous examination. Right Femur Total: which represents an improvement of 8.5%. BD/Dexa Bone Density Study IMPRESSION: The patient is considered osteopenic as outlined below according to World Kyle Organization (WHO) criteria with a high fracture risk. There has been improvement of bone density since the previous examination. Reference Information: The T-score is the number of standard deviations above or below the standard which is normal for young adults at their peak bone mineral density. The World Health Organization (WHO) interprets the T-scores as follows: Above -1 Normal bone density Between -1 and -2.5 Osteopenia Equal to / or below -2.5 Osteoporosis As a practical clinical guideline, osteopenia may be graded as follows: Mild -1 through -1.5 Moderate -1.6 through -2.0 Severe -2.1 through -2.4 The Z-score is the number of standard deviations above or below age-matched controls. A Z-score of less than -1.5 would be considered abnormal. References: 1. NIH Osteoporosis and Related Bone Diseases www osteo.org 2. International Society for Clinical Densitometry www iscd.org 3. National Osteoporosis Foundation www nof.org Electronically Signed: Wilbert Garcia MD at 12:33 EDT ,
== END | disposition home or self-care (01) ==
LOC: OPBD 10:43
PROVIDERS: PCP Internal Medicine; Referring Provider Internal Medicine Endocrinology, Diabetes & Metabolism; Visit Provider Internal Medicine Endocrinology, Diabetes & Metabolism
DX: M81.0 Age-related osteoporosis without current pathological fracture (principal)
CPT/HCPCS: 77080

== ENCOUNTER 2022-08-04 14:37 | Outpatient (CLI) | payer MEDICARE, OTHER, SELFPAY ==
[2022-08-04 14:44] VITALS: BP 145/43; PULSE 77; RESP 16; TEMP 35.7; O2SAT 96; BMI 25.0
[2022-08-04] MEDS: DENOSUMAB 60 MG/ML SC (14:49)
== END 2022-08-04 14:38 | disposition home or self-care (01) ==
LOC: MEDOUTP 14:38
PROVIDERS: PCP Internal Medicine; Referring Provider Internal Medicine Endocrinology, Diabetes & Metabolism; Visit Provider Internal Medicine Endocrinology, Diabetes & Metabolism
DX: M81.0 Age-related osteoporosis without current pathological fracture (principal)
CPT/HCPCS: 96372; J0897

== ENCOUNTER → 2022-11-14 | Outpatient (CLI) | payer MEDICARE, OTHER, SELFPAY ==
--- NOTE | 2022-11-14 10:24 | US_ITS ---
PROCEDURES: ULTRASOUND AORTA REASON FOR EXAM: Female, 82 years old. AAA screening. TECHNIQUE: Ultrasound evaluation of the aorta was performed with real-time and static templeton-scale imaging. COMPARISON: None. FINDINGS: There is tortuous elongation of the abdominal aorta. Diffuse atherosclerotic plaque. Aorta measures: Proximal 1.8 cm. Middle 1.4 cm. Distal 1.1 cm. Aorta measure transversely: Proximal 2.1 cm. Middle 1.6 cm. Distal 1.8 cm. Right iliac artery measures: 0.7 cm. Right iliac artery measure transversely: 0.9 cm. Left iliac artery measures: 0.7 cm. Left iliac artery measure transversely: 0.9 cm. There is no demonstrated aneurysm.. US/Aorta IMPRESSION: No evidence of abdominal aortic aneurysm. Tortuosity and atherosclerotic plaque formation of the infrarenal abdominal aorta. Electronically Signed: Wilbert Garcia MD at 12:45 EDT ,
== END | disposition home or self-care (01) ==
LOC: US 10:18
PROVIDERS: PCP Internal Medicine; Referring Provider Internal Medicine; Visit Provider Internal Medicine
DX: I71.40 Abdominal aortic aneurysm, without rupture, unspecified (principal)
CPT/HCPCS: 76775

== ENCOUNTER → 2022-11-23 | Outpatient (CLI) | payer MEDICARE, OTHER, SELFPAY ==
[2022-11-23 17:09] LABS: Creatinine, Serum 1.21 mg/dL (0.55-1.02); EST Glomerular Filtration Rate 45 mL/min (>60); Est Glom Filt Rate - Afr Amer 55 mL/min (>60)
== END | disposition home or self-care (01) ==
LOC: LAB 16:35
PROVIDERS: PCP Internal Medicine; Visit Provider Surgery Trauma Surgery
DX: I65.29 Occlusion and stenosis of unspecified carotid artery (principal)
CPT/HCPCS: 36415; 82565

== ENCOUNTER → 2022-12-04 | Outpatient (CLI) | payer MEDICARE, OTHER, SELFPAY ==
--- NOTE | 2022-12-04 14:12 | CT_ITS ---
STUDY: CTA HEAD AND NECK WITH CONTRAST REASON FOR EXAM: Female, 82 years old. Carotid stenosis right side RADIATION DOSAGE (If Supplied By Facility): CTDIvol = ( 26.19 ) mGy, DLP = ( 1329.47 ) mGycm TECHNIQUE: CT angiography was performed with a multi-detector CT scanner. Data acquisition was obtained from the skull base through the vertex following intravenous administration of IV 100mL Isovue-370. MIP images were reconstructed from the axial data set. Post-processing of the angiographic images was performed, with multiplanar reformation and 3D reconstruction. Individualized dose optimization techniques were used for this CT. COMPARISON: No relevant priors. FINDINGS: Normal bilateral petrous carotid arteries. Normal right cavernous carotid artery with a normal supraclinoid bifurcation. Normal left cavernous carotid artery with a normal supraclinoid bifurcation. Normal right A1 segments of the anterior cerebral artery. Normal left A1 segments of the anterior cerebral artery. Normal intact anterior communicating artery (ACOM). Normal bilateral A2 segments of the anterior cerebral arteries. Normal right M1 and M2 segments of the middle cerebral arteries, with a normal M1 bifurcation. Normal left M1 and M2 segments of the middle cerebral arteries, with a normal M1 bifurcation. Normal right posterior communicating artery (PCOM). Normal left posterior communicating artery (PCOM). Normal bilateral vertebral arteries. Normal basilar artery with a normal basilar bifurcation. The visualized bilateral superior cerebellar (SCA) arteries are normal. Normal bilateral P1, P2 and visualized P3 segments of the posterior cerebral arteries. There is no demonstrated aneurysm of the [place]. Atherosclerotic calcification of the vertebral arteries worse on the left side. Mild degree of the cerebral atrophy with decreased attenuation in the periventricular white matter suggestive of chronic small vessel disease. Mild atherosclerotic calcification of the basal ganglia. AORTIC ARCH: There is atherosclerotic calcific plaque formation of the aortic arch and great vessels arising from the aortic arch, without a hemodynamically significant stenosis. There is a normal origin of the brachiocephalic, left common carotid, and left subclavian arteries. RIGHT CAROTID ARTERIES: Normal right common carotid artery (CCA). Normal right common carotid bulb. There is mild atherosclerotic plaque formation of the origin of the right internal carotid artery with less than 50% cross sectional diameter stenosis. Normal visualized cervical portion of the right internal carotid artery. Normal origin of the right external carotid artery (ECA). LEFT CAROTID ARTERIES: Normal left common carotid artery (CCA). Normal left common carotid bulb. There is mild atherosclerotic plaque formation of the origin of the left internal carotid artery with less than 50% cross sectional diameter stenosis. Normal visualized cervical portion of the left internal carotid artery. Normal origin of the left external carotid artery (ECA). VERTEBRAL ARTERIES: There is enhancement within the bilateral vertebral arteries with a small right vertebral artery, and a dominant left vertebral artery. CT/CTA Head AND Neck W/ Contrast IMPRESSION: Calcific plaque at the origin of both internal carotid arteries causing less than 50% luminal narrowing. Electronically Signed: Wilbert Garcia MD at 15:35 EDT ,
== END | disposition home or self-care (01) ==
LOC: CT 14:08
PROVIDERS: PCP Internal Medicine; Referring Provider Surgery Trauma Surgery; Visit Provider Surgery Trauma Surgery
DX: I65.21 Occlusion and stenosis of right carotid artery (principal)
CPT/HCPCS: 70496; 70498; Q9967

== ENCOUNTER → 2022-12-25 | Outpatient (CLI) | payer MEDICARE, OTHER, SELFPAY ==
--- NOTE | 2022-12-25 13:31 | CT_ITS ---
STUDY: CTA CHEST AND CTA ABDOMEN/PELVIS WITH CONTRAST REASON FOR EXAM: Female, 82 years old. aortic aneurysm RADIATION DOSAGE (If Supplied By Facility): CTDIvol = ( 13.09 ) mGy, DLP = ( 755.84 ) mGycm TECHNIQUE: The examination was performed with the intravenous administration of IV 100mL Isovue-370. Post-processing of the angiographic images was performed, with multiplanar reformation and 3D reconstruction. Individualized dose optimization techniques were used for this CT. COMPARISON: Comparison is made with prior ultrasound the abdominal aorta dated November 14, 2022. FINDINGS: CTA Chest Normal enhancement of the main pulmonary artery and right and left pulmonary arteries. Normal enhancement of the bilateral peripheral pulmonary arteries. There is no demonstrated pulmonary embolism. There is aneurysmal dilatation of the ascending aorta. The transverse diameter of the ascending aorta measures 41.7 mm''s. Atherosclerotic plaque formation of the aortic arch and descending thoracic aorta. There is no demonstrated aortic dissection. Normal heart and pericardium. Normal mediastinum. Normal hilar regions. Normal visualized trachea and bronchi. The lungs are well expanded. Mild degree of increased markings in the right lower lobe and lateral aspect of the right lower lobe suggestive of scarring. Normal pleura. Normal chest wall structures. Normal osseous structures. Normal visualized upper abdomen. CTA Abdomen T Pelvis There is decreased attenuation of the liver consistent with steatosis. Normal gallbladder and extrahepatic biliary system. Normal spleen. Normal pancreas. Normal bilateral adrenal glands. Normal right kidney. Normal left kidney. Normal visualized stomach. Normal small intestine. Normal colon. The appendix is visualized and appears normal. There is diffuse atherosclerotic calcification of the abdominal aorta, without a demonstrated aneurysm. Normal inferior vena cava. Normal retroperitoneum. Normal urinary bladder. There is absence of the uterus consistent with a prior hysterectomy. Normal abdominal wall. There are diffuse degenerative changes of the visualized lumbar spine. CT/CTA Chst, Abd, Pel W and/or WO IMPRESSION: No abdominal aortic aneurysm is seen. There is dilatation of the ascending aorta with a transverse dimension of 41.7 mm. Electronically Signed: Wilbert Garcia MD at 14:31 EST ,
[2022-12-25 14:08] LABS: CREATININE FINGERSTICK 1.3 mg/dL (0.55-1.02)
== END | disposition home or self-care (01) ==
LOC: CT 13:30
PROVIDERS: PCP Internal Medicine; Referring Provider Surgery Trauma Surgery; Visit Provider Surgery Trauma Surgery
DX: I71.60 Thoracoabdominal aortic aneurysm, without rupture, unspecified (principal); Z98.890 Other specified postprocedural states; Z86.79 Personal history of other diseases of the circulatory system
CPT/HCPCS: 71275; 74174; Q9967; A4216

== ENCOUNTER → 2023-01-18 | Outpatient (CLI) | payer MEDICARE, OTHER, SELFPAY ==
--- NOTE | 2023-01-18 13:31 | BI_ITS ---
MAMMOGRAPHY - BILATERAL SCREENING REASON FOR EXAM: Female, 82 years old. Routine annual screening examination. PERTINENT HISTORY: Non-contributory. History of prior bilateral breast reduction surgery and bilateral needle biopsies. Chronic inversion of both nipples. TECHNIQUE: Digital bilateral breast radha (3D mammographic acquisition) in the CC and MLO projections. 2-D mediolateral oblique (MLO) and craniocaudad (CC) views of both breasts were obtained. CAD: Full Field Digital Mammography with Computer Added Detection was performed. COMPARISON: Comparison is made with prior study dated January 16, 2022 and number 01/11/2020. FINDINGS: Breast Composition: There are scattered areas of fibroglandular density. There are no dominant masses or suspicious calcifications. A tissue clip marker is seen in the central portion of the left breast. A tissue clip marker is also seen in the central medial portion of the right breast. No other significant abnormalities are identified. There has been no significant change since the prior study. BI/SCRN MAMM (CAD)W/RADHA BILAT IMPRESSION: Stable bilateral screening mammogram. Yearly follow-up mammogram recommended. (A) ASSESSMENT CATEGORY: BIRADS Category 2: Benign. A letter regarding these results will be sent to the patient by the facility within 30 days. Approximately 10% of breast cancers are not detected by mammography. A normal mammogram should not delay biopsy of a clinically suspicious abnormality. [id number] Electronically Signed: Wilbert Garcia MD at 14:10 EST ,
== END | disposition home or self-care (01) ==
LOC: OPBI 13:29
PROVIDERS: PCP Internal Medicine; Referring Provider Internal Medicine; Visit Provider Internal Medicine
DX: Z12.31 Encounter for screening mammogram for malignant neoplasm of breast (principal)
CPT/HCPCS: 77063; 77067

== ENCOUNTER 2023-02-02 12:52 | Outpatient (CLI) | payer MEDICARE, OTHER, SELFPAY ==
[2023-02-02 13:35] VITALS: BP 164/77; PULSE 83; RESP 16; TEMP 36.1; O2SAT 94; BMI 24.4
[2023-02-02] MEDS: DENOSUMAB 60 MG/ML SC (13:38)
== END 2023-02-02 12:53 | disposition home or self-care (01) ==
LOC: MEDOUTP 12:52
PROVIDERS: PCP Internal Medicine; Referring Provider Internal Medicine Endocrinology, Diabetes & Metabolism; Visit Provider Internal Medicine Endocrinology, Diabetes & Metabolism
DX: M81.0 Age-related osteoporosis without current pathological fracture (principal)
CPT/HCPCS: 96372; J0897

== ENCOUNTER → 2023-06-08 | Outpatient (CLI) | payer MEDICARE, OTHER, SELFPAY ==
[2023-06-08 12:49] LABS: Vitamin D,25 Hydroxy 50.9 ng/mL
[2023-06-08 13:49] LABS: T4 Free Direct 0.87 ng/dL (0.76-1.46)
== END | disposition home or self-care (01) ==
LOC: LAB 11:48
PROVIDERS: PCP Internal Medicine; Referring Provider Internal Medicine Endocrinology, Diabetes & Metabolism; Visit Provider Internal Medicine Endocrinology, Diabetes & Metabolism
DX: E55.9 Vitamin D deficiency, unspecified (principal); M81.0 Age-related osteoporosis without current pathological fracture; E03.9 Hypothyroidism, unspecified
CPT/HCPCS: 36415; 82306; 84439; 84443

== ENCOUNTER 2023-08-06 17:27 | Emergency (ER) | payer MEDICARE, OTHER, SELFPAY ==
[2023-08-06 17:27] VITALS: BP 188/96; PULSE 76; RESP 16; TEMP 36.6; O2SAT 96
[2023-08-06 17:29] VITALS: BMI 25.1
--- NOTE | 2023-08-06 17:53 | CT_ITS ---
STUDY: CTA HEAD AND NECK WITH CONTRAST REASON FOR EXAM: Female, 83 years old. right throat pain/ pressure RADIATION DOSAGE (If Supplied By Facility): CTDIvol = ( 29.30 ) mGy, DLP = ( 1259.75 ) mGycm TECHNIQUE: CT angiography was performed with a multi-detector CT scanner. Data acquisition was obtained from the skull base through the vertex following intravenous administration of IV 100mL Isovue-370. MIP images were reconstructed from the axial data set. Post-processing of the angiographic images was performed, with multiplanar reformation and 3D reconstruction. Individualized dose optimization techniques were used for this CT. COMPARISON: No relevant priors. FINDINGS: Normal bilateral petrous carotid arteries. [Calcific plaquing of the right cavernous carotid artery with a normal supraclinoid bifurcation. Calcific plaquing left cavernous carotid artery with a normal supraclinoid bifurcation. Normal right A1 segments of the anterior cerebral artery. Normal left A1 segments of the anterior cerebral artery. Normal intact anterior communicating artery (ACOM). Normal bilateral A2 segments of the anterior cerebral arteries. Normal right M1 and M2 segments of the middle cerebral arteries, with a normal M1 bifurcation. Normal left M1 and M2 segments of the middle cerebral arteries, with a normal M1 bifurcation. Normal right posterior communicating artery (PCOM). Normal left posterior communicating artery (PCOM). [Left vertebral is normal caliber. There is mildly narrowed distal right vertebral Normal basilar artery with a normal basilar bifurcation. The visualized bilateral superior cerebellar (SCA) arteries are normal. Normal bilateral P1, P2 and visualized P3 segments of the posterior cerebral arteries. There is no demonstrated aneurysm of the [place]. AORTIC ARCH: Normal visualized aortic arch. Normal origins of the brachiocephalic, left common carotid, and left subclavian arteries. RIGHT CAROTID ARTERIES: Normal right common carotid artery (CCA). Normal right common carotid bulb. Mild calcific plaquing of the origin of the right internal carotid (ICA) artery without a hemodynamically significant stenosis. Normal visualized cervical portion of the right internal carotid artery. Normal origin of the right external carotid artery (ECA). LEFT CAROTID ARTERIES: Normal left common carotid artery (CCA). Severe calcific plaquing of the left common carotid bulb with high-grade approximately 99% stenosis. Normal origin of the left internal carotid (ICA) artery without a hemodynamically significant stenosis. Normal visualized cervical portion of the left internal carotid artery. Normal origin of the left external carotid artery (ECA). VERTEBRAL ARTERIES: Normal left vertebral artery. Diffusely narrowed right vertebral which may be normal variant. CT/CTA Head AND Neck W/ Contrast IMPRESSION: Mild atherosclerotic disease in the brain.. Mild atherosclerotic disease in the right carotid and severe narrowing near occlusive segment of the left carotid bulb Catheter angiography recommended for more definitive evaluation if clinically warranted Electronically Signed: Dainel Mckeon MD at 19:29 EDT ,
--- NOTE | 2023-08-06 17:53 | EKG12_ITS ---
Test Reason : CHEST PAIN Blood Pressure : / mmHG Vent. Rate : 075 BPM Atrial Rate : 075 BPM P-R Int : 188 ms QRS Dur : 080 ms QT Int : 404 ms P-R-T Axes : 049 -04 040 degrees QTc Int : 451 ms Sinus rhythm with PAC's Minimal voltage criteria for LVH, may be normal variant ( R in aVL ) Borderline ECG Confirmed by Fernando Cameron ([id number]), city editor ASHWINI CALVERT ([id number]) on 08/08/2023 11:31:54 AM Referred By: Confirmed By:Fernando Cameron
--- NOTE | 2023-08-06 17:59 | EX.ED.DYSGE1 ---
HPI History of Present Illness Chief Complaint: Other, Pain/Inj Detail of Chief Complaint: Throat pain/pressure Informant: patient Narrative Narrative: Patient presents emergency department with right-sided throat pressure. Symptoms have been there for about 3 days. She denies any injury. She has history of chronic right shoulder pain. She states that she needs a right shoulder replacement. Patient also has history of problems with her carotid artery. Patient states that she sees vascular surgeon Dr. Small. She tells me that she has had some blockages there but has had some collateral flow as well and has not had any surgery. She not had prior stroke. She denies focal deficits. She denies difficulty with speech. [facility] Medical History (Updated 08/06/23 @ 20:[address] Zuleyka Ray, ) Hypertension Osteoporosis Fracture of orbit, ethmoid bone Cervical spondylosis Colitis Carotid stenosis Acute bronchitis Incontinence Chronic neck and back pain Thyroid disease Knee pain Diarrhea Hay fever Anemia Stomach ulcer Shoulder pain Hemorrhoids SOB (shortness of breath) Arthritis Dilated aortic root Elevated BUN Stenosis of right carotid artery Essential hypertension Cardiac murmur UTI (urinary tract infection) Closed comminuted fracture of left hip Fibromyalgia Raynauds syndrome Asthma Polymyalgia rheumatica Osteoarthritis Hypothyroidism Vasovagal syncope Hyperlipidemia Hypertension Home Medications ?Medication ?Instructions ?Recorded ?Last Taken ?Type aspirin 81 mg tablet,delayed 81 mg PO QHS heart 10/05/15 07/06/17 History release venlafaxine 75 mg tablet 75 mg PO QHS mood 10/05/15 07/06/17 History gabapentin 300 mg capsule 300 mg PO QHS pain 06/08/17 07/06/17 History acetaminophen 325 mg tablet 650 mg PO Q6H PRN Pain 06/27/18 Unknown History coenzyme Q10 100 mg capsule 100 mg PO DAILY 06/27/18 Unknown History pitavastatin calcium 4 mg tablet 4 mg PO DAILY 06/27/18 Unknown History (Livalo) ascorbic acid (vitamin C) 500 mg 500 mg PO DAILY 09/27/20 Unknown History tablet turmeric 400 mg capsule 400 mg PO DAILY 09/27/20 Unknown History vitamin B complex 1 tab PO DAILY 09/27/20 Unknown History collagen peptides bio + bovie PO 1XD 03/02/22 Unknown History hydrololyzed protein fluticasone propionate 50 2 spray intranasal DAILY PRN 03/02/22 Unknown History mcg/actuation nasal Allergy Symptoms spray,suspension (Flonase Allergy Relief) multivitamin 1 tab PO DAILY 03/02/22 Unknown History biotin 10,000 mcg capsule 10,000 mcg PO DAILY 06/06/22 Unknown History flaxseed oil 1,000 mg capsule 1,000 mg PO DAILY 02/09/23 Unknown History lisinopril 40 mg tablet 40 mg PO DAILY high blood pressure 02/09/23 Unknown Rx #90 tabs levothyroxine 25 mcg tablet 25 mcg PO .COMPLEX thyroid #96 tabs 06/08/23 Unknown Rx amlodipine 5 mg tablet 5 mg PO DAILY 07/24/23 Unknown History denosumab 60 mg/mL subcutaneous 60 mg subcut [id number] #1 mL 08/06/23 Unknown Rx syringe (Prolia) Allergy/AdvReac Type Severity Reaction Status Date / Time ceftriaxone (From Rocephin) Allergy Hives Verified 08/06/23 17:49 ciprofloxacin (From Cipro) Allergy Rash Verified 08/06/23 17:49 Penicillins Allergy Hives Verified 08/06/23 17:49 Sulfa (Sulfonamide Allergy Hives Verified 08/06/23 17:49 Antibiotics) vancomycin Allergy Hives Verified 08/06/23 17:49 tramadol AdvReac Nausea Verified 08/06/23 17:49 Family History Father CAD (coronary artery disease) Ulcer High cholesterol Alcoholism Bowel disease Cancer lung/copd Respiratory disease Peptic ulcer disease Mother Lung cancer Osteoporosis Thyroid disorder Arthritis Alcoholism Anxiety Autoimmune disorder sclerderma Cancer lung/copd Liver disease Mental disorder Respiratory disease Severe allergy Suicide attempt Grandfather Myocardial infarction one grandpa at age 55 and one grandpa age 30 Bowel disease Brother Peptic ulcer disease Surgical History History of hip replacement History of left knee replacement H/O colonoscopy H/O breast biopsy H/O bilateral breast reduction surgery S/P foot surgery History of hip surgery History of corneal transplant History of cataract surgery History of knee replacement procedure of right knee History of arthroscopic knee surgery History of repair of rotator cuff History of carpal tunnel surgery History of tonsillectomy Social History household members: spouse housing: house Smoking Status: Never smoker second hand exposure: No alcohol intake: current details: rare substance use type: does not use what type of physical activity do you participate in: none seatbelt use: always do you feel safe at home: Yes additional social history: Aspirin use daily. Ibuprofen use rarely/never. ROS ROS ED Review of Systems ROS Unobtainable: other Constitutional Constitutional ED: Reports lethargy; Denies chills, fever(s), sweats or weight loss Eyes Eyes: Denies blurry vision, change in vision or diplopia ENT ENT ED: Denies rhinorrhea or sore throat Cardiovascular Cardiovascular: Denies chest pain, orthopnea or racing heartbeat Respiratory/Chest Respiratory/Chest: Denies cough, dyspnea, dyspnea on exertion, orthopnea or sputum Gastrointestinal Gastrointestinal: Denies abdominal pain, diarrhea, nausea or vomiting Genitourinary Genitourinary ED: Denies dysuria, hematuria or urinary frequency Musculoskeletal Musculoskeletal: Reports neck pain and other; Denies arthralgias, back pain or myalgias Integumentary Denies abscess, Abrasions or rash Neurologic Neurologic: Denies headache(s) or weakness Psychiatric Psychiatric: Denies anxiety, depression or suicidal thoughts Endocrine Endocrinology: Denies polydipsia, polyphagia or polyuria Hematologic/Lymphatic Hematologic/Lymphatic: Denies easy bleeding, easy bruising or lymphadenopathy Allergic/Immunologic Allergic/Immunologic ED: Denies mouth swelling, tongue swelling or urticaria EXAM Physical Exam Const Vital Signs: 08/06/23 17:27 08/06/23 18:30 08/06/23 19:17 Temperature 98 F Temperature Source Temporal Pulse Rate 76 80 85 Respiratory Rate 16 15 18 Blood Pressure 188/96 H 181/55 H 118/73 Blood Pressure Mean 126 97 88 Pulse Ox 96 95 95 Oxygen Delivery Method Room Air Room Air Room Air Positive well nourished and well developed General Appearance ED: well developed and NAD HEENT Reports TM's clear and moist mucous membranes normocephalic and atraumatic; Negative for trauma or tenderness Tympanic Membrane ED: Yes TM's clear Eyes PERRL and EOMs intact bilaterally General Eye ED: Negative for pale conjunctiva or scleral icterus Neck no lymphadenopathy, supple and no JVD Neck Narrative: Slight bruit noted right carotid. No neck masses palpated. No adenopathy. General: Negative for tenderness Chest Wall inspection of chest normal and palpation of chest normal Chest: Negative for tenderness Resp normal respiratory effort and clear to auscultation bilaterally Effort and Inspection: Negative for respiratory distress or pain with movement Auscultation: Negative for rhonchi, wheezes or diminished lung sounds Cardio regular rate, regular rhythm, S1 normal heart sound, S2 normal heart sound and no murmurs Peripheral Pulses: pulses 2+ throughout GI normal to inspection, nondistended, normoactive bowel sounds, soft to palpation, non-tender, non-distended and no masses Back/Spine no CVA tenderness and no thoracic nor lumbar tenderness Extremity normal to inspection General Extremety ED: Negative for edema General Extremity: Negative for edema Neuro oriented x3, CN's II-XII intact bilaterally, no sensory deficits noted and gait normal Sensorium / Orientation: awake, alert, oriented to person, oriented to place and oriented to time Motor Exam: strength 5/5 throughout and strength abnormal Psych mental status grossly normal Skin no rashes or lesions noted and no wounds MDM MDM MDM Narrative Medical decision making narrative: Patient presents to the ER with right-sided neck pain and some history of blockage to right carotid artery. She has been also having chronic right shoulder pain. I do hear a slight bruit on the right. IV line established. CBC with differential white count of 8.3 with hemoglobin 10.8 and platelet count of 293. Chemistries unremarkable. BUN 34 g 1.34. Troponin normal at 9. EKG obtained arrival showed a sinus rhythm with ventricular rate of 75 bpm with occasional PACs. Patient had a CTA of the head and neck that showed an unremarkable right carotid artery and intracranial vasculature. Radiology felt there might be a 99% occlusion of the left carotid bulb area. I reviewed her CTA from November 2022 which is less than a year ago and at that time she had 50% stenosis on both sides. She has no symptoms whatsoever of stroke care. Discussed case with her vascular surgeon Dr. Small who who did not feel that this was likely possible to be a significant severe stenosis but he would review the images and follow-up with the patient. She is on a statin and aspirin. I feel patient is safe to discharge to home. She will follow-up with her vascular surgeon next week. Lab Data Attestation: I reviewed the patient's lab results. Labs: Laboratory Results - last 24 hr 08/06/23 18:04 WBC 8.3 RBC 3.71 L Hgb 10.8 L Hct 33.6 L MCV 90.6 MCH 29.1 MCHC 32.1 RDW Std Deviation 47.7 H RDW Coeff of Sam 14.3 Plt Count 293 MPV 10.4 Immature Gran % (Auto) 0.400 Neut % (Auto) 62.5 Lymph % (Auto) 23.8 [place] % (Auto) 7.5 Eos % (Auto) 4.8 Baso % (Auto) 1.0 Absolute Neuts (auto) 5.2 Absolute Lymphs (auto) 1.98 Nucleated RBC % 0 Sodium 134 L Potassium 4.6 Chloride 102 Carbon Dioxide 24.0 Anion Gap 8 BUN 34 H Creatinine 1.34 H Estim Creat Clear Calc 26.33 Est GFR (MDRD) Af Amer 49 L Est GFR (MDRD) Non-Af 40 L BUN/Creatinine Ratio 25.4 H Glucose 115 H Calcium 9.1 Troponin I High Sens 9 Radiography Diagnostic Testing: Clinical Impression(s) from Imaging Studies Head/Neck CTA 08/06/23 17:53 IMPRESSION: Mild atherosclerotic disease in the brain.. Mild atherosclerotic disease in the right carotid and severe narrowing near occlusive segment of the left carotid bulb Catheter angiography recommended for more definitive evaluation if clinically warranted Electronically Signed: Daniel Mckeon MD at 19:29 EDT , EKG Initial EKG: Attestation: I personally reviewed and interpreted this EKG as follows: Comments: Sinus rhythm with ventricular rate of 75 bpm with PACs. Discharge Plan Triage Chief Complaint: Other, Pain/Inj ED Provider: Zuleyka Ray Dx/Rx/DC Orders Clinical Impression: Neck pain Instructions: ED Neck Pain Prescriptions: No Action gabapentin 300 mg capsule 300 mg PO QHS Livalo 4 mg tablet 4 mg PO DAILY acetaminophen 325 mg tablet 650 mg PO Q6H PRN (Reason: Pain) coenzyme Q10 100 mg capsule 100 mg PO DAILY fluticasone propionate [Flonase Allergy Relief] 50 mcg/actuation spray,suspension 2 spray INTRANASAL DAILY PRN (Reason: Allergy Symptoms) vitamin B complex Tablet 1 tab PO DAILY ascorbic acid (vitamin C) 500 mg tablet 500 mg PO DAILY turmeric 400 mg capsule 400 mg PO DAILY multivitamin Tablet 1 tab PO DAILY collagen peptides bio + bovie hydrololyzed protein PO 1XD biotin 10,000 mcg capsule 10,000 mcg PO DAILY flaxseed oil 1,000 mg capsule 1,000 mg PO DAILY Rx Instructions: administer with a meal lisinopril 40 mg tablet 40 mg PO DAILY Qty: 90 3RF amlodipine 5 mg tablet 5 mg PO DAILY venlafaxine 75 MG tablet 75 mg PO QHS aspirin 81 MG tablet 81 mg PO QHS levothyroxine 25 mcg tablet 25 mcg PO .COMPLEX Qty: 96 3RF Rx Instructions: 25 mcg orally take 1 tab daily except Sunday take 1 1/2 tabs Prolia 60 mg/mL syringe 60 mg subcut [id number] Qty: 1 1RF Primary Care Provider: Melisa Lucero Referrals: Ibrahima Small MD [Med Staff - Active Staff] - 5-7 Days Melisa Lucero DO [Primary Care Provider] - Activity Restrictions/Additional Instructions: Follow-up with Dr. Small next week in the office. Print Language: Mosotho Disposition Disposition: Home, Self Care
[2023-08-06] MEDS: 0.9% Normal Saline (1000mL) 1,000 ML 150 ML IV (18:09)
[2023-08-06 18:15] LABS: Absolute Lymphocyte Count 1.98 X10^3/uL (0.83-4.51); Absolute Neutrophil Count 5.2 X10^3/uL (2.0-7.7); Basophil# 0.08 X10^3/uL; Eosinophils% 4.8 % (0-5); Hematocrit 33.6 % (37-47); Hemoglobin 10.8 g/dL (12.0-15.0); Lymphocyte # 1.98 X10^3/ul (0.83-4.51); Lymphocyte % 23.8 % (19-41); Mean Corp Hgb Conc 32.1 g/dL (32-36); Mean Corpuscular Hgb 29.1 pg (27.0-32.0); Mean Corpuscular Volume 90.6 fL (81-99); Mean Platelet Vol. 10.4 fl (6.2-12.0); Monocyte# 0.62 X10^3/uL; Monocyte% 7.5 % (0-10); NRBC Flagged by Analyzer 0 % (0-5); Neutrophil # 5.21 X10^3/uL (2.7-7.7); Neutrophil % 62.5 % (47-70); Platelet Count 293 K/mm3 (150-450); RBC Distribution Width CV 14.3 % (11.6-14.6); RBC Distribution Width SD 47.7 fl (35.1-43.9); Red Blood Count 3.71 M/mm3 (4.2-5.4); White Blood Count 8.3 K/mm3 (4.4-11.0)
[2023-08-06 18:30] VITALS: BP 181/55; PULSE 80; RESP 15; O2SAT 95
[2023-08-06 18:31] LABS: Anion Gap 8 (5-15); BUN 34 mg/dL (7-18); BUN/Creat Ratio 25.4 RATIO (10-20); Calcium,Total 9.1 mg/dL (8.5-10.1); Chloride 102 mmol/L (98-107); Creatinine, Serum 1.34 mg/dL (0.55-1.02); EST Glomerular Filtration Rate 40 mL/min (>60); Est Glom Filt Rate - Afr Amer 49 mL/min (>60); Estimated Creatinine Clearance 26.33 ml/min; Glucose 115 mg/dL (74-106); Potassium 4.6 mmol/L (3.5-5.1); Sodium Level 134 mmol/L (136-145); Troponin-I HS 9 pg/mL (3.0-54.0)
[2023-08-06 19:17] VITALS: BP 118/73; PULSE 85; RESP 18; O2SAT 95
[2023-08-06 20:11] VITALS: BP 170/88; PULSE 71; RESP 18; O2SAT 97
[2023-08-06 20:21] VITALS: BP 177/78; PULSE 78; RESP 18; TEMP 36.6; O2SAT 97
== END 2023-08-06 20:23 | disposition home or self-care (01) ==
PROVIDERS: Emergency Provider Emergency Medicine; PCP Internal Medicine; Visit Provider Emergency Medicine
DX: M54.2 Cervicalgia (principal); I65.23 Occlusion and stenosis of bilateral carotid arteries; R07.0 Pain in throat; I10 Essential (primary) hypertension; G89.29 Other chronic pain; M25.511 Pain in right shoulder; E78.5 Hyperlipidemia, unspecified; E03.9 Hypothyroidism, unspecified
CPT/HCPCS: 70496; 70498; 80048; 84484; 85025; 93005; 96360; 96361; 99284; J7030; Q9967; A4216

== ENCOUNTER → 2023-08-13 | Outpatient (CLI) | payer MEDICARE, OTHER, SELFPAY ==
[2023-08-13 17:51] LABS: Absolute Lymphocyte Count 2.33 X10^3/uL (0.83-4.51); Absolute Neutrophil Count 5.4 X10^3/uL (2.0-7.7); Basophil# 0.09 X10^3/uL; Eosinophil# 0.21 X10^3/uL; Eosinophils% 2.4 % (0-5); Hematocrit 36.7 % (37-47); Hemoglobin 11.6 g/dL (12.0-15.0); Lymphocyte # 2.33 X10^3/ul (0.83-4.51); Lymphocyte % 26.3 % (19-41); Mean Corp Hgb Conc 31.6 g/dL (32-36); Mean Corpuscular Hgb 28.9 pg (27.0-32.0); Mean Corpuscular Volume 91.3 fL (81-99); Mean Platelet Vol. 10.5 fl (6.2-12.0); Monocyte# 0.82 X10^3/uL; Monocyte% 9.2 % (0-10); NRBC Flagged by Analyzer 0 % (0-5); Neutrophil # 5.39 X10^3/uL (2.7-7.7); Neutrophil % 60.8 % (47-70); Platelet Count 321 K/mm3 (150-450); RBC Distribution Width CV 14.3 % (11.6-14.6); RBC Distribution Width SD 47.7 fl (35.1-43.9); RET-HE 33.7 pg (30-35); Red Blood Count 4.02 M/mm3 (4.2-5.4); Reticulocyte Count 1.83 % (0.5-1.5); White Blood Count 8.9 K/mm3 (4.4-11.0)
[2023-08-13 19:03] LABS: Anion Gap 9 (5-15); BUN 39 mg/dL (7-18); BUN/Creat Ratio 32.2 RATIO (10-20); Calcium,Total 10.2 mg/dL (8.5-10.1); Chloride 105 mmol/L (98-107); Creatinine, Serum 1.21 mg/dL (0.55-1.02); EST Glomerular Filtration Rate 45 mL/min (>60); Est Glom Filt Rate - Afr Amer 55 mL/min (>60); Ferritin 42 ng/mL (8-252); Folates, (Folic Acid) > 100.00 ng/mL (3.1-55.4); Glucose 93 mg/dL (74-106); Iron 85 ug/dL (50-170); Iron Binding Capacity,Total 409 ug/dL (250-450); LDH 227 U/L (84-246); PERCENT IRON SATURATION 20.8 % (15.0-55.0); Sodium Level 139 mmol/L (136-145)
[2023-08-13 21:50] LABS: Vitamin B12 604 pg/mL (211-911)
[2023-08-17 11:08] LABS: PROEL- A/G Ratio 1.4 (0.7-1.7); PROEL- Alpha-1 Globulin 0.3 g/dL (0.0-0.4); PROEL- Alpha-2 Globulin 0.9 g/dL (0.4-1.0); PROEL- Beta Globulin 1.1 g/dL (0.7-1.3); PROEL- Gamma Globulin 0.6 g/dL (0.4-1.8); PROEL- Globulin, Total 2.9 g/dL (2.2-3.9); PROEL- TOTAL PROTEIN 6.9 g/dL (6.0-8.5); PROEL-M-Spike Not Observed g/dL (Not Observed); PROELU- Alpha-1-Globulin,Ur 6.5 % (.); PROELU- Alpha-2-Globulin,Ur 11.2 % (.); PROELU- Beta Globulin, Ur 13.2 % (.); PROELU- Gamma Globulin, Ur 4.1 % (.); Total Protein, Ur 31.2 mg/dL (Not Estab.)
== END | disposition home or self-care (01) ==
LOC: MTLAB 16:25
PROVIDERS: PCP Internal Medicine; Referring Provider Internal Medicine; Visit Provider Internal Medicine
DX: N18.32 Chronic kidney disease, stage 3b (principal); D64.9 Anemia, unspecified
CPT/HCPCS: 36415; 80048; 82607; 82728; 82746; 83540; 83550; 83615; 84165; 84166; 85025; 85045; 86880

== ENCOUNTER → 2023-08-15 | Outpatient (CLI) | payer MEDICARE, OTHER, SELFPAY ==
--- NOTE | 2023-08-15 17:52 | CT_ITS ---
STUDY: CT CHEST WITHOUT CONTRAST REASON FOR EXAM: Female, 83 years old. Lung nodule RADIATION DOSAGE (If Supplied By Facility): CTDIvol = ( 9.69 ) mGy, DLP = ( 317.23 ) mGycm TECHNIQUE: Transaxial imaging was performed without the administration of intravenous contrast material. Individualized dose optimization techniques were used for this CT. COMPARISON: CTA of the chest dated December 25, 2022 FINDINGS: Redemonstration of mild bronchiectasis in the bilateral lower lobe perihilar regions. Redemonstration of mild interstitial scarring and fibrosis with minor tree-in-bud nodularity in the central and medial aspect of the left lower lobe. A moderate sized linear scar is present across the right lower lobe. No pneumonic consolidation is present. No active pulmonary edema. No nodules or spiculated lesions are seen in either lung. No pleural effusion is present. No lytic or blastic lesions of the bony structures are present. There is no demonstrated pleural abnormality. Normal heart and pericardium. There are calcifications of the coronary arteries. Normal mediastinum. Normal hilar regions. Normal unenhanced pulmonary arteries. There is atherosclerotic calcification of the aortic arch with tortuosity and elongation of the aortic arch and descending thoracic aorta. Mild aneurysmal dilatation of 4.24 cm measured on image 49/112 series 2. There are multi-level degenerative changes of the thoracic spine. There is no demonstrated abnormality of the visualized upper abdomen. CT/Chest without Contrast IMPRESSION: 1. Interstitial fibrotic scarring of the lungs. 2. Mild bilateral lower lobe bronchiectasis 3. No demonstrated nodules or suspicious lesion Electronically Signed: Isaac Henson MD at 9:00 EDT Reading Location ID and State: [facility] / [place] , Service support ,
== END | disposition home or self-care (01) ==
LOC: CT 17:44
PROVIDERS: PCP Internal Medicine; Referring Provider Internal Medicine; Visit Provider Internal Medicine
DX: R91.1 Solitary pulmonary nodule (principal)
CPT/HCPCS: 71250

== ENCOUNTER → 2023-10-05 | Outpatient (CLI) | payer MEDICARE, OTHER, SELFPAY | END | disposition home or self-care (01) | LOC: PSN 10:30 | PROVIDERS: PCP Internal Medicine; Referring Provider Internal Medicine; Visit Provider Internal Medicine | DX: J98.4 Other disorders of lung (principal) | CPT/HCPCS: 94060; 94726; 94729; 94762 ==

== ENCOUNTER → 2023-12-12 | Outpatient (CLI) | payer MEDICARE, OTHER, SELFPAY ==
--- NOTE | 2023-12-12 13:49 | ECHOD_ITS ---
Reason For Study: SOB, Pulmonary Fibrosis Procedure This was a 2D Doppler, Color Flow transthoracic echocardiogram. The study was technically difficult. Exam performed in department. Left Ventricle Normal LV size. Mid cavitary false tendon noted. Left ventricular systolic function is normal. The left ventricular ejection fraction is 60 %. Stage 1 diastolic dysfunction. No regional wall motion abnormalities noted. Right Ventricle Normal RV size. Normal systolic function. Atria Normal left atrium. Normal right atrium. Mitral Valve There is mild mitral annular calcification. Tricuspid Valve Normal tricuspid valve. Mild tricuspid valve insufficiency. Aortic Valve Trisinus/trileaflet aortic valve. Mild focal aortic valve calcification. Pulmonic Valve Normal pulmonic valve. Great Vessels Normal aortic root. The pulmonary artery is normal size. Inferior vena cava collapse with respiration. Pericardium/Pleural No pericardial effusion. MMode/2D Measurements & Calculations LVIDd: 3.8 cm IVSd: 1.3 cm Ao root diam: 3.7 cm LVIDs: 2.5 cm LVPWd: 1.0 cm LA dimension: 3.4 cm RVDd: 3.4 cm FS: 34.4 % asc Aorta Diam: 3.9 cm LAV(MOD-bp): 45.9 ml LA A4 area: 15.8 cm2 LAV(MOD-bp) Indexed: 29.9 ml/m2 LAV(MOD-sp2): 49.7 ml LAV(MOD-sp4): 40.8 ml LA dimension(2D): 4.1 cm TAPSE: 1.3 cm Time Measurements MV dec time: 0.34 sec Doppler Measurements & Calculations MV E max antonino: 53.8 cm/sec Lat Peak E' Antonino: 8.5 cm/sec Med Peak E' Antonino: 3.9 cm/sec MV A max antonino: 96.9 cm/sec E/E' lat: 6.3 E/E' med: 13.8 MV E/A: 0.55 MV V2 max: 117.3 cm/sec MV P1/2t max antonino: 63.3 cm/sec Ao V2 max: 144.0 cm/sec MV max P.5 mmHg MV P1/2t: 127.3 msec Ao max P.3 mmHg MV V2 mean: 48.5 cm/sec MV mean P.2 mmHg MV dec slope: 145.5 cm/sec2 MV V2 VTI: 32.5 cm MVA(P1/2t): 1.7 cm2 LV V1 max: 126.3 cm/sec PA V2 max: 123.5 cm/sec TR max antonino: 198.7 cm/sec LV V1 max P.4 mmHg PA max PG (full): 4.3 mmHg TR max P.8 mmHg ECHO/Echo Complete Interpretation Summary Normal LV size. Left ventricular systolic function is normal. The left ventricular ejection fraction is 60 %. Stage 1 diastolic dysfunction. Ordering Physician: Simone Venegas V Referring Physician: Simone Venegas V Performed By: Artur Hsieh RCS
[2023-12-12 15:34] LABS: Absolute Lymphocyte Count 1.94 X10^3/uL (0.83-4.51); Absolute Neutrophil Count 3.7 X10^3/uL (2.0-7.7); Basophil# 0.08 X10^3/uL; Basophil% 1.2 % (0-1); Eosinophil# 0.28 X10^3/uL; Eosinophils% 4.1 % (0-5); Hematocrit 35.9 % (37-47); Hemoglobin 11.6 g/dL (12.0-15.0); Lymphocyte # 1.94 X10^3/ul (0.83-4.51); Lymphocyte % 28.6 % (19-41); Mean Corp Hgb Conc 32.3 g/dL (32-36); Mean Corpuscular Hgb 29.5 pg (27.0-32.0); Mean Corpuscular Volume 91.3 fL (81-99); Mean Platelet Vol. 10.5 fl (6.2-12.0); Monocyte# 0.72 X10^3/uL; Monocyte% 10.6 % (0-10); NRBC Flagged by Analyzer 0 % (0-5); Neutrophil # 3.74 X10^3/uL (2.7-7.7); Neutrophil % 55.1 % (47-70); Platelet Count 297 K/mm3 (150-450); RBC Distribution Width CV 13.8 % (11.6-14.6); RBC Distribution Width SD 46.6 fl (35.1-43.9); Red Blood Count 3.93 M/mm3 (4.2-5.4); White Blood Count 6.8 K/mm3 (4.4-11.0)
[2023-12-14 12:10] LABS: Anti-Scleroderma-70 AB <0.2 AI (0.0-0.9); Anti-dsDNA Ab 5 IU/mL (0-9); RNP Ab <0.2 AI (0.0-0.9); SJOGREN'S Anti-SS-A test < 0.2 AI (0.0-0.9); SJOGREN'S Anti-SS-B test < 0.2 AI (0.0-0.9)
[2023-12-14 14:10] LABS: Angiotensin Convert Enzyme < 15 U/L (14-82); Anti-Smooth Muscle ABS 3 Units (0-19); CCP IgG Antibodies 42 units (0-19); Cytoplasmic Ab (C-ANCA) <1:20 titer (Neg:<1:20); Perinuclear Ab (P-ANCA) <1:20 titer (Neg:<1:20)
== END | disposition home or self-care (01) ==
PROVIDERS: PCP Internal Medicine; Referring Provider Internal Medicine Pulmonary Disease; Visit Provider Internal Medicine Pulmonary Disease
DX: J84.10 Pulmonary fibrosis, unspecified (principal); R06.02 Shortness of breath
CPT/HCPCS: 36415; 82164; 83516; 85025; 85379; 86037; 86140; 86200; 86225; 86235; 93306

== ENCOUNTER → 2024-01-21 | Outpatient (CLI) | payer MEDICARE, OTHER, SELFPAY ==
--- NOTE | 2024-01-21 14:00 | BI_ITS ---
MAMMOGRAPHY - BILATERAL SCREENING REASON FOR EXAM: Female, 83 years old. Routine annual screening examination. PERTINENT HISTORY: Non-contributory. Bilateral breast reduction surgery. Bilateral needle biopsies. Chronic inversion of the nipples. TECHNIQUE: Digital bilateral breast radha (3D mammographic acquisition) in the CC and MLO projections. 2-D mediolateral oblique (MLO) and craniocaudad (CC) views of both breasts were obtained. CAD: Full Field Digital Mammography with Computer Added Detection was performed. COMPARISON: Comparison is made with prior study dated January 18, 2023 and January 16, 2022. FINDINGS: Breast Composition: There are scattered areas of fibroglandular density. There are no dominant masses or suspicious calcifications. Stable retraction of the nipple complex bilaterally. A tissue clip marker is in the central portion of the left breast. A tissue clip marker is also seen in the central medial portion of the right breast. No other significant abnormalities are identified. There has been no significant change since the prior study. BI/SCRN MAMM (CAD)W/RADHA BILAT IMPRESSION: Stable bilateral screening mammogram. Yearly follow-up mammogram recommended. (A) ASSESSMENT CATEGORY: BIRADS Category 2: Benign. A letter regarding these results will be sent to the patient by the facility within 30 days. Approximately 10% of breast cancers are not detected by mammography. A normal mammogram should not delay biopsy of a clinically suspicious abnormality. [id number] Electronically Signed: Wilbert Garcia MD at 14:35 EST ,
== END | disposition home or self-care (01) ==
LOC: OPBI 13:59
PROVIDERS: PCP Internal Medicine; Referring Provider Internal Medicine; Visit Provider Internal Medicine
DX: Z12.31 Encounter for screening mammogram for malignant neoplasm of breast (principal); N64.59 Other signs and symptoms in breast
CPT/HCPCS: 77063; 77067

== ENCOUNTER → 2024-01-31 | Outpatient (CLI) | payer MEDICARE, OTHER, SELFPAY ==
[2024-01-31 17:40] LABS: Erythrocyte Sedimentation Rate 6 mm/hr (0-30)
[2024-01-31 17:50] LABS: Rheumatoid Factor < 10.0 IU/mL (<15)
== END | disposition home or self-care (01) ==
PROVIDERS: PCP Internal Medicine; Referring Provider Internal Medicine Pulmonary Disease; Visit Provider Internal Medicine Pulmonary Disease
DX: J84.10 Pulmonary fibrosis, unspecified (principal)
CPT/HCPCS: 36415; 85652; 86431

== ENCOUNTER → 2024-06-06 | Outpatient (CLI) | payer MEDICARE, OTHER, SELFPAY ==
[2024-06-06 15:34] LABS: ALB/GLOB Ratio 1.7 RATIO (0.9-2.4); AST(SGOT) 25 U/L (<=31); Alanine Aminotransfer ALT/SGPT 17 U/L (<=34); Albumin, Serum 4.7 g/dL (3.4-4.8); Alkaline Phosphatase 74 U/L (35-104); Anion Gap 13 (5-15); BUN 40 mg/dL (4-19); BUN/Creat Ratio 33.6 RATIO (10-20); Carbon Dioxide 22.5 mmol/L (21.0-32.0); Chloride 102 mmol/L (98-108); Creatinine, Serum 1.18 mg/dL (0.70-1.20); EST Glomerular Filtration Rate 46 (>60); Globulin 2.8 g/dL (2.2-4.2); Glucose 110 mg/dL (70-99); Potassium 4.7 mmol/L (3.3-5.1); Protein, Total 7.6 g/dL (5.9-8.4); Sodium Level 138 mmol/L (133-145); Total Bilirubin 0.23 mg/dL (0.00-1.30); Vitamin D,25 Hydroxy 80.7 ng/mL (30-100)
== END | disposition home or self-care (01) ==
LOC: LAB 12:30
PROVIDERS: PCP Internal Medicine; Referring Provider Internal Medicine Endocrinology, Diabetes & Metabolism; Visit Provider Internal Medicine Endocrinology, Diabetes & Metabolism
DX: M81.0 Age-related osteoporosis without current pathological fracture (principal); E03.9 Hypothyroidism, unspecified; E55.9 Vitamin D deficiency, unspecified
CPT/HCPCS: 36415; 80053; 82306; 84439; 84443

== ENCOUNTER → 2024-06-23 | Outpatient (CLI) | payer MEDICARE, OTHER, SELFPAY | END | disposition home or self-care (01) | LOC: LABSPEC 07:51 | PROVIDERS: PCP Internal Medicine; Referring Provider Physician Assistant; Visit Provider Physician Assistant | DX: R82.90 Unspecified abnormal findings in urine (principal) | CPT/HCPCS: 87086 ==

== ENCOUNTER → 2024-08-25 | Outpatient (CLI) | payer MEDICARE, OTHER, SELFPAY ==
--- NOTE | 2024-08-25 18:15 | CT_ITS ---
EXAM: CT Chest Without Intravenous Contrast CLINICAL INDICATION: PULM NODULE TECHNIQUE: Axial computed tomography images of the chest without intravenous contrast. This CT exam was performed using one or more of the following dose reduction techniques: automated exposure control, adjustment of the mA and/or kV according to patient size, and/or use of iterative reconstruction technique. COMPARISON: CT Chest dated 08/15/2023 FINDINGS: ARTIFACTS: Motion artifact. LUNGS AND PLEURAL SPACES: Mild lung emphysema. Right apical scarring. Bronchiectasis of the lower lobes, bilaterally. No consolidation. No significant effusion. No pneumothorax. No new suspicious pulmonary nodules. HEART: Unremarkable. No cardiomegaly. No significant pericardial effusion. No significant coronary artery calcifications. MEDIASTINUM: A few prominent mediastinal lymph nodes measuring up to 6 mm. BONES/JOINTS: Total right shoulder replacement resulting in beam hardening artifacts. No acute fracture. SOFT TISSUES: Unremarkable. VASCULATURE: Scattered calcified atherosclerotic disease of aorta. No thoracic aortic aneurysm. LYMPH NODES: See above. CT/Chest without Contrast IMPRESSION: 1. No new suspicious pulmonary nodules. 2. Continue low-dose CT scan of the chest in 12 months is recommended. Reading Location: [facility]
== END | disposition home or self-care (01) ==
LOC: CT 17:55
PROVIDERS: PCP Internal Medicine; Referring Provider Internal Medicine Pulmonary Disease; Visit Provider Internal Medicine Pulmonary Disease
DX: R91.1 Solitary pulmonary nodule (principal)
CPT/HCPCS: 71250

== ENCOUNTER → 2024-10-02 | Outpatient (CLI) | payer MEDICARE, OTHER, SELFPAY ==
[2024-10-02 18:31] LABS: Anion Gap 16 (5-15); BUN 33 mg/dL (4-19); BUN/Creat Ratio 26.2 RATIO (10-20); Calcium,Total 9.9 mg/dL (7.6-11.0); Carbon Dioxide 21.5 mmol/L (21.0-32.0); Chloride 101 mmol/L (98-108); Glucose 106 mg/dL (70-99); Potassium 4.8 mmol/L (3.3-5.1)
== END | disposition home or self-care (01) ==
LOC: LAB 16:21
PROVIDERS: PCP Internal Medicine; Referring Provider Nurse Practitioner Gerontology; Visit Provider Nurse Practitioner Gerontology
DX: I10 Essential (primary) hypertension (principal)
CPT/HCPCS: 36415; 80048

== ENCOUNTER → 2024-10-08 | Outpatient (CLI) | payer MEDICARE, OTHER, SELFPAY | END | disposition home or self-care (01) | LOC: PSN 08:23 | PROVIDERS: PCP Internal Medicine; Referring Provider Nurse Practitioner Gerontology; Visit Provider Nurse Practitioner Gerontology | DX: I49.1 Atrial premature depolarization (principal) | CPT/HCPCS: 93225; 93226 ==

== ENCOUNTER → 2024-10-24 | Outpatient (CLI) | payer MEDICARE, OTHER, SELFPAY ==
[2024-10-24 16:44] LABS: Hematocrit 35.5 % (37-47); Hemoglobin 11.4 g/dL (12.0-15.0); Immature Granulocytes Count 0.040 X10^3/uL (0.0-0.0); Mean Corp Hgb Conc 32.1 g/dL (32-36); Mean Corpuscular Volume 89.2 fL (81-99); Mean Platelet Vol. 10.9 fl (6.2-12.0); NRBC Flagged by Analyzer 0 % (0-5); Platelet Count 275 K/mm3 (150-450); RBC Distribution Width CV 14.7 % (11.6-14.6); RBC Distribution Width SD 47.8 fl (35.1-43.9); Red Blood Count 3.98 M/mm3 (4.2-5.4); White Blood Count 8.5 K/mm3 (4.4-11.0)
[2024-10-24 17:15] LABS: CRP 10.20 mg/L (0.0-3.0)
== END | disposition home or self-care (01) ==
LOC: LAB 15:18
PROVIDERS: PCP Internal Medicine; Referring Provider Specialist; Visit Provider Specialist
DX: T84.84XA Pain due to internal orthopedic prosthetic devices, implants and grafts, initial encounter (principal); T84.53XA Infection and inflammatory reaction due to internal right knee prosthesis, initial encounter
CPT/HCPCS: 36415; 85025; 85652; 86140

== ENCOUNTER → 2024-11-17 | Outpatient (CLI) | payer MEDICARE, OTHER, SELFPAY ==
--- NOTE | 2024-11-17 13:32 | STE_ITS ---
Reason For Study Reason For Study: Arrhythmia Stress Results Protocol: Dobutamine Stress Echo Maximum Predicted HR: 138 bpm Target HR: 117 bpm % Maximum Predicted HR: 97 % DurationHeart Rate Stage (mm:ss) (bpm) BP Comment Baseline 49 130/55No Chest Pain DSE 10 MCG 3:58 60 117/53No Chest Pain DSE 20 MCG 3:00 93 124/44No Chest Pain DSE 30 MCG 3:12 107 122/60No Chest Pain DSE 40 MCG 3:00 134 140/64No Chest Pain; Atropine 0.25 MG IVP Recovery 92 112/46No Chest Pain Stress Duration: 13:10 mm:ss Maximum Stress HR: 134 bpm METS: 1 Baseline Echocardiogram Findings Stress Echo Wall motion Data Resting WM Intermediate WM Stress WM ECHO/Stress Test Echo w/o Contrast Interpretation Summary Dobutamine stress echocardiogram. 84-year-old lady with a history of cardiac arrhythmias. Stress protocol: Resting EKG demonstrates sinus rhythm with a rate of 60 bpm blood pressure 130/ 55 mmHg. Dobutamine was infused starting at 10 mcg/kg/min increasing in 3-minute aliquots to a peak of 40 mcg/kg/min. Ajay tyler required 0.25 mg of atropine to attain target heart rate. The patient maintained sinus rhythm throughout the re cording. At rest there were no ST or T wave changes noted to suggest resting ischemia and at peak infusion the maximum heart rate attained was 134 bpm which was 97% of maximum. Heart rate there were no EKG changes noted to suggest ische aura. The peak blood pressure was 140/64 mmHg. No chest pain was noted and no arrhythmias were present. Dobutamine stress echocardiogram. Resting echocardiogram demonstrated an ejection fraction of 65% with no wall mo tion abnormalities present. With low-dose and high dose dobutamine infusion there was thickening of all [place] reduction o f left ventricular cavity size peaking of ejection fraction around 80% with near chamber obliteration. No new wall motion abnormalities were noted to suggest ischemia. Conclusion: Dobutamine stress echocardiogram with no evidence of resting ischemia, low dose ischemia, or high dose ischemia present. Ordering Physician: Jinny Chris Referring Physician: Jinny Chris Performed By: Naomie Aguila RCS
== END | disposition home or self-care (01) ==
LOC: CVS 13:31
PROVIDERS: PCP Internal Medicine; Referring Provider Nurse Practitioner Gerontology; Visit Provider Nurse Practitioner Gerontology
DX: I49.9 Cardiac arrhythmia, unspecified (principal); R94.31 Abnormal electrocardiogram [ECG] [EKG]
CPT/HCPCS: 93017; 93350; A4216

== ENCOUNTER → 2024-12-02 | Outpatient (CLI) | payer MEDICARE, OTHER, SELFPAY ==
--- NOTE | 2024-12-02 16:56 | MRI_ITS ---
PROCEDURE: SPINE LUMBAR (ROUTINE) 12/02/2024 REASON FOR EXAM: PAIN, DDD, SCOLIOSIS TECHNIQUE: Procedure Code: MRISPL Modality: MR Procedure: SPINE LUMBAR (ROUTINE) COMPARISON: None. FINDINGS: Vertebrae: Preserved in height and signal. Alignment: Anterolisthesis L4 on L5 by 3 mm. Retrolisthesis T12 on L1 and L1-L2 and L2 on L3 by 2-3 mm each. Conus Medullaris: Unremarkable. T12-L1: Disc desiccation. Disc bulge. Facet joint arthropathy. Mild bilateral foramina stenosis. Mild canal stenosis. L1-2: Disc bulge. Disc desiccation. Facet joint arthropathy. Mild inferior bilateral foramina stenosis. Mild canal stenosis. L2-3: Disc desiccation. Disc bulge. Facet joint arthropathy fluid effusion. Mild bilateral foramina stenosis. No significant canal stenosis. L3-4: Disc desiccation. A 2 mm disc protrusion. Facet joint arthropathy. No significant foraminal or canal stenosis. L4-5: Disc space narrowing. Asymmetric disc bulge. Facet joint arthropathy. Severe right and mild left foramina stenosis. Mild canal stenosis. L5-S1: Uncovered disc bulge. Extensive facet joints arthropathy with fluid effusion. Mild bilateral foramina stenosis. Mild canal stenosis. Sacrum: Unremarkable. 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 For example L4-L5, severe right and mild left foramina stenosis. No significan t canal stenosis. Reading Location: [facility]
== END | disposition home or self-care (01) ==
LOC: MRI 16:53
PROVIDERS: PCP Internal Medicine; Referring Provider Student in an Organized Health Care Education/Training Program; Visit Provider Student in an Organized Health Care Education/Training Program
DX: M51.362 Other intervertebral disc degeneration, lumbar region with discogenic back pain and lower extremity pain (principal); M48.062 Spinal stenosis, lumbar region with neurogenic claudication
CPT/HCPCS: 72148

== ENCOUNTER → 2025-01-16 | Outpatient (CLI) | payer MEDICARE, SELFPAY ==
[2025-01-16 12:33] LABS: AST(SGOT) 23 U/L (<=31); Alanine Aminotransfer ALT/SGPT 21 U/L (<=34); Albumin, Serum 4.5 g/dL (3.4-4.8); Alkaline Phosphatase 67 U/L (35-104); Bilirubin, Direct 0.12 mg/dL (0.00-0.30); Cholesterol 183 mg/dL (<=200); Globulin 2.5 g/dL (2.2-4.2); Low Density Lipoprotein Calc. 87 mg/dL; Triglycerides 142 mg/dL; Very Low Density Lipoprotein 28 mg/dL (5-40); cholesterol:hdl ratio screen 2.55
== END | disposition home or self-care (01) ==
LOC: LAB 11:24
PROVIDERS: PCP Internal Medicine; Referring Provider Nurse Practitioner Gerontology; Visit Provider Nurse Practitioner Gerontology
DX: E78.5 Hyperlipidemia, unspecified (principal)
CPT/HCPCS: 36415; 80061; 80076

== ENCOUNTER → 2025-01-27 | Outpatient (CLI) | payer MEDICARE, OTHER, SELFPAY ==
--- NOTE | 2025-01-27 15:15 | BI_ITS ---
EXAM: SCRN MAMM (CAD)W/RADHA BILAT DATE: 01/27/2025 CLINICAL HISTORY: F, Age 84 y/o , SCREENING No family history. Prior bilateral breast reduction surgery. Prior bilateral needle biopsies. Chronic inversion of both nipples. TECHNIQUE: Procedure Code: [id number] Modality: MG Procedure: SCRN MAMM (CAD)W/RADHA BILAT COMPARISON: Prior exam(s) dated prior study dated January 21, 2024.. FINDINGS: TISSUE DENSITY: There are scattered areas of fibroglandular density. Bilateral Breast Mammographic Findings: No significant masses, calcifications or other abnormalities are identified. Once again, there is retraction of the areolar nipple complex bilaterally. A tissue clip marker is seen in the central portion of the left breast as well as a tissue clip marker in the central medial portion of the right breast. No suspicious masses, areas of developing architectural distortion, or suspicious calcifications. There has been no significant interval change. BI/SCRN MAMM (CAD)W/RADHA BILAT IMPRESSION: Stable bilateral screening mammogram. OVERALL FINAL ASSESSMENT BI-RADS 2: BENIGN RECOMMENDATION: Routine annual follow-up in 1 Year Additional Recommendation none A letter with findings and recommendations will be mailed to the patient. Reading Location: [facility]
== END | disposition home or self-care (01) ==
LOC: OPBI 15:10
PROVIDERS: PCP Internal Medicine; Referring Provider Internal Medicine; Visit Provider Internal Medicine
DX: Z12.31 Encounter for screening mammogram for malignant neoplasm of breast (principal)
CPT/HCPCS: 77063; 77067